=== PATIENT | male | born 1950 | race Caucasian/White ===

== ENCOUNTER 2018-03-14 11:23 | Inpatient (IN) | payer MEDICARE, SELFPAY ==
[~2018-03-14 11:23] MED LIST: ISOVUE-370 76%-LOCM 1 ML ONE
[2018-03-14] MEDS ORDERED: Acetaminophen 500 MG TAB ONE ×2 (12:00→12:02)
[2018-03-14] MEDS ORDERED: Acetaminophen 650 MG Suppository ONE (12:04)
[2018-03-14 12:16] LABS: Hemoglobin 12.5 g/dL (14.0-18.0); Mean Corpuscular HGB CONC 33.2 g/dL (32.0-36.0); Mean Corpuscular Hemoglobin 35.6 pg (27.0-31.0); Mean Platelet Volume 8.2 fL (7.4-10.4); Platelet Count 281 thou/uL (130-400); RBC Distribution Width 13.3 % (11.5-14.5); White Blood Cell (WBC) Count 12.3 thou/uL (4.8-10.8)
[2018-03-14 12:31] LABS: Band 35 % (5-11); Lymphocytes 8 % (21-51); MDiff Complete? YES; Macrocytosis SLIGHT = 6-15 cells (100X) (0-5/hpf); Monocytes 7 % (0-10); Neutrophil 49 % (42-75); PLT Morphology Comment Appears Adequate
[2018-03-14 12:35] LABS: ALT (SGPT) 27 U/L (8-55); AST (SGOT) 71 U/L (5-34); Albumin 3.6 g/dL (3.4-4.8); Alkaline Phosphatase 71 U/L (40-150); Anion Gap 22 mmol/L (10-20); BUN (Urea Nitrogen) 40 mg/dL (8.4-25.7); Bilirubin, Total 0.5 mg/dL (0.2-1.2); Calc. Creatinine Clearance 0 mL/min (70-130); Calcium 8.7 mg/dL (7.8-10.44); Carbon Dioxide 16 mmol/L (23-31); Chloride 99 mmol/L (98-107); Estimated GFR-MDRD 36; Globulin 3.3 g/dL (2.4-3.5); Glucose 81 mg/dL (80-115); Potassium 5.6 mmol/L (3.5-5.1); Protein, Total 6.9 g/dL (5.8-8.1); Sodium 131 mmol/L (136-145)
[2018-03-14 12:45] LABS: CKMB 76.9 ng/mL (0-6.6)
[2018-03-14] MEDS ORDERED: Piperacillin/Tazobactam 4.5 GM VIAL ONE (13:51)
--- NOTE | 2018-03-14 14:32 | CT ---
CT OF THE ABDOMEN AND PELVIS WITH IV CONTRAST: Date: 03/14/18 INDICATION: History of abdominal pain and buttocks blistering. FINDINGS: There is mild bibasilar atelectasis. There is a calcified granuloma in the right lower lobe. Adrenal glands and pancreas appear within normal limits. There are calcified granuloma within the spring er and spleen. There is mild ectasia of the infrarenal abdominal aorta measuring 2.9 cm. There are scattered diverticula involving the colon. There is moderate dilatation of the bladder. No evidence of acute osseous abnormality is evident. IMPRESSION: 1. No definite acute abnormality. 2. Findings of prior granulomatous disease. 3. Mild ectasia of the infrarenal abdominal aorta is stable to the comparison dated 12/31/15. 4. Moderate distention of the bladder. 5. Colonic diverticulosis without evidence of active diverticulitis. POS: [facility]
[2018-03-14 15:48] LABS: Bilirubin Negative (Negative); Blood, Urine Trace (Negative); Clarity CLEAR (Clear); Glucose, Urine (Dipstick) Negative (Negative); Leukocyte Negative (Negative); Nitrite Positive (Negative); Protein, Urine (Dipstick) Trace mg/dL (Neg-Trace); Specific Gravity, Urine 1.023 (1.002-1.036); Urobilinogen 0.2 mg/dL (0.2-1.0)
[2018-03-14 15:50] LABS: Bacteria/HPF None Seen HPF (None Seen); Hyaline Casts/LPF 0-3 HYALINE CAST LPF (0-3 Hyaline); Pathc Cast-AUWi Flag 0.43 (0-2.49); Squamous Epithelial None Seen HPF (0-3); WBC/HPF 0-3 HPF (0-3)
--- NOTE | 2018-03-14 16:00 | RAD ---
CHEST 1 VIEW: Date: 03/14/18 COMPARISON: 09/17/16. HISTORY: Fever. FINDINGS: Normal cardiac silhouette. Pulmonary vessels and hilum are normal. Costophrenic angles are clear. No consolidation or mass. No pneumothorax or osseous abnormalities. IMPRESSION: No acute cardiopulmonary process. POS: [facility]
[2018-03-14] MEDS ORDERED: Acetaminophen 325 MG TAB PO PRN (16:17)
[2018-03-14] MEDS ORDERED: Vancomycin HCl 1 GM in Premix Bag 1 BAG IVPB SCH (16:30)
[2018-03-14] MEDS ORDERED: Heparin 10,000 UNITS/ 10 ML VIAL ONE (16:35)
[2018-03-14 16:41] LABS: Troponin I 0.023 ng/mL (< 0.028)
[2018-03-14 16:45] LABS: Alcohol Less than 10 mg/dL (Less than 10); Anion Gap 15 mmol/L (10-20); BUN (Urea Nitrogen) 36 mg/dL (8.4-25.7); Calc. Creatinine Clearance 0 mL/min (70-130); Calcium 8.3 mg/dL (7.8-10.44); Carbon Dioxide 18 mmol/L (23-31); Chloride 102 mmol/L (98-107); Estimated GFR-MDRD 44; Glucose 99 mg/dL (80-115); Potassium 5.2 mmol/L (3.5-5.1); Sodium 130 mmol/L (136-145)
[2018-03-14] MEDS ORDERED: Sodium Chloride 0.9% 500 ML IV SCH (17:00)
[2018-03-14] MEDS ORDERED: Amiodarone HCl 450 MG, Admixture Fee 1 EACH in Dextrose 5% in Water 250 ML IVPB SCH (17:30)
[2018-03-14] MEDS ORDERED: Amiodarone HCl 150 MG, Admixture Fee 1 EACH in Dextrose 5% in Water 100 ML IVPB SCH (17:30)
[2018-03-14] MEDS ORDERED: NACL ISO OSM IVPB SCH (18:00)
[2018-03-14] MEDS ORDERED: FLUCONAZOLE IVPB SCH (18:00)
[2018-03-14] MEDS ORDERED: ADMIXTURE FEE CHEMO IVPB SCH (18:00)
[2018-03-14] MEDS ORDERED: VANCOMYCIN/ZOSYN IVPB PRN (18:06)
--- NOTE | 2018-03-14 18:08 | CT ---
CT BRAIN 03/14/18 HISTORY: Altered mental status. Noncontrast enhanced CT images of the brain obtained. Images demonstrate age appropriate cortical atrophy. No evidence of acute intracranial masses, hemorr hages, strokes or contusions seen. IMPRESSION: Unremarkable CT brain. POS: [facility]
[2018-03-14] MEDS: Multivitamins, Adult 10 ML, Folic Acid 1 MG, Thiamine HCl 100 MG in Dextrose 5 %-0.45 %... IV SCH (18:17)
[2018-03-14] MEDS: Sodium Chloride 0.9% 1,000 ML IV SCH (18:36)
[2018-03-14] MEDS ORDERED: Vancomycin HCl 500 MG in Sodium Chloride 0.9% 100 ML IVPB SCH (18:45)
[2018-03-14 19:25] LABS: Troponin I 0.014 ng/mL (< 0.028)
--- NOTE | 2018-03-14 19:38 | RAD ---
AP VIEW CHEST: 03/14/18 HISTORY: Fever, sepsis, status post line placement. AP view chest is obtained on 03/14/18. Comparison made to previous exam from earlier in the day on 03/14/18. AP view chest demonstrates placement of a right jugular central line distal tip overlying the right a trium. No evidence of hemo or pneumothorax seen. Pulmonary vasculature congestion seen. No evidence of effus ions or pneumonia seen. IMPRESSION: Pulmonary vascular congestion otherwise unremarkable AP view chest. POS: [facility]
[2018-03-14] MEDS: Piperacillin/Tazobactam 3.375 GM in Sodium Chloride 0.9% 100 ML IVPB SCH (19:50)
[2018-03-14] MEDS: Famotidine/PF 20 mg/2ml Vial SLOW IVP SCH (20:38)
[2018-03-14] MEDS: ADMIXTURE FEE CHEMO IVPB SCH (20:38)
[2018-03-14] MEDS: NACL ISO OSM IVPB SCH (20:38)
[2018-03-14] MEDS: FLUCONAZOLE IVPB SCH (20:38)
--- NOTE | 2018-03-14 22:52 | HP ---
CHIEF COMPLAINT: Fever. HISTORY OF PRESENT ILLNESS: This patient is a 68-year-old male who has previously been admitted to [facility] with similar findings. The patient has a history of significant alcoholism and it is un clear if he was actually caring for the gentleman but sounds like his ex- may be working in on [facility]. Today, the patient presented via the emergency department with the complaints of fevers. The omega chávez is not giving much history at the moment and is not entirely clear how it came to pass. He was brought to the emergency room and it sounds like it was mostly related to febrile illness and perhaps some generalized weakness. ER provider primarily get the history from the EMS. Apparently, the omega chávez had some rash onset for about 10 days prior to admission that has been worsening. He also repor sherry fevers, chills, and was incontinent and apparently had some abdominal discomfort with palpation o n the scene. He had described to the ER physician, 02/03 pain, reported he had some associated chills . They also reported review of systems that was otherwise unremarkable. The patient currently is so mnolent. He is difficult to arouse. He does eventually wake up a bit and then goes back to sleep ve ry promptly. In the emergency department, the patient was found to have significant dermatitis. The patient was febrile to 100.6 and his heart rate up to 108 concerning for possibility of sepsis. The patient received 1 liter of normal saline. He was given vancomycin and Zosyn. REVIEW OF SYSTEMS: As noted above, cannot be obtained from the patient. PAST MEDICAL HISTORY: Obtained from the patient's medical record, indicates that he has the prior ms story of hypertension, peripheral vascular disease, hyperlipidemia, alcoholism. PAST SURGICAL HISTORY: Right BKA in 2013, inguinal hernia repair, and vein ablation. FAMILY HISTORY: Unobtainable. Records indicate he denied any significant family history in the past . ALLERGIES: None known. HOME MEDICATIONS: Cannot be confirmed. PHYSICAL EXAMINATION: VITAL SIGNS: Most recent vital signs, BP 125/54, pulse 67, respirations 18, O2 sat 95% on room air. GENERAL APPEARANCE: Age-appropriate male. He is very somnolent. He does not arouse even to a franks al rub; however, when attempting to roll the patient, he looked at his backside. He does reach out t o grab the rail, help with a turn, but then is not terribly interactive. HEENT: His pupils are sluggish, but reactive. I do not see any oral lesions to the degree that he l et me examine. NECK: Supple and symmetric. CARDIOVASCULAR: His heart is regular rate and rhythm without murmur. LUNGS: Clear bilaterally. ABDOMEN: Soft, nontender, nondistended with positive bowel sounds. No masses, no organomegaly. The re is no evidence of tenderness at this point. EXTREMITIES: he has right BKA. Left lower extremity has significant dermatitis consistent with poss ible tinea pedis over the plantar surface of the foot extending up on to the dorsum. He has signific ant onychomycosis. SKIN: In addition to the foot findings, the patient has dense red erythema that is fairly well merritt cated over the genitals extending onto the medial thighs about 6 to 8 inches and extending up to the gluteal cleft from the perineum with some minor skin breakdown in the gluteal cleft area as well. Th e whole area has a pretty foul odor. LABORATORY DATA: White count 12.3, hemoglobin 12.5, platelets 281, 35% bands. Sodium 131, potassium 5.6, chloride 99, CO2 of 16, BUN 40, creatinine 1.9, AST 71, ALT 27, CK is 2572, CK-MB 76.9. Urinal ysis shows trace ketones, trace blood, positive nitrites. IMAGING STUDIES: Chest x-ray is negative. CT of the abdomen and pelvis reveals some diverticulosis without evidence of diverticulitis. Findings of prior granulomatous disease. Moderate distention of the bladder. Mild ectasia of the infrarenal abdominal aorta, stable from previous exam in 2016. EK G shows some sinus bradycardia, some sinus arrhythmia, and premature ventricular complexes. IMPRESSION AND PLAN: 1. Sepsis. The patient has had some tachycardia, tachypnea, elevated white blood count with signifi cant percentage of bands with evidence of infection in the perineal area. The patient was given vanc omycin and Zosyn in the emergency department, I believe that is a reasonable regimen, we will continu e that for now. He has blood cultures and wound cultures pending. We will hydrate; however, the pat ient has some hyponatremia and given his history of alcoholism and I want to be careful not to be ove rly aggressive, although he needs the fluids, need to not rapidly reverse what is still relatively mi ld hyponatremia. 2. Skin infection of the perineum with cellulitis. The patient appears to have cellulitic changes i nvolving the medial thighs into the gluteal cleft. There are also some erythema of the scrotum and p anna, but this does not appear to be of Rebecca's gangrene at this time. In fact, this appears to b e a significant burn from where the patient has likely been voiding and likely sitting in urine for a n extended period of time. This looks like it may be now secondarily infected. The patient will con tinue with the vancomycin and Zosyn. I will place a Reese catheter and ask Wound Care to see the pat ient. We will also cover with some Diflucan for the concerning possibility that there may be some fu ngal component of this as well. 3. Alcoholism. We will check an alcohol level now as the patient is not terribly responsive. He do es not have the odor of alcohol at the moment. We will also order a CT of the head just to clear any new pathology there. 4. Hyponatremia likely secondary to chronic alcohol use. The patient also appears to have some dehy dration. He will be receiving IV normal saline, but he will also be getting some D5 half at a lower rate for the banana bag. 5. Hyperkalemia. Repeating labs now should improve with hydration. No evidence of requirements for more aggressive treatment. 6. Dehydration. The patient has some prerenal azotemia and appears to be clinically dry on exam. W e will hydrate. 7. Acute renal insufficiency. The patient's labs back in June indicated a normal creatinine, it is now 2.9 with prerenal indices. Should improve with hydration, we will renally dose meds and janeen nue to monitor. 8. Rhabdomyolysis. The patient's CK is elevated at 2572. We will continue to trend that with hydra tion. I do not believe it is high enough, we need to consider alkalinizing the urine at this point, although he does appear to have a little bit of a metabolic acidosis. I think that will improve with hydration. 9. Elevated CK-MB. We will continue to trend the patient's troponin. His repeat is 0.023. 10. Mild metabolic acidosis with CO2 of 16. Again, suspect this will improve with hydration and not require bicarbonate, we will continue to monitor. 11. Macrocytosis secondary to significant alcohol use over the long-term. We will give the patient daily banana bag. 12. History of hypertension. We will attempt to clarify the patient's medication regimen. 13. Peripheral vascular disease. We will avoid sequential compression devices and provide Lovenox f or deep venous thrombosis prophylaxis.
[2018-03-15] MEDS: Sodium Chloride 0.9% 1,000 ML IV SCH ×4 (02:45→21:06)
[2018-03-15] MEDS: Piperacillin/Tazobactam 3.375 GM in Sodium Chloride 0.9% 100 ML IVPB SCH ×4 (02:46→21:04)
[2018-03-15 05:14] LABS: #Eosinphils 0.2 thou/uL (0.0-0.7); #Lymphocytes 0.6 thou/uL (1.20-3.40); #Monocytes 0.7 thou/uL (0.11-0.59); #Neutrophils 5.6 thou/uL (1.40-6.50); %Basophils 0.6 % (0.0-1.0); %Lymphocytes 8.5 % (21.0-51.0); %Monocytes 9.9 % (0.0-10.0); %Neutrophils 77.9 % (42.0-75.0); Hemoglobin 11.3 g/dL (14.0-18.0); Mean Corpuscular HGB CONC 32.2 g/dL (32.0-36.0); Mean Corpuscular Hemoglobin 34.6 pg (27.0-31.0); Mean Platelet Volume 8.2 fL (7.4-10.4); Platelet Count 246 thou/uL (130-400); RBC Distribution Width 13.3 % (11.5-14.5); Red Blood Cell (RBC) Count 3.26 mill/uL (4.70-6.10); White Blood Cell (WBC) Count 7.1 thou/uL (4.8-10.8)
[2018-03-15 05:33] LABS: Anion Gap 12 mmol/L (10-20); BUN (Urea Nitrogen) 28 mg/dL (8.4-25.7); CK (CPK) 1141 U/L (30-200); Calc. Creatinine Clearance 76 mL/min (70-130); Calcium 8.2 mg/dL (7.8-10.44); Carbon Dioxide 21 mmol/L (23-31); Chloride 107 mmol/L (98-107); Estimated GFR-MDRD 70; Glucose 87 mg/dL (80-115); Potassium 4.2 mmol/L (3.5-5.1); Sodium 136 mmol/L (136-145)
[2018-03-15] MEDS: traMADol HCl 50 MG TAB PO PRN ×2 (05:53→13:54)
[2018-03-15] MEDS ORDERED: Enoxaparin Sodium 30 MG/0.3 ML SYRINGE SC SCH (09:00)
[2018-03-15] MEDS: Famotidine/PF 20 mg/2ml Vial SLOW IVP SCH ×2 (09:32→21:06)
--- NOTE | 2018-03-15 10:55 | PDOC.PN ---
- Subjective Encounter Start Date: 03/15/18 Encounter Start Time: 10:52 Doing much better. Reports that he drinks six beers per day. Smokes two packs per day. He is spending the majority of the time in a wheelchair. Only gets up to get from the the toilet. He is incontinent of urine. Typically when asleep, but daytime too. Gets out once a month to go to [facility] with ex-. Walks on prosthesis from door to her car. - Objective Resuscitation Status: Resuscitation Status FULL:Full Resuscitation Vital Signs & Weight: Vital Signs (12 hours) Temp Pulse Ox 03/15/18 08:00 97.8 F 03/15/18 04:00 98.5 F 03/15/18 00:53 98 03/15/18 00:00 98.8 F Weight Weight 180 lb 1.883 oz Most Recent Monitor Data Heart Rate from ECG 80 NIBP 127/60 NIBP BP-Mean 102 Respiration from ECG 14 SpO2 98 I&O: 03/14/18 03/15/18 03/16/18 06:59 06:59 06:59 Intake Total 1974 240 Output Total 2040 200 Balance -66 40 Result Diagrams: 03/15/18 04:37 03/15/18 04:37 Additional Labs: Accuchecks 03/14/18 23:53 POC Glucose 100 Phys Exam - Physical Examination Constitutional: NAD HEENT: PERRLA Respiratory: no wheezing, no rales, no rhonchi Cardiovascular: RRR, no significant murmur, no rub Gastrointestinal: soft, non-tender, no distention, positive bowel sounds Musculoskeletal: no edema Right BKA Neurological: non-focal Psychiatric: normal affect, A&O x 3 Deviation from normal: Was disoriented this morning per nurse. Deviation from normal: Leonel derm of face. Erythema of the groin, perineal and rectal cleft area. Dx/Plan (1) Septic shock Code(s): A41.9 - SEPSIS, UNSPECIFIED ORGANISM; R65.21 - SEVERE SEPSIS WITH SEPTIC SHOCK Status: Acute Comment: Became hypotensive in ED after I saw him. Required pressor support. Much improved with fluids. Downgrade unit. (2) Sepsis affecting skin Code(s): A41.9 - SEPSIS, UNSPECIFIED ORGANISM Status: Acute Comment: Gram positive bacteremia. Secondary to skin infection of the groin/buttock area. Continue Vanc/Zosyn. (3) Cellulitis and abscess of buttock Code(s): L02.31 - CUTANEOUS ABSCESS OF BUTTOCK; L03.317 - CELLULITIS OF BUTTOCK Status: Acute Comment: Secondary to incontinence. Continue abx. Continue wound care. (4) Acute renal failure Status: Acute Comment: Secondary to dehydration and sepsis. Improved with fluids. (5) PVD (peripheral vascular disease) Code(s): I73.9 - PERIPHERAL VASCULAR DISEASE, UNSPECIFIED Status: Acute (6) Hyperkalemia Code(s): E87.5 - HYPERKALEMIA Status: Resolved Comment: Improved. (7) Incontinence of urine Code(s): R32 - UNSPECIFIED URINARY INCONTINENCE Status: Acute Comment: Consult Urology. May only be functional due to poor mobility and alcohol. (8) Hyperlipidemia Code(s): E78.5 - HYPERLIPIDEMIA, UNSPECIFIED Status: Acute (9) Hypertension Code(s): I10 - ESSENTIAL (PRIMARY) HYPERTENSION Status: Acute Comment: Holding meds in light of the hypotension. (10) Macrocytic anemia Code(s): D53.9 - NUTRITIONAL ANEMIA, UNSPECIFIED Status: Acute Comment: Secondary to EtOH. banana bag. - Plan * above.
--- NOTE | 2018-03-15 11:22 | PDOC.EVN ---
Event Note - Event Note Event Note: Patient had an episode of NSVT in the ED. Amiodarone was given. He has not had any recurrence since that time. Will obtain an echo. Consult cardiology in light of his risk factors.
--- NOTE | 2018-03-15 11:30 | CON ---
DATE OF CONSULTATION: 03/15/2018 CONSULTING PHYSICIAN: Hospitalist group. REASON FOR CONSULTATION: ICU protocol. Following encompass 70 minutes of time. Of that time, greater than 50% was spent with the patient an d/or on the patient's unit in the hospital. HISTORY OF PRESENT ILLNESS: The patient is a 68-year-old male who was admitted to the hospital [facility] with fever and extensive cellulitic rash in his groin area extending posteriorly towards his but tocks and down his thighs posteriorly. He has cultures that are growing out gram positive cocci. He is currently on broad spectrum IV antibiotics. He is not requiring any vasopressors and has been he modynamically stable since the time of admission. PAST MEDICAL HISTORY: 1. Peripheral vascular disease requiring a right BKA in 2013. 2. Hypertension. 3. Hyperlipidemia. 4. Alcohol abuse. PAST SURGICAL HISTORY: Additionally, he has had inguinal hernia repair and vein ablation. FAMILY MEDICAL HISTORY: Remarkable for no illnesses. ALLERGIES: None. HOME MEDICATIONS: Desyrel 100 mg at bedtime, tramadol 50 mg b.i.d., lisinopril 10 mg daily. SOCIAL HISTORY: Two pack per day smoker, drinks a 6 pack per day. Denies any use of illicit drugs o r hard liquor. PHYSICAL EXAMINATION: VITAL SIGNS: Temperature 98.5, pulse 68, blood pressure 139/64. Intake since admission 1973, output 2039. HEENT: Pupils are reactive. Sclerae are anicteric. Oropharynx clear. NECK: He has a right IJ triple lumen catheter in place. CARDIOVASCULAR: S1, S2 regular without audible murmur. LUNGS: Clear without wheezing or rhonchi. ABDOMEN: Soft, nontender, nondistended. EXTREMITIES: Right BKA. SKIN: He has got a red cellulitic rash extending over his scrotum posteriorly towards his buttocks a nd down his thighs in a well demarcated margin. LABORATORY DATA: White blood cell count 7.1, hematocrit 35.0, platelet count 246. Sodium 136, potas sium 4.2, chloride 107, CO2 of 21, BUN 28, creatinine 1.0, glucose 87. Alcohol level was less than 1 0. X-RAY FINDINGS: His chest x-ray shows clear diaphragms. He has a defibrillator pad obscuring his ri ght hilum area. The central line is noted. No evidence of pneumothorax. ASSESSMENT: 1. Cellulitis. 2. Sepsis syndrome. 3. Peripheral vascular disease. 4. Alcoholism. PLAN: 1. This patient can be transferred out to a monitored bed. Patient will continue antibiotics - I th ink the Zosyn and vancomycin are reasonable. Once the identities of the organisms are back, then it can be consolidated. 2. Continue IV fluids, thiamine, folate supplementation. 3. Enoxaparin for deep venous thrombosis prophylaxis and Pepcid for gastrointestinal prophylaxis.
[2018-03-15] MEDS: Vancomycin HCl 1.5 GM in Sodium Chloride 0.9% 250 ML 300 ML IVPB SCH (12:42)
[2018-03-15 14:55] VITALS: BMI 26.6
[2018-03-15] MEDS ORDERED: Nystatin Cream 15 GM TUBE TOP SCH (15:00)
[2018-03-15] MEDS: Nystatin Cream 30 GM TUBE TOP SCH ×2 (16:06→21:05)
[2018-03-15] MEDS: Multivitamins, Adult 10 ML, Folic Acid 1 MG, Thiamine HCl 100 MG in Dextrose 5 %-0.45 %... IV SCH (16:06)
[2018-03-15] MEDS: traMADol HCl 50 MG TAB PO SCH (21:05)
[2018-03-15] MEDS: traZODone HCl 50 MG TAB PO SCH (21:06)
[2018-03-15] MEDS: FLUCONAZOLE IVPB SCH (22:00)
[2018-03-15] MEDS: NACL ISO OSM IVPB SCH (22:00)
[2018-03-15] MEDS: ADMIXTURE FEE CHEMO IVPB SCH (22:00)
--- NOTE | 2018-03-15 23:29 | CON ---
DATE OF CONSULTATION: 03/14/2018 CARDIOLOGY CONSULTATION PRIMARY CARE PHYSICIAN: [facility] REFERRING DOCTOR: Dr. Teja Covington. REASON OF CARDIOLOGY CONSULT: History of nonsustained ventricular tachycardia at the ER on 03/14/20 18. HISTORY OF PRESENT ILLNESS: Mr. Alexander is a 68-year-old male with a significant history of peripheral artery disease with history of amputation, the below knee amputation in 2013. Hypertensi on, hyperlipidemia, and alcohol or ETOH abuse. Patient was transferred to the emergency department w hen he was found down by patient's ex- who periodically check on this patient. Prior to this ev ent that accident, patient denying any cardiac complaints and patient does not know how long he was d own and when he woke up, he knew he was confused when the EMS asking the several questions to him. A fter patient was transferred to the emergency department, the patient was found to have a sepsis seco ndary to Gram positive cocci and yeast infection to the groin area. At that time according to the em ergency department report, patient has several episodes of nonsustained ventricular tachycardia; mckinley eloina, there are no EKG or any records showing the length of the episodes at this moment in his chart o r in his medical record. Initially, patient was on amiodarone bolus of 150 mg bolus IV was given and starts amiodarone IV drip; however, because patient could not tolerate a vein ablation due to blood pressure was hypotensive, the medication was discontinued. After patient was transferred to the ICU, at this moment, patient does not have any SVT episodes. Patient has aortogram in the 2011 with stent placement to right superficial femoral arteries by Dr. Danielle condon. Patient has a right [id number]-aht-[id number] amputation in 2013. He has not had any cardiac workup i n Dr. Vogel's office or in this hospital. PAST MEDICAL HISTORY: 1. Hypertension. 2. Peripheral artery disease with stent placement and right superficial femoral arteries in 2011. 3. Hyperlipidemia. 4. ETOH abuse and current smoker. PAST SURGICAL HISTORY: Right knee, right below-knee amputation in 2013, inguinal hernia repair and v ein ablation and stent to the right superficial femoral arteries in 2011. FAMILY HISTORY: Patient's father at the age of 50s with multiple myocardial infarctions. Jennifer ornelas's mother has history of diabetes, she is still alive. SOCIAL HISTORY: Patient is . He lives by himself in an apartment, but patient's ex- yoandy cked on him this once a day. Patient has 3 children who grown and live well. Patient drinks at leas t 6 packs of beer a day. He smoked 2 packs of cigarettes a day for more than 50 years. He denied an y illicit drug abuse. ALLERGIES: No known drug allergies. MEDICATIONS: Lisinopril 10 mg once a day, trazodone 100 mg once a day, tramadol 50 mg twice a day, a nd fenofibrate once a day for cholesterol. REVIEW OF SYSTEMS: Review of systems was negative, unless otherwise mentioned in the HPI or below. Patient denies any blood in the stool or urine. Patient's complaint of neuropathy to the bilateral h ands and left legs. He has hard to walk with his walk due to the history of BKA 2013 and he usually uses a wheelchair. PHYSICAL EXAMINATION: VITAL SIGNS: Blood pressure 131/68, pulse 71, respiratory rate 16, O2 sat 98% with room air, tempera ture 98.4. GENERAL: Patient is alert, oriented x4, mildly flat express, no acute distress at this moment. HEENT: Normocephalic, atraumatic. EYES: Extraocular muscle movement intact. ENT AND MOUTH: Oral and nasal mucosa was moist without lesion. NECK: Supple. No JVD. Normal range of motion. LUNGS: Clear to auscultation bilaterally, but there is diminished at the bases. CARDIOVASCULAR: Regular rate and rhythm. Normal S1, S2. There are no S3 or S4. No murmur, rubs no sherry. ABDOMEN: Soft, nontender, mass to palpate. Bowel sounds are present. MUSCULOSKELETAL: Patient able to move all extremities, but the below knee amputation to the right lo wer extremities. SKIN: There is redness and yeast-like infection to the groin area. PSYCHIATRIC: Alert, oriented x4. LABORATORY DATA: WBC today is 7.1, hemoglobin 11.3, MCV is 108, MCH 34.6, platelet 246. Sodium 136, potassium 4.2, BUN 28, creatinine 1.06. AST is 71, ALT is 27, creatine kinase is 2572 and 1141. Tr oponin is 0.010, 0.023, and 0.014. Urine ketone is trace positive, urine nitrite is positive, and bl ood culture x2 shows positive to Gram positive cocci. ASSESSMENT AND PLAN: 1. Status post nonsustained ventricular tachycardia, unknown lengths and unknown morphology at this moment because no records in the chart or the medical record at this moment. Patient's off the amiod arone drip at this moment; however, he has not had any another episode since patient was transferred from the ER to the floor. We would like to continue to monitor with amiodarone drip at this moment, because patient could not tolerate. We would like to continue to monitor on the telemetry. 2. Sepsis secondary to Gram positive cocci. He is on the vancomycin and Zosyn, which is managed by patient's primary care doctor. 3. Hypertension. The patient's blood pressure is stable at this moment, we would like to continue t o monitor. Once patient's condition is stable, we like to resume patient's home blood pressure medic ations. 4. Peripheral artery disease with history of stent placement and below knee amputation in 2013. The re are 2+ pulses in the left bilateral lower extremities and right femoral arteries. At this moment, the patient denied any pain to the lower extremities. We would like to continue to monitor. He is on the Lovenox 40 mg subcutaneous once a day. 5. Hyperlipidemia. We like to start fenofibrate for this patient once we got dosage. 6. Elevated creatine kinase, which is possible due to the prolonged rhabdomyolysis from unknown july th of the down. 7. ETOH and current smoker. ETOH and smoking cessation education given to the patient. At this mom ent, patient does not want to start cessation for those and he does not want to down dose intake at t his moment. Thank you very much for allowing the Cardiology service to participate in care of this patient. We w ill follow along with the patient care team and make recommendation as appropriate.
--- NOTE | 2018-03-16 00:50 | CON ---
CARDIOLOGY CONSULT NOTE DATE OF ADMISSION: 03/14/2018 DTAE OF CONSULTATION: 03/15/2018 INDICATION FOR CONSULTATION: This is a 68-year-old gentleman who apparently had a possible syncopal episode, was in the emergency room earlier today as he was brought in by EMS after family member have called after that he was concerned with the patient on into the phone, apparently was found down at home and was brought to the emergency room. The patient thinks perhaps he fell off a wheelchair; how ever, the patient does have a history of alcohol use and may have had a fall due to the alcohol. Whe n he arrived in the emergency room, the patient had some nonsustained ventricular tachycardia or poss ibly ventricular tachycardia. He was started on IV amiodarone in the emergency room and was transfer red to the B side of the Intensive Care Unit. It would appear that this gentleman had an infection w hat appears to be yeast infection in the groin area. Also, around the genitals in the upper thighs a nd may actually have sepsis and this may be the etiology of the nonsustained ventricular tachycardia. We do not have any previous history that this gentleman has any coronary artery disease that I am a suh of. He does have peripheral vascular disease and has undergone a right BKA due to apparently ga ngrene. He did have venous insufficiency ulcers in the past. He underwent a venous ablation and the n also had arterial disease and underwent a stent placement to the proximal superficial femoral arter y. He then later underwent an amputation of the right lower extremity with a BKA. At this time, Matthew sotelo he is followed by the [facility]. He does not recall whether or not he has had any recent ev aluations from echocardiogram or stress testing at this time. Otherwise, he is relatively stable. H e denies any chest pain or significant shortness of breath. Unfortunately, he continues to smoke 1-2 packs a day and drinks about a 6 pack of alcohol a day. It sounds as if he is somewhat mobile, but pretty much sits in a chair and is sometimes incontinent of stool and urine and his hygiene is very p oor and thus he has now developed infections. At this time, his blood pressure is 110/58, his heart rate is 67 and he is showing a sinus rhythm. He is afebrile, respiratory rate 20. For the past medi makayla history, otherwise social history, review of systems, allergies and review of his medications, pl ease refer to the notes dictated by the nurse practitioner. I have reviewed those notes. We have di scussed with the patient. I would agree with that. PHYSICAL EXAMINATION: HEENT: Shows head to be normocephalic and atraumatic. Carotid pulses are present. I cannot hear an y bruits. CHEST: Clear to auscultation without rales, rhonchi, or wheezing. CARDIOVASCULAR: Exam reveals a regular rate and rhythm at this time. There were no significant murm urs, heaves, thrills, bruits, or rubs. ABDOMEN: Obese. Positive bowel sounds. No tenderness was noted. No masses were noted. EXTREMITIES: Showed no evidence of edema. He does have a right BKA. Pedal pulses are present in th e left lower extremity and left foot. NEUROLOGIC: The patient appears to be relatively intact. He is unable to get out of bed to do any f urther evaluations. Also, he gets able to walk with a prosthesis. LABORATORY AND X-RAY FINDINGS: Shows a hemoglobin of 11.3 with hematocrit of 35, WBC was 7.1 on admi ssion; however, last night around midnight, the WBC was 12.3. His chemistries show a sodium of 136, BUN was 28. His CK on admission was 2572, his MB was 76.9. Troponin I was 0.01 increased up to 0.02 and then has now decreased back down to 0.014 and this appears to be more of a muscle problem with i ncreased creatinine, then actual myocardial damage. There would not be unusual for the MB to be slig htly elevated with a CK of 2572. The patient did not know how long he has remained on the floor prio r to being brought to the emergency room. His urinalysis showed no significant bacteria. His plasma alcohol was less than 10. IMPRESSION: 1. Possible sepsis with significant infection involving the groin area which appears to be candidias is that may have superimposed infection. This is being treated by the medical team and he is relativ sandro asymptomatic at this time, does not appear to be very septic. 2. History of nonsustained ventricular tachycardia. We did not have the recording that showed in th e emergency room, but based on the physician that was in the emergency room last night, she was gris g another patient with a nurse, told her that the patient had ventricular tachycardia when she arrive d in the room, the patient already self terminated. We did not have any tracings to determine exactl y what that entailed, but at this time, he has not had any workup, would advise him to have an echoca rdiogram and probable stress testing prior to discharge to see whether or not there is any evidence o f coronary artery disease. 3. History of tobacco abuse. He will be advised to stop smoking. 4. History of alcohol abuse. Patient will need to be watched for withdrawals. 5. History of peripheral vascular disease. He is status post a right BKA, but the leg appears to be relatively stable. He has pedal pulses. 6. Rhabdomyolysis after being on the floor for an undetermined length of time. 7. Cellulitis and possible abscess also on the buttock area. It is being treated by the Hospitalist Service for this. Further care and recommendations will depend on the echocardiogram as well as str ess testing in this gentleman.
[2018-03-16] MEDS: Piperacillin/Tazobactam 3.375 GM in Sodium Chloride 0.9% 100 ML IVPB SCH ×2 (02:55→09:02)
[2018-03-16 05:20] LABS: #Eosinphils 0.4 thou/uL (0.0-0.7); #Lymphocytes 0.8 thou/uL (1.20-3.40); #Monocytes 0.8 thou/uL (0.11-0.59); #Neutrophils 4.1 thou/uL (1.40-6.50); %Basophils 0.7 % (0.0-1.0); %Eosinophils 5.9 % (0.0-10.0); %Monocytes 13.4 % (0.0-10.0); Hemoglobin 10.8 g/dL (14.0-18.0); Mean Corpuscular Hemoglobin 35.3 pg (27.0-31.0); Mean Platelet Volume 7.5 fL (7.4-10.4); Platelet Count 266 thou/uL (130-400); RBC Distribution Width 13.3 % (11.5-14.5); Red Blood Cell (RBC) Count 3.05 mill/uL (4.70-6.10); White Blood Cell (WBC) Count 6.2 thou/uL (4.8-10.8)
[2018-03-16 05:32] LABS: Anion Gap 9 mmol/L (10-20); BUN (Urea Nitrogen) 13 mg/dL (8.4-25.7); Calc. Creatinine Clearance 94 mL/min (70-130); Calcium 8.2 mg/dL (7.8-10.44); Carbon Dioxide 23 mmol/L (23-31); Chloride 108 mmol/L (98-107); Estimated GFR-MDRD 86; Glucose 115 mg/dL (80-115); Potassium 3.6 mmol/L (3.5-5.1); Sodium 136 mmol/L (136-145)
--- NOTE | 2018-03-16 09:02 | PRG ---
DATE OF SERVICE: 03/16/2018 He feels better. He says he is having some effects of diarrhea from the antibiotics he is taking. PHYSICAL EXAMINATION: VITAL SIGNS: On exam his temperature is 98.9, pulse 61, respirations 14, O2 sat 98% on room air, blo od pressure 125/56. HEENT: Unremarkable. NECK: No JVD. LUNGS: Clear to auscultation anteriorly. CARDIOVASCULAR: S1 and S2 regular. ABDOMEN: Soft. Groin still has cellulitic changes, but overall better than yesterday. LABORATORY DATA: White blood cell count 6.2, hematocrit 32.7, platelet count 266. Sodium 136, potas sium 3.8, chloride 108, CO2 23, BUN 13, creatinine 0.8, glucose 115. ASSESSMENT: 1. Cellulitis. 2. Sepsis syndrome. 3. Peripheral vascular disease. 4. Alcoholism. PLAN: At this point, I believe the patient can be transferred up to the medical floor. He will cont inue antibiotic therapy. He has multiple organisms growing out of the wound cultures. For the time being, he will stay on the current antibiotic regimen until we have final identification and sensitiv ities back.
[2018-03-16] MEDS: Enoxaparin Sodium 40 MG/0.4 ML SYRINGE SC SCH (09:03)
[2018-03-16] MEDS: Famotidine/PF 20 mg/2ml Vial SLOW IVP SCH ×2 (09:03→20:54)
[2018-03-16] MEDS: traMADol HCl 50 MG TAB PO SCH ×2 (09:03→20:53)
[2018-03-16] MEDS: Nystatin Cream 30 GM TUBE TOP SCH ×3 (09:12→21:15)
[2018-03-16 12:15] LABS: Vancomycin, Trough 12.2 ug/mL
[2018-03-16] MEDS ORDERED: Vancomycin HCl 1 GM in Premix Bag 1 BAG IVPB SCH (13:00)
--- NOTE | 2018-03-16 13:06 | CON ---
DATE OF CONSULTATION: 03/16/2018 REASON FOR CONSULTATION: Bacteremia. HISTORY OF PRESENT ILLNESS: A 68-year-old patient who has a history of alcoholism, chronic smoking and peripheral vascular disease with prior right BKA in 2013, who lives by himself in [place] and still has not abstained from his habit of drinking anywhere from 6-12 beers per day. He at this time was brought in by EMS after he was found with inability to get up from the ground, weakness and basically his ex- asked the police to go check on him and they activated EMS. The patient has had fever for the past 10 days approximately and a skin rash in the perineal area, upper thighs and gluteal region. The patient has incontinence of urine and that probably explains the areas of maceration described below. The patient was brought in. Initial findings included blood pressure 125/54, pulse 67, respirations 18, O2 sat 95% and his skin exam showed this area of maceration, which is better described below. His lungs were clear. Heart examination with regular rate without murmur. Abdomen is soft. Initial labs with a white cell count 12.3, hemoglobin 12.5, 35% bands , creatinine 1.9, AST 71, ALT 27. CK 2500. Chest x-ray without infiltrates. CT abdomen and pelvis with no major findings. There was moderate distention of the bladder though and we have 2 sets of blood cultures with Enterococcus faecalis and 1 out of 2 with methicillin-sensitive Staphylococcus aureus. Currently, Mr. Alexander is in bed. He is more alert. He knows he is in the hospital and knows his name. Recollection is somewhat faulty, but better than two days ago. He denies any headaches. No visual symptoms. No sore throat, odynophagia or dysphagia. No vomiting. Maybe some back pain. It is hard really to pin him down regarding this back pain. He states that this has been present since he was admitted and he has this pain mostly in the skin of the perineal area and gluteal region related to the maceration. PAST MEDICAL HISTORY: Includes chronic smoking, alcoholism, hypertension, peripheral vascular disease with prior right BKA and incarcerated hernia, which required inguinal repair. FAMILY HISTORY: Noncontributory. ALLERGIES: None. HOME MEDICATIONS: He was not taking any medication. CURRENT MEDICATIONS: Include Zosyn, nystatin, vancomycin, multivitamins, fluconazole and enoxaparin. PHYSICAL EXAMINATION: VITAL SIGNS: T-max 98.9, blood pressure 120/60, pulse 61, respirations 14-15, O2 saturation 99%. SKIN: Shows these areas of extensive maceration of the skin with erythema in the perineal area, gluteal region and groins. No ulceration noted. He has onychodystrophy in the left foot, very thickened nails and poor condition. No lymphadenopathy. HEENT: Ocular movements conjugate. Some conjunctival hyperemia. Nasal passages patent. Oral cavity with normal oral mucosa. NECK: Supple, no jugular vein distention, no carotid bruits. LUNGS: With symmetric air entry without crackles or wheezing. CARDIOVASCULAR: S1, S2, regular rate without murmurs. BACK: No back tenderness. Maybe in the lower back, there is mild to moderate tenderness. The patient has a right IJ triple lumen catheter. NEUROLOGIC: He is able to move extremities on command. Plantar responses are indifferent. He is awake, knows his name and knows that he is in the hospital. Could not tell me the date. LABORATORY DATA: Urinalysis with 0-3 WBCs. Trace protein. White cell count is down from 12.3-6.2, hemoglobin 10.8, platelets 266,000 and 67% neutrophils. Creatinine is down from 1.58 to 0.8, sodium 136, AST 71, ALT 27, CK was 2500, albumin 3.6, potassium 5.6 and now 3.6. Microbiology as noted above. There are some cultures from the skin in the perineal area with Pseudomonas, E. coli, gram negative jagruti and Enterococcus. There is no urine culture submitted. Imaging studies have been ordered, discussed above. ASSESSMENT: Alcoholism, peripheral vascular disease, chronic smoking, incontinence. Urine with possible urinary retention. Some element of back pain to be clarified further as soon as he is able to recall better his past recent history. Bacteremia with 2 different organisms with 2 out of 2 with Enterococcus faecalis and 1 out of 2 with methicillin sensitive Staph aureus without an obvious primary site except for the skin area. DISCUSSION: The differential diagnosis includes Enterococcus bacteremia from endocarditis versus urinary retention with upper tract infection without obvious cystitis as the most likely scenarios. We will have to wait to see if the second set turns positive for MSSA or will remain with 1 out of 2 only positive. The polymicrobial nature of his bacteremia would argue against endocarditis. Switch him to Rocephin and ampicillin. We will discontinue vancomycin and Zosyn. May need a RICHMOND to evaluate the valve. WES
--- NOTE | 2018-03-16 13:36 | PDOC.PN ---
- Subjective Encounter Start Date: 03/16/18 Encounter Start Time: 12:00 Doing better overall. Still has some pain with BM and cleaning up afterwards. - Objective Resuscitation Status: Resuscitation Status FULL:Full Resuscitation Vital Signs & Weight: Vital Signs (12 hours) Temp Pulse Resp BP Pulse Ox 03/16/18 11:51 98.8 F 58 L 15 139/64 99 03/16/18 08:08 98 03/16/18 07:30 98.9 F 61 14 125/56 L 98 03/16/18 04:00 98.9 F 67 18 132/63 99 Weight Admit Weight 175 lb Weight 190 lb 3.2 oz Most Recent Monitor Data Heart Rate from ECG 77 NIBP 127/60 NIBP BP-Mean 102 Respiration from ECG 15 SpO2 98 I&O: 03/15/18 03/16/18 03/17/18 06:59 06:59 06:59 Intake Total 1974 4766 Output Total 2040 2500 Balance -66 2266 Result Diagrams: 03/16/18 05:00 03/16/18 05:00 Additional Labs: Accuchecks 03/15/18 20:15 POC Glucose 105 Phys Exam - Physical Examination Constitutional: NAD Respiratory: no wheezing, no rales, no rhonchi, clear to auscultation bilateral Cardiovascular: RRR, no significant murmur, no rub Gastrointestinal: soft, non-tender, no distention, positive bowel sounds Musculoskeletal: no edema R BKA Neurological: non-focal Deviation from normal: Persistent cellulitic changes of the scrotal, groing, perineal and buttock -: areas. Dx/Plan (1) Septic shock Code(s): A41.9 - SEPSIS, UNSPECIFIED ORGANISM; R65.21 - SEVERE SEPSIS WITH SEPTIC SHOCK Status: Acute Comment: Apparently secondary to skin infection, but has Enterococcus in blood cultures. May be other source. (2) Sepsis affecting skin Code(s): A41.9 - SEPSIS, UNSPECIFIED ORGANISM Status: Acute Comment: Gram positive bacteremia. Secondary to skin infection of the groin/buttock area. Appreciate ID consult. Discussed with case with him. He has changed the abx appropriately. Continue with wound care. (3) Cellulitis and abscess of buttock Code(s): L02.31 - CUTANEOUS ABSCESS OF BUTTOCK; L03.317 - CELLULITIS OF BUTTOCK Status: Acute Comment: Secondary to incontinence. Continue abx, wound care , Reese catheter. (4) Acute renal failure Status: Acute Comment: Secondary to dehydration and sepsis. Improved with fluids. (5) PVD (peripheral vascular disease) Code(s): I73.9 - PERIPHERAL VASCULAR DISEASE, UNSPECIFIED Status: Acute (6) Incontinence of urine Code(s): R32 - UNSPECIFIED URINARY INCONTINENCE Status: Acute Comment: Consult Urology. May only be functional due to poor mobility and alcohol. (7) Hyperlipidemia Code(s): E78.5 - HYPERLIPIDEMIA, UNSPECIFIED Status: Acute (8) Hypertension Code(s): I10 - ESSENTIAL (PRIMARY) HYPERTENSION Status: Acute Comment: BP and renal function are normalized. Will resume his home ACEI. (9) Macrocytic anemia Code(s): D53.9 - NUTRITIONAL ANEMIA, UNSPECIFIED Status: Acute Comment: Secondary to EtOH. banana bag. (10) NSVT (nonsustained ventricular tachycardia) Code(s): I47.2 - VENTRICULAR TACHYCARDIA Status: Acute Comment: Had a brief run of NSVT in the ED, only witnessed by nurse. Brief and spontaneously resolved. Appreciate Cards consult. Needs stress testing prior to discharge. No major findings on echo. - Plan * May need empiric long-term treatment for the enterococcal bacteremia rather than the RICHMOND. He will be going to SNF/Rehab upon discharge and will be able to continue the abx without difficulty. He has central line now, but will go ahead and get the PICC. Can DC the central line once the PICC is in place. * Has a history of ethanol abuse. Reports he only drinks six beers per day now. No evidence of withdrawal. * Lives independently, but no really using the prosthesis. Does not believe he had adequate rehab. Continue therapy here. His ex- is his primary helper.
[2018-03-16] MEDS: Ampicillin 2 GM in Sodium Chloride 0.9% 100 ML IVPB SCH ×3 (14:28→20:51)
[2018-03-16] MEDS: cefTRIAXone\\ROCEPHIN 2 GM in Sodium Chloride 0.9% 100 ML IVPB SCH (14:29)
[2018-03-16] MEDS: Sodium Chloride 0.9% 1,000 ML IV SCH (14:41)
[2018-03-16] MEDS: Vancomycin HCl 1.5 GM in Sodium Chloride 0.9% 250 ML 300 ML IVPB SCH (14:42)
[2018-03-16] MEDS: Multivitamins, Adult 10 ML, Folic Acid 1 MG, Thiamine HCl 100 MG in Dextrose 5 %-0.45 %... IV SCH (17:23)
[2018-03-16] MEDS: traZODone HCl 50 MG TAB PO SCH (20:52)
[2018-03-16] MEDS: NACL ISO OSM IVPB SCH (20:54)
[2018-03-16] MEDS: FLUCONAZOLE IVPB SCH (20:54)
[2018-03-16] MEDS: ADMIXTURE FEE CHEMO IVPB SCH (20:54)
[2018-03-17] MEDS: Ampicillin 2 GM in Sodium Chloride 0.9% 100 ML IVPB SCH ×6 (01:05→21:25)
[2018-03-17 04:59] LABS: INR-International Normal Ratio 1.1
[2018-03-17] MEDS: traMADol HCl 50 MG TAB PO SCH ×2 (07:51→21:28)
[2018-03-17] MEDS: Famotidine/PF 20 mg/2ml Vial SLOW IVP SCH ×2 (07:51→21:25)
[2018-03-17] MEDS: Sodium Chloride 0.9% 1,000 ML IV SCH ×2 (07:55→15:10)
[2018-03-17] MEDS: Nystatin Cream 30 GM TUBE TOP SCH ×3 (07:57→21:29)
--- NOTE | 2018-03-17 08:46 | PRG ---
DATE OF SERVICE: 03/17/2018 The patient is complaining of diarrhea. He says his breathing is okay. PHYSICAL EXAMINATION: VITAL SIGNS: Temperature 98.3, pulse 60, respirations 18, O2 saturation 98%, blood pressure 156/74. HEENT: Unremarkable. NECK: No JVD. LUNGS: Clear. ABDOMEN: Soft, nontender to palpation. EXTREMITIES: Edematous. LABORATORY DATA: No new labs were done today. ASSESSMENT: 1. Cellulitis. 2. Diarrhea. 3. Polymicrobial sepsis. RECOMMENDATIONS: The patient is continuing antibiotics under the direction of Dr. Egan. The patien t mentioned having a MediPort installed, although I do see a consult or anything in the chart that di scusses that. His pulmonary status is stable. We have nothing further to offer the patient. Please consult if further assistance needed.
--- NOTE | 2018-03-17 14:46 | PDOC.PN ---
- Subjective Encounter Start Date: 03/17/18 Encounter Start Time: 11:45 Subjective: feels better, no sob - Objective Resuscitation Status: Resuscitation Status FULL:Full Resuscitation MAR Reviewed: Yes Vital Signs & Weight: Vital Signs (12 hours) Temp Pulse Resp BP Pulse Ox 03/17/18 11:20 98.3 F 53 L 19 157/74 H 97 03/17/18 07:43 98 03/17/18 07:07 98.3 F 52 L 18 156/74 H 98 03/17/18 04:00 98.3 F 53 L 16 157/69 H 99 Weight Admit Weight 175 lb Weight 190 lb 3.2 oz Most Recent Monitor Data Heart Rate from ECG 77 NIBP 127/60 NIBP BP-Mean 102 Respiration from ECG 15 SpO2 98 I&O: 03/16/18 03/17/18 03/18/18 06:59 06:59 06:59 Intake Total 4766 2000 Output Total 2500 2300 Balance 2266 -300 Result Diagrams: 03/16/18 05:00 03/16/18 05:00 Phys Exam - Physical Examination HEENT: PERRLA, moist MMs Neck: no JVD, supple Respiratory: no wheezing, no rales Cardiovascular: RRR, no significant murmur Gastrointestinal: soft, non-tender, positive bowel sounds Musculoskeletal: no edema, pulses present Neurological: non-focal, moves all 4 limbs right bka Psychiatric: normal affect, A&O x 3 Dx/Plan (1) Sepsis Code(s): A41.9 - SEPSIS, UNSPECIFIED ORGANISM Status: Acute Qualifiers: Sepsis type: methicillin susceptible Staphylococcus aureus Qualified Code(s ): A41.01 - Sepsis due to Methicillin susceptible Staphylococcus aureus Comment: and enterococcus (2) Bacteremia Code(s): R78.81 - BACTEREMIA Status: Acute Comment: sec to enterococcus and MSSA (3) Incontinence of urine Code(s): R32 - UNSPECIFIED URINARY INCONTINENCE Status: Acute (4) GRIS (acute kidney injury) Code(s): N17.9 - ACUTE KIDNEY FAILURE, UNSPECIFIED Status: Resolved (5) Alcohol withdrawal Code(s): F10.239 - ALCOHOL DEPENDENCE WITH WITHDRAWAL, UNSPECIFIED Status: Acute Qualifiers: Complication of substance-induced condition: with delirium Qualified Code(s ): F10.231 - Alcohol dependence with withdrawal delirium Comment: resolved (6) Hyperlipidemia Code(s): E78.5 - HYPERLIPIDEMIA, UNSPECIFIED Status: Chronic Qualifiers: Hyperlipidemia type: unspecified Qualified Code(s): E78.5 - Hyperlipidemia , unspecified (7) Hypertension Code(s): I10 - ESSENTIAL (PRIMARY) HYPERTENSION Status: Chronic Qualifiers: Hypertension type: essential hypertension Qualified Code(s): I10 - Essential (primary) hypertension (8) PVD (peripheral vascular disease) Code(s): I73.9 - PERIPHERAL VASCULAR DISEASE, UNSPECIFIED Status: Chronic - Plan is on rocephin and ampicillin -: diflucan for groin fungal infection -: will need rehab or swing bed -: has beckford, may dc or ?condom catheter -: unclear source of bacteremia * . Review of Systems - Medications/Allergies Allergies/Adverse Reactions: Allergies Allergy/AdvReac Type Severity Reaction Status Date / Time No Known Allergies Allergy Verified 03/14/18 20:53 Medications: Current Medications Acetaminophen (Tylenol) 650 mg PO Q4H PRN PRN Reason: Headache/Fever or Pain Last Admin: 03/15/18 12:48 Dose: 650 mg Enoxaparin Sodium (Lovenox) 40 mg SC 0900 [facility] Last Admin: 03/16/18 09:03 Dose: 40 mg Famotidine (Pepcid) 20 mg SLOW IVP Q12HR [facility] Last Admin: 03/17/18 07:51 Dose: 20 mg Multivitamins 10 ml/ Folic Acid 1 mg/ Thiamine HCl 100 mg / Dextrose/Sodium Chloride 1,011.2 mls @ 50 mls/hr IV 1800 [facility] Last Admin: 03/16/18 17:23 Dose: 1,011.2 mls Fluconazole/Sodium Chloride 200 mg/ Miscellaneous Medication 1 units/ Device 100 mls @ 100 mls/hr IVPB 2100 [facility] Last Admin: 03/16/18 20:54 Dose: 100 mls Sodium Chloride (Normal Saline 0.9%) 1,000 mls @ 75 mls/hr IV .[id number] [facility] Last Admin: 03/17/18 07:55 Dose: Not Given Ampicillin Sodium 2 gm/ Sodium (Chloride) 100 mls @ 200 mls/hr IVPB Q4HR [facility] Last Admin: 03/17/18 09:13 Dose: 100 mls Ceftriaxone Sodium 2 gm/ (Sodium Chloride) 100 mls @ 200 mls/hr IVPB Q24HR [facility] Last Admin: 03/16/18 14:29 Dose: 100 mls Nystatin (Mycostatin Cream) 0 gm TOP TID [facility] Last Admin: 03/17/18 07:57 Dose: 30 gm Tramadol HCl (Ultram) 50 mg PO BIDPRN PRN PRN Reason: Moderate Pain (4-6) Last Admin: 03/15/18 13:54 Dose: 50 mg Tramadol HCl (Ultram) 50 mg PO BID [facility] Last Admin: 03/17/18 07:51 Dose: 50 mg Trazodone HCl (Desyrel) 100 mg PO HS [facility] Last Admin: 03/16/18 20:52 Dose: 100 mg
[2018-03-17] MEDS: Enoxaparin Sodium 40 MG/0.4 ML SYRINGE SC SCH (15:08)
--- NOTE | 2018-03-17 15:19 | SPC ---
SONOGRAPHIC GUIDED LEFT UPPER EXTREMITY PICC PLACEMENT: HISTORY: Infectious colitis. FINDINGS: After explaining the procedure and answering all questions, left upper extremity was prepped and drap ed in the usual sterile fashion. Sterile technique, buffered local anesthesia, sonographic guidance, and a 22-gauge needle were used to carefully access the left brachial vein. Standard technique was then used to place the tip of a 5 [place]ik dual-lumen PICC so that the tip lies at the level of the sup erior vena cava. Catheter was flushed and secured externally. The patient tolerated the procedure w ell and was returned in unchanged condition. IMPRESSION: Left upper extremity PICC is ready for use. POS: [facility]
[2018-03-17] MEDS: cefTRIAXone\\ROCEPHIN 2 GM in Sodium Chloride 0.9% 100 ML IVPB SCH (15:48)
[2018-03-17] MEDS: Multivitamins, Adult 10 ML, Folic Acid 1 MG, Thiamine HCl 100 MG in Dextrose 5 %-0.45 %... IV SCH (16:55)
[2018-03-17] MEDS: ADMIXTURE FEE CHEMO IVPB SCH (21:24)
[2018-03-17] MEDS: FLUCONAZOLE IVPB SCH (21:24)
[2018-03-17] MEDS: NACL ISO OSM IVPB SCH (21:24)
[2018-03-17] MEDS: traZODone HCl 50 MG TAB PO SCH (21:28)
[2018-03-18] MEDS: Ampicillin 2 GM in Sodium Chloride 0.9% 100 ML IVPB SCH ×6 (02:02→19:53)
[2018-03-18] MEDS: traMADol HCl 50 MG TAB PO SCH ×2 (08:12→19:51)
[2018-03-18] MEDS: Sodium Chloride 0.9% 1,000 ML IV SCH ×2 (08:13→11:34)
[2018-03-18] MEDS: Famotidine/PF 20 mg/2ml Vial SLOW IVP SCH ×2 (08:13→19:51)
[2018-03-18] MEDS: Enoxaparin Sodium 40 MG/0.4 ML SYRINGE SC SCH (08:13)
[2018-03-18] MEDS: Vancomycin HCl 25 MG/ML Oral PO SCH ×4 (09:36→22:02)
[2018-03-18] MEDS: Nystatin Cream 30 GM TUBE TOP SCH ×3 (09:38→19:53)
[2018-03-18] MEDS: cefTRIAXone\\ROCEPHIN 2 GM in Sodium Chloride 0.9% 100 ML IVPB SCH (11:31)
--- NOTE | 2018-03-18 13:24 | EKG ---
Test Reason : Blood Pressure : / mmHG Vent. Rate : 052 BPM Atrial Rate : 052 BPM P-R Int : 202 ms QRS Dur : 078 ms QT Int : 408 ms P-R-T Axes : 073 -14 075 degrees QTc Int : 379 ms Sinus bradycardia with sinus arrhythmia with Premature ventricular complexes or Fusion complexes Confirmed by ROCHELLE LEIVA ([id number]), news videotape editor CECY ALEJANDRO ([id number]) on 03/18/2018 1:24:41 PM Referred By: Confirmed By:ROCHELLE LEIVA
--- NOTE | 2018-03-18 13:46 | PDOC.PN ---
- Subjective Encounter Start Date: 03/18/18 Encounter Start Time: 11:15 Subjective: diarrhea is better from last night, has some formed stool in between -: no nausea -: eating well - Objective Resuscitation Status: Resuscitation Status FULL:Full Resuscitation MAR Reviewed: Yes Vital Signs & Weight: Vital Signs (12 hours) Temp Pulse Resp BP Pulse Ox 03/18/18 08:05 98 03/18/18 07:43 98.5 F 59 L 20 169/75 H 98 Weight Admit Weight 175 lb Weight 190 lb 3.2 oz Most Recent Monitor Data Heart Rate from ECG 77 NIBP 127/60 NIBP BP-Mean 102 Respiration from ECG 15 SpO2 98 I&O: 03/17/18 03/18/18 03/19/18 06:59 06:59 06:59 Intake Total 19994 Output Total 2300 1400 Balance -300 894 Result Diagrams: 03/16/18 05:00 03/16/18 05:00 Phys Exam - Physical Examination HEENT: PERRLA, moist MMs Neck: no JVD, supple Respiratory: no wheezing, no rales Cardiovascular: RRR, no significant murmur Gastrointestinal: soft, non-tender, positive bowel sounds Musculoskeletal: no edema, pulses present Neurological: non-focal, moves all 4 limbs right bka Psychiatric: normal affect, A&O x 3 Dx/Plan (1) Sepsis Code(s): A41.9 - SEPSIS, UNSPECIFIED ORGANISM Status: Acute Qualifiers: Sepsis type: methicillin susceptible Staphylococcus aureus Qualified Code(s ): A41.01 - Sepsis due to Methicillin susceptible Staphylococcus aureus Comment: and enterococcus (2) Bacteremia Code(s): R78.81 - BACTEREMIA Status: Acute Comment: sec to enterococcus and MSSA (3) Incontinence of urine Code(s): R32 - UNSPECIFIED URINARY INCONTINENCE Status: Acute (4) GRIS (acute kidney injury) Code(s): N17.9 - ACUTE KIDNEY FAILURE, UNSPECIFIED Status: Resolved (5) Alcohol withdrawal Code(s): F10.239 - ALCOHOL DEPENDENCE WITH WITHDRAWAL, UNSPECIFIED Status: Acute Qualifiers: Complication of substance-induced condition: with delirium Qualified Code(s ): F10.231 - Alcohol dependence with withdrawal delirium Comment: resolved (6) Hyperlipidemia Code(s): E78.5 - HYPERLIPIDEMIA, UNSPECIFIED Status: Chronic Qualifiers: Hyperlipidemia type: unspecified Qualified Code(s): E78.5 - Hyperlipidemia , unspecified (7) Hypertension Code(s): I10 - ESSENTIAL (PRIMARY) HYPERTENSION Status: Chronic Qualifiers: Hypertension type: essential hypertension Qualified Code(s): I10 - Essential (primary) hypertension (8) PVD (peripheral vascular disease) Code(s): I73.9 - PERIPHERAL VASCULAR DISEASE, UNSPECIFIED Status: Chronic - Plan is on ampicillin q4h and ceftriaxone -: oral vanc for c.diff, diflucan -: iv hydration until diarrhea resolves -: to mobilize with his prosthesis as tolerated -: awaiting placement ?[place] per patient * . Review of Systems - Medications/Allergies Allergies/Adverse Reactions: Allergies Allergy/AdvReac Type Severity Reaction Status Date / Time No Known Allergies Allergy Verified 03/14/18 20:53 Medications: Current Medications Acetaminophen (Tylenol) 650 mg PO Q4H PRN PRN Reason: Headache/Fever or Pain Last Admin: 03/15/18 12:48 Dose: 650 mg Enoxaparin Sodium (Lovenox) 40 mg SC 0900 [facility] Last Admin: 03/18/18 08:13 Dose: 40 mg Famotidine (Pepcid) 20 mg SLOW IVP Q12HR [facility] Last Admin: 03/18/18 08:13 Dose: 20 mg Multivitamins 10 ml/ Folic Acid 1 mg/ Thiamine HCl 100 mg / Dextrose/Sodium Chloride 1,011.2 mls @ 50 mls/hr IV 1800 [facility] Last Admin: 03/17/18 16:55 Dose: 1,011.2 mls Fluconazole/Sodium Chloride 200 mg/ Miscellaneous Medication 1 units/ Device 100 mls @ 100 mls/hr IVPB 2100 [facility] Last Admin: 03/17/18 21:24 Dose: 100 mls Sodium Chloride (Normal Saline 0.9%) 1,000 mls @ 75 mls/hr IV .[id number] [facility] Last Admin: 03/18/18 11:34 Dose: 1,000 mls Ampicillin Sodium 2 gm/ Sodium (Chloride) 100 mls @ 200 mls/hr IVPB Q4HR [facility] Last Admin: 03/18/18 12:41 Dose: 100 mls Ceftriaxone Sodium 2 gm/ (Sodium Chloride) 100 mls @ 200 mls/hr IVPB Q24HR [facility] Last Admin: 03/18/18 11:31 Dose: 100 mls Nystatin (Mycostatin Cream) 0 gm TOP TID [facility] Last Admin: 03/18/18 09:38 Dose: 30 gm Tramadol HCl (Ultram) 50 mg PO BIDPRN PRN PRN Reason: Moderate Pain (4-6) Last Admin: 03/15/18 13:54 Dose: 50 mg Tramadol HCl (Ultram) 50 mg PO BID [facility] Last Admin: 03/18/18 08:12 Dose: 50 mg Trazodone HCl (Desyrel) 100 mg PO HS [facility] Last Admin: 03/17/18 21:28 Dose: 100 mg Vancomycin HCl (First Vancomycin) 125 mg PO QID [facility] Last Admin: 03/18/18 13:08 Dose: 125 mg
[2018-03-18] MEDS: Multivitamins, Adult 10 ML, Folic Acid 1 MG, Thiamine HCl 100 MG in Dextrose 5 %-0.45 %... IV SCH (18:25)
[2018-03-18] MEDS: traZODone HCl 50 MG TAB PO SCH (19:51)
[2018-03-18] MEDS: ADMIXTURE FEE CHEMO IVPB SCH (22:02)
[2018-03-18] MEDS: FLUCONAZOLE IVPB SCH (22:02)
[2018-03-18] MEDS: NACL ISO OSM IVPB SCH (22:02)
[2018-03-19] MEDS: Ampicillin 2 GM in Sodium Chloride 0.9% 100 ML IVPB SCH ×4 (00:49→12:59)
[2018-03-19] MEDS: Vancomycin HCl 25 MG/ML Oral PO SCH ×2 (09:02→12:59)
[2018-03-19] MEDS: Famotidine/PF 20 mg/2ml Vial SLOW IVP SCH (09:03)
[2018-03-19] MEDS: traMADol HCl 50 MG TAB PO SCH (09:03)
[2018-03-19] MEDS: Enoxaparin Sodium 40 MG/0.4 ML SYRINGE SC SCH (09:03)
[2018-03-19] MEDS: Sodium Chloride 0.9% 1,000 ML IV SCH (09:04)
[2018-03-19] MEDS: Nystatin Cream 30 GM TUBE TOP SCH (09:12)
[2018-03-19] MEDS: cefTRIAXone\\ROCEPHIN 2 GM in Sodium Chloride 0.9% 100 ML IVPB SCH (12:14)
--- NOTE | 2018-03-19 13:03 | PDOC.PN ---
- Subjective Encounter Start Date: 03/19/18 Encounter Start Time: 09:35 Subjective: feels better, had 2 bm's over last 20hrs -: wants to go to [facility] - Objective Resuscitation Status: Resuscitation Status FULL:Full Resuscitation MAR Reviewed: Yes Vital Signs & Weight: Vital Signs (12 hours) Temp Pulse Resp BP BP Pulse Ox 03/19/18 11:56 98.0 F 59 L 18 157/76 H 97 03/19/18 09:00 97 03/19/18 07:31 97.8 F 56 L 18 152/70 H 97 03/19/18 04:00 98.0 F 62 16 176/92 H Weight Admit Weight 175 lb Weight 190 lb 3.2 oz Most Recent Monitor Data Heart Rate from ECG 77 NIBP 127/60 NIBP BP-Mean 102 Respiration from ECG 15 SpO2 98 I&O: 03/18/18 03/19/18 03/20/18 06:59 06:59 06:59 Intake Total 2294 3690 Output Total 1400 2450 Balance 894 1240 Result Diagrams: 03/16/18 05:00 03/16/18 05:00 Phys Exam - Physical Examination HEENT: PERRLA, moist MMs Neck: no JVD, supple Respiratory: no wheezing, no rales Cardiovascular: RRR, no significant murmur Gastrointestinal: soft, non-tender, positive bowel sounds Musculoskeletal: no edema, pulses present Neurological: non-focal, moves all 4 limbs Psychiatric: normal affect, A&O x 3 Dx/Plan (1) Sepsis Code(s): A41.9 - SEPSIS, UNSPECIFIED ORGANISM Status: Acute Qualifiers: Sepsis type: methicillin susceptible Staphylococcus aureus Qualified Code(s ): A41.01 - Sepsis due to Methicillin susceptible Staphylococcus aureus Comment: and enterococcus (2) Bacteremia Code(s): R78.81 - BACTEREMIA Status: Acute Comment: sec to enterococcus and MSSA (3) Incontinence of urine Code(s): R32 - UNSPECIFIED URINARY INCONTINENCE Status: Acute (4) GRIS (acute kidney injury) Code(s): N17.9 - ACUTE KIDNEY FAILURE, UNSPECIFIED Status: Resolved (5) Alcohol withdrawal Code(s): F10.239 - ALCOHOL DEPENDENCE WITH WITHDRAWAL, UNSPECIFIED Status: Acute Qualifiers: Complication of substance-induced condition: with delirium Qualified Code(s ): F10.231 - Alcohol dependence with withdrawal delirium Comment: resolved (6) Hyperlipidemia Code(s): E78.5 - HYPERLIPIDEMIA, UNSPECIFIED Status: Chronic Qualifiers: Hyperlipidemia type: unspecified Qualified Code(s): E78.5 - Hyperlipidemia , unspecified (7) Hypertension Code(s): I10 - ESSENTIAL (PRIMARY) HYPERTENSION Status: Chronic Qualifiers: Hypertension type: essential hypertension Qualified Code(s): I10 - Essential (primary) hypertension (8) PVD (peripheral vascular disease) Code(s): I73.9 - PERIPHERAL VASCULAR DISEASE, UNSPECIFIED Status: Chronic (9) C. difficile colitis Status: Acute - Plan is on vanc oral, iv amp and ceftriaxone -: will need outpt [place] in 2 weeks -: pt wants to go to [facility], if accepted may dc -: duration of antibiotics is total of 4 weeks/will confirm with -: will need oral vanc until iv antibiotics are on * .
[2018-03-19 13:40] VITALS: BP 169/82; TEMP 98.2
--- NOTE | 2018-03-19 14:08 | PRG ---
DATE OF SERVICE: 03/19/2018 SUBJECTIVE: The patient is feeling better, being transferred to rehabilitation. No headaches. No s hortness of breath or abdominal pain. The skin eruption in the intertriginous areas of the groin and back is improving. OBJECTIVE: VITAL SIGNS: Normal except for elevation of systolic blood pressure. SKIN: Again, intertrigo improving significantly in the groin and gluteal areas. LUNGS: Clear. HEART: S1, S2, regular rate. ABDOMEN: Soft, not distended. LABORATORY DATA: White cell count 6.2, hemoglobin 10.8, platelets 266. Sodium 136, creatinine 0.88. Urinalysis with 0-3 wbc's. Microbiology with Enterococcus faecalis 2 out of 2 sets, Viridans strep and Staph aureus. The cultures from the eruption in the intertriginous areas include Pseudomonas, E . coli, gram negative jagruti and Enterococcus species. ASSESSMENT AND DISCUSSION: Alcoholism, peripheral vascular disease, chronic smoking, incontinence wi th intertriginous eruption, bacteremia likely from the skin changes, polymicrobial. Endocarditis is less likely. The patient to be discharged on oral antimicrobials. We will continue IV in the rehab area where he is going to receive rehabilitation for the next 2 weeks approximately.
--- NOTE | 2018-03-20 15:10 | DIS ---
DATE OF ADMISSION: 03/14/2018 DATE OF DISCHARGE: 03/19/2018 DISCHARGE DISPOSITION: To [facility]. PRIMARY DISCHARGE DIAGNOSES: Sepsis, Enterococcus and MSSA bacteremia, acute kidney injury, Clostrid ium difficile colitis. SECONDARY DISCHARGE DIAGNOSES: Alcohol abuse with withdrawal and delirium, resolved; dyslipidemia; h ypertension; peripheral vascular disease. PROCEDURES DONE DURING HOSPITALIZATION: CT of the abdomen and pelvis with contrast done showed no ac donny abnormality. CT brain was unremarkable. Chest x-ray, no acute cardiopulmonary process. Echo wi th 2D Doppler showed EF of 60%-65%, no obvious thrombus or vegetation seen. Blood cultures 2/2 grew Strep viridans and Enterococcus faecalis, Staph aureus was sensitive to all antibiotics except Zosyn. Enterococcus was resistant to erythromycin, but sensitive to all other antibiotics. Stool for Clos tridium difficile was positive. Discharge white count of 6, H&H 10 and 32, platelet count 266. Disc harge BUN is 13.8 and 0.8. Admitting BUN and creatinine were 40 and 1.9. INPATIENT CONSULTS: Dr. Egan for Infectious Disease; Dr. Webb for Critical Care, Dr. Velazco for Ca rdiology. DISCHARGE PLAN: The patient to follow up with primary care physician in 1 week. DISCHARGE MEDICATIONS: Ampicillin 2 grams IV 4 times daily until March 30, 2018, ceftriaxone 2 gram s daily until March 30, 2018. Fluconazole 100 mg p.o. daily for another 9 days, vancomycin 125 mg p .o. 4 times daily until March 30, 2018, then taper every 5 days and discontinue. Propranolol 10 mg twice daily, Ultram p.r.n. for pain, trazodone 100 mg p.o. at bedtime, lisinopril 20 mg daily, gemfib rozil 600 mg p.o. twice daily, gabapentin 900 mg p.o. at bedtime. ALLERGIES: No known drug allergies. BRIEF COURSE DURING HOSPITALIZATION: The patient initially got admitted on the with complaints of fever. Had a temperature of 100.6 in the ER and was essentially admitted for sepsis. He also had significant maceration of skin around the around perineal area. He is on vancomycin and Zosyn. His cultures grew Enterococcus and Staph MSSA bacteremia, 2/[address] Egan was consulted for Infectious Disease. The patient initially was in IMCU and later downgraded to medical floor. He de guzman s had multiple workups done for bacteremia. Likely source for this is a lower perineal skin area. T he patient had delirium due to alcohol withdrawal and this has resolved prior to discharge. He is fu lly oriented and eating well prior to discharge. The patient has issues with his prosthesis and will need to see his orthotic specialist after 4-6 weeks to get the right sizing that on his right lower extremity. He has remained hemodynamically stable. The patient developed diarrhea and his stool was positive for C. diff. He was placed on vancomycin. Per Dr. Egan' advice, the patient needs to con tinue ampicillin and ceftriaxone until March 30, 2018. He also needs to continue fluconazole for an other 9 days. He is on oral vancomycin 4 times a day until needs to continue this until March 30 018 and taper the frequency every 5 days and to discontinue. His transthoracic echo has not revealed any vegetation or thrombus. Due to polymicrobial bacteria, Dr. Egan as advised not to pursue trans esophageal echo for the same. A total of 35 minutes was spent on discharge plan. We will try to upd ate Dr. Beltrán regarding the duration of antibiotics shortly. Please see a [id number] documentat ion on [facility] for the day of discharge.
== END 2018-03-19 14:52 | DRG 871 ==
LOC: ERS 11:23 → CCU 16:51 → IMCU/EMU 03-15 11:37 → T4-A 03-16 18:52
PROVIDERS: ADMIT Internal Medicine; ATTEND Internal Medicine
DX: A41.89 Other specified sepsis (principal); R65.21 Severe sepsis with septic shock; L02.31 Cutaneous abscess of buttock; N17.9 Acute kidney failure, unspecified; M62.82 Rhabdomyolysis; E87.0 Hyperosmolality and hypernatremia; F10.239 Alcohol dependence with withdrawal, unspecified; A04.72 Enterocolitis due to Clostridium difficile, not specified as recurrent; E78.1 Pure hyperglyceridemia; L30.9 Dermatitis, unspecified; I10 Essential (primary) hypertension; I73.9 Peripheral vascular disease, unspecified; E78.5 Hyperlipidemia, unspecified; Z89.511 Acquired absence of right leg below knee; E87.5 Hyperkalemia; R33.9 Retention of urine, unspecified; F17.210 Nicotine dependence, cigarettes, uncomplicated; Z79.899 Other long term (current) drug therapy; R32 Unspecified urinary incontinence
CPT/HCPCS: 36415; 36416; 36556; 36569; 70450; 71045; 74177; 80048; 80053; 80202; 80307; 81003; 81015; 82550; 82553; 83605; 83630; 84484; 85025; 85610; 87040; 87070; 87077; 87149; 87186; 87205; 87324; 87449; 87493; 93005; 93306; 96360; 96361; 96365; 96366; 96367; C1751; G8978-GP-CM; G8979-GP-CK; G8987-GO-CK; G8988-GO-CI; J0282; J0290; J0696; J1450; J1644; J1650; J2543; J3370; J3411; J7042; J7050; J7070; S0028

== ENCOUNTER 2018-06-03 13:00 | Inpatient (IN) | payer MEDICARE ==
[2018-06-03 13:47] LABS: #Basophils 0.1 thou/uL (0.0-0.2); #Eosinphils 0.1 thou/uL (0.0-0.7); #Lymphocytes 1.9 thou/uL (1.20-3.40); #Monocytes 0.9 thou/uL (0.11-0.59); #Neutrophils 6.2 thou/uL (1.40-6.50); %Basophils 0.9 % (0.0-1.0); %Eosinophils 1.4 % (0.0-10.0); %Lymphocytes 20.5 % (21.0-51.0); %Monocytes 9.6 % (0.0-10.0); %Neutrophils 67.7 % (42.0-75.0); Hemoglobin 15.6 g/dL (14.0-18.0); Mean Corpuscular HGB CONC 33.2 g/dL (32.0-36.0); Mean Corpuscular Hemoglobin 33.5 pg (27.0-31.0); Mean Platelet Volume 8.9 fL (7.4-10.4); Platelet Count 243 thou/uL (130-400); RBC Distribution Width 13.3 % (11.5-14.5); Red Blood Cell (RBC) Count 4.65 mill/uL (4.70-6.10); White Blood Cell (WBC) Count 9.2 thou/uL (4.8-10.8)
[2018-06-03] MEDS ORDERED: Atropine Sulfate 1 mg/10 ml Syringe ONE (13:48)
[2018-06-03 14:12] LABS: ALT (SGPT) 14 U/L (8-55); AST (SGOT) 34 U/L (5-34); Albumin 4.2 g/dL (3.4-4.8); Alcohol 284 mg/dL (Less than 10); Alkaline Phosphatase 68 U/L (40-150); Anion Gap 20 mmol/L (10-20); BUN (Urea Nitrogen) 22 mg/dL (8.4-25.7); Bilirubin, Total 0.2 mg/dL (0.2-1.2); Calc. Creatinine Clearance 0 mL/min (70-130); Carbon Dioxide 15 mmol/L (23-31); Chloride 99 mmol/L (98-107); Estimated GFR-MDRD 48; Globulin 4.3 g/dL (2.4-3.5); Glucose 90 mg/dL (80-115); Protein, Total 8.5 g/dL (5.8-8.1); Sodium 129 mmol/L (136-145)
--- NOTE | 2018-06-03 14:17 | RAD ---
RIGHT KNEE RADIOGRAPHS 2 VIEWS: DATE: 06/03/2018. PROVIDED CLINICAL HISTORY: Pain. FINDINGS: Changes of below knee amputation are demonstrated. There is no evidence for a fracture or other acut e osseous abnormality. The patella is not well visualized on the lateral view due to radiographic ex posure. Vascular calcifications are seen. The soft tissues appear otherwise radiographically unrema rkable. IMPRESSION: No evidence for an acute osseous abnormality with limitations as above. POS: [facility]
--- NOTE | 2018-06-03 14:18 | RAD ---
PORTABLE CHEST: DATE: 06/03/2018. PROVIDED CLINICAL HISTORY: Fall. FINDINGS: Comparison 03/14/2018. Cardiac silhouette appears enlarged which may be at least partially on the basis of portable techniqu e. No focal consolidation, pleural fluid, or pneumothorax apparent. IMPRESSION: No evidence for an acute cardiopulmonary process. POS: [facility]
[2018-06-03] MEDS ORDERED: Piperacillin/Tazobactam 4.5 GM VIAL ONE (14:57)
--- NOTE | 2018-06-03 15:23 | PDOC.FPRHP ---
- History of Present Illness Chief Complaint: fall History of Present Illness: This is a 68 yo M here for evaluation s/p fall. Patient complaining of right ankle pain after fall. Patient states that he tripped and fell. Patient felt dizzy after the fall, but not prior. 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 Patient denies dizzines, SOB, chest pain, palpitations, lightheadedness, fever/ chills, NVD. - Allergies/Adverse Reactions Allergies Allergy/AdvReac Type Severity Reaction Status Date / Time No Known Allergies Allergy Verified 03/14/18 20:53 - Home Medications Medication Instructions Recorded Confirmed Type Docusate Sodium 100 mg PO PRN PRN 03/15/18 03/15/18 History Gabapentin 900 mg PO HS 03/15/18 03/15/18 History Gemfibrozil 600 mg PO BID-AC 03/15/18 03/15/18 History Lisinopril 20 mg PO DAILY 03/15/18 03/15/18 History Propranolol HCl 10 mg PO BID 03/15/18 03/15/18 History traMADol HCl [Tramadol HCl] 50 mg PO BID PRN 03/15/18 03/15/18 History traZODone HCl [Trazodone HCl] 100 mg PO HS 03/15/18 03/15/18 History Ampicillin [AMPicillin] 2 gm IVPB Q4HR 26 Days vial 03/19/18 Rx Fluconazole 100 mg PO DAILY #10 tablet 03/19/18 Rx Vancomycin HCl [First Vancomycin] 125 mg PO QID 26 Days ml 03/19/18 Rx cefTRIAXone\ROCEPHIN [Rocephin] 2 gm IVPB Q24HR #26 vial 03/19/18 Rx - History PMHx: PVD, hypertriglyceridemia, HTN PSHx: right BKA, hernia repair FHx: non contributory Social: 6pack-1case beer/day, current smoker >20years, occasional marijuana use ; denies other illicit drugs - Review of Systems General: denies: fever/chills, weight/appetite/sleep changes, night sweats ENT: denies: nasal congestion, rhinorrhea Respiratory: denies: cough, congestion, shortness of breath Cardiovascular: denies: chest pain, palpitation, edema Gastrointestinal: denies: nausea, vomiting, diarrhea, constipation, abdominal pain Musculoskeletal: reports: pain (left ankle) - Vital signs BP: 96/47 HR: 88 RR: 15 Tmax: 98.5 Pox: 95% on RA Wt: 82kg - Physical Exam Constitutional: NAD, awake, alert and oriented, well developed HEENT: normocephalic and atraumatic, PERRLA, EOMI, grossly normal vision, grossly normal hearing -HEENT: poor dentition Neck: supple, FROM, no JVD Chest: no-tender to palpation, no lesions Heart: RRR, normal S1/S2, no murmurs/rubs/gallops Lungs: CTAB Abdomen: soft, non-tender, bowel sounds present, no masses/distention Musculoskeletal: normal structure, normal tone -Musculoskeletal: right knee below knee amputation Neurological: no focal deficit Skin: no rash/lesions Psychiatric: normal mood and affect FMR H&P: Results - Labs Result Diagrams: 06/04/18 04:47 06/04/18 04:47 Lab results: WBC 9.2 thou/uL (4.8-10.8) 06/03/18 13:37 Hgb 15.6 g/dL (14.0-18.0) 06/03/18 13:37 Hct 46.9 % (42.0-52.0) 06/03/18 13:37 MCV 101.0 fL (78.0-98.0) H 06/03/18 13:37 Plt Count 243 thou/uL (130-400) 06/03/18 13:37 Neutrophils % 67.7 % (42.0-75.0) 06/03/18 13:37 Sodium 129 mmol/L (136-145) L 06/03/18 13:37 Potassium 5.0 mmol/L (3.5-5.1) 06/03/18 13:37 Chloride 99 mmol/L (98-107) 06/03/18 13:37 Carbon Dioxide 15 mmol/L (23-31) L 06/03/18 13:37 BUN 22 mg/dL (8.4-25.7) 06/03/18 13:37 Creatinine 1.47 mg/dL (0.7-1.3) H 06/03/18 13:37 Glucose 90 mg/dL (80-115) 06/03/18 13:37 Lactic Acid 3.5 mmol/L (0.5-2.2) H 06/03/18 13:37 Calcium 10.0 mg/dL (7.8-10.44) 06/03/18 13:37 Total Bilirubin 0.2 mg/dL (0.2-1.2) 06/03/18 13:37 AST 34 U/L (5-34) 06/03/18 13:37 ALT 14 U/L (8-55) 06/03/18 13:37 Alkaline Phosphatase 68 U/L (40-150) 06/03/18 13:37 Serum Total Protein 8.5 g/dL (5.8-8.1) H 06/03/18 13:37 Albumin 4.2 g/dL (3.4-4.8) 06/03/18 13:37 - Radiology Interpretation Other Status: report reviewed by me (right knee radiograph: neg for any acute abnormality) FMR H&P: A/P - Problem List (1) Hyperlipidemia Current Visit: No Status: Chronic Code(s): E78.5 - HYPERLIPIDEMIA, UNSPECIFIED Qualifiers: Hyperlipidemia type: unspecified Qualified Code(s): E78.5 - Hyperlipidemia , unspecified (2) PVD (peripheral vascular disease) Current Visit: No Status: Chronic Code(s): I73.9 - PERIPHERAL VASCULAR DISEASE, UNSPECIFIED (3) GRIS (acute kidney injury) Current Visit: No Status: Resolved Code(s): N17.9 - ACUTE KIDNEY FAILURE, UNSPECIFIED - Plan Symptomatic Bradycardia - HR 30s initially w/ junctional rhythym, given atropin in ED, HR currently 50- 70 - patient responded to 3L IVF in ED, will continue to mIVF - Increasd Lactic acid - possibly due to lee/hypotension; patient given vanc/ zosyn in ED -> will not continue at this time - Trop neg - TSH pending GRIS - Cr 1.47, elevated from baseline - WIll continue to monitor w/ AM CMP - mIVF Alcohol Abuse - Alcohol level 285 - Will continue to monitor - ASE protocol initiated - if here > 24 hours consider starting prophylactic benzo or beer with meals Hypertriglyceridemia - aware, will continue home meds HTN - Home meds Hyponatremia - Likely 2/2 beer potomania - Fluids and continue to monitor Elevated lactic acid - No suspicion for infection at this time - Will repeat and trend, possibly hypoperfusion from bradycardia/dehydration DISP: admit to tele, obs CODE: FULL vte ppx: heparin Case discussed with Dr. Dhillon FMR H&P: Upper Level - Pertinent history 68 yo M who presents after fall at home. He was walking out of his bathroom, tripped and fell. He was asymptomatic prior to that but felt dizzy afterwards. Denies hitting his head. His only complaint is L ankle pain after the fall. - Pertinent findings Gen: awake, alert, oriented HEENT: atraumatic, normocephalic CV: heart sounds distant RESP: CTAB ABD: nondistended, nontender EXT: R BKA, LLE with mild erythema over L knee SKIN: few scattered excoriations - Plan Date/Time: 06/03/18 1520 68 yo M with PMHx HTN, PVD and alcohol abuse presents after fall at home, concerning for symptomatic bradycardia 1. Symptomatic bradycardia - HR down to 30s with junctional rhythm in ED - s/p atropine - Will Obs on tele - Trops if any chest pain - TSH 2. Alcohol abuse - ASE protocol - Drinks 1 case per day, if here > 24 hours consider starting prophylactic benzo or beer with meals 3. HTN - Home meds 4. HLD - Home meds 5. Hyponatremia - Likely 2/2 beer potomania - Fluids and continue to monitor 6. Elevated lactic acid - No suspicion for infection at this time - Will repeat and trend, possibly hypoperfusion from bradycardia/dehydration 7. GRIS - Elevated from baseline - Continue fluids and monitor I, Christiane Crane MD, PGY-3, have evaluated this patient and agree with findings/ plan as outlined by internal audit director resident. Pertinent changes/additions are listed here.
[2018-06-03] MEDS ORDERED: Vancomycin HCl 1.5 GM in Sodium Chloride 0.9% 250 ML 300 ML IVPB ONE (16:45)
[2018-06-03 17:39] VITALS: BMI 27.8
[2018-06-03] MEDS ORDERED: Sodium Chloride 0.9% 1,000 ML IV SCH ×2 (17:42→18:42)
[2018-06-03 17:44] LABS: Troponin I 0.015 ng/mL (< 0.028)
[2018-06-03] MEDS ORDERED: Ondansetron ODT 4 MG TAB PO PRN (18:01)
[2018-06-03] MEDS ORDERED: Lactated Ringer's 1,000 ML IV SCH (18:01)
[2018-06-03] MEDS ORDERED: Ondansetron PF 4 MG/2 ML Vial IVP PRN (18:01)
[2018-06-03] MEDS: Heparin 5,000 UNITS/ML VIAL SC SCH (20:12)
[2018-06-03 20:49] LABS: Troponin I 0.028 ng/mL (< 0.028)
[2018-06-03] MEDS ORDERED: Methyl Salicylate/Menthol 85 GM TUBE TOP PRN (21:19)
[2018-06-03] MEDS: Acetaminophen 325 MG TAB PO PRN (22:34)
[2018-06-04] MEDS: Lactated Ringer's 1,000 ML IV SCH ×2 (03:04→13:16)
[2018-06-04] MEDS: Acetaminophen 325 MG TAB PO PRN (03:06)
[2018-06-04 06:26] LABS: ALT (SGPT) 13 U/L (8-55); AST (SGOT) 24 U/L (5-34); Albumin 3.6 g/dL (3.4-4.8); Alkaline Phosphatase 57 U/L (40-150); Anion Gap 14 mmol/L (10-20); BUN (Urea Nitrogen) 22 mg/dL (8.4-25.7); Bilirubin, Total 0.3 mg/dL (0.2-1.2); Calc. Creatinine Clearance 84 mL/min (70-130); Calcium 8.6 mg/dL (7.8-10.44); Carbon Dioxide 17 mmol/L (23-31); Chloride 108 mmol/L (98-107); Estimated GFR-MDRD 72; Globulin 3.3 g/dL (2.4-3.5); Glucose 106 mg/dL (80-115); Potassium 4.6 mmol/L (3.5-5.1); Protein, Total 6.9 g/dL (5.8-8.1); Sodium 134 mmol/L (136-145)
--- NOTE | 2018-06-04 07:15 | PDOC.FM ---
- Subjective Subjective: Patient reports feeling alright this AM. Denies any chest pain or SOB. Reported 1 episode of diarrhea to his nurse and reports havign a h/o C diff infection this past March. Says he has pain in his left ankle and it is exacerbated by weight bearing. Is unable to completely move his foot 2/2 pain. Would like something stronger than tylenol. Says he takes tramadol at home. - Objective MAR Reviewed: Yes Vital Signs & Weight: Vital Signs (12 hours) Temp Pulse Resp BP Pulse Ox 06/04/18 04:05 98.8 F 72 20 117/58 L 95 06/04/18 00:03 99.4 F 86 20 114/58 L 95 06/03/18 19:38 95 06/03/18 19:37 97.9 F 79 16 107/57 L 95 Weight Weight 85.457 kg I&O: 06/03/18 06/04/18 06/05/18 06:59 06:59 06:59 Intake Total 2076 Output Total 1575 Balance 501 Result Diagrams: 06/04/18 04:47 06/04/18 04:47 <Denae Garvin - Last Filed: 06/04/18 09:44> - Objective Vital Signs & Weight: Vital Signs (12 hours) Temp Pulse Resp BP BP Pulse Ox 06/04/18 07:27 97.6 F 78 14 144/76 H 98 06/04/18 04:05 98.8 F 72 20 117/58 L 95 06/04/18 00:03 99.4 F 86 20 114/58 L 95 Weight Weight 85.457 kg I&O: 06/03/18 06/04/18 06/05/18 06:59 06:59 06:59 Intake Total 2076 Output Total 1575 Balance 501 Result Diagrams: 06/04/18 04:47 06/04/18 04:47 <Italo Dhillon - Last Filed: 06/04/18 10:42> Phys Exam - Physical Examination Constitutional: NAD HEENT: moist MMs Neck: supple, full ROM Respiratory: no wheezing, no rales, no rhonchi, clear to auscultation bilateral Cardiovascular: RRR, no significant murmur mild distension 2/2 body habitus Musculoskeletal: no edema no obvious bruising over left ankle or foot but limited ROM 2/2 pain in ankle, able to move toes w/o any issues Neurological: non-focal, moves all 4 limbs Psychiatric: normal affect, A&O x 3 Skin: no rash, normal turgor Deviation from normal: palmar erythema noted & telangiectasia on back <Denae Garvin - Last Filed: 06/04/18 09:44> Dx/Plan (1) Symptomatic bradycardia Code(s): R00.1 - BRADYCARDIA, UNSPECIFIED Status: Acute (2) Acute alcohol abuse Code(s): F10.10 - ALCOHOL ABUSE, UNCOMPLICATED Status: Acute (3) GRIS (acute kidney injury) Code(s): N17.9 - ACUTE KIDNEY FAILURE, UNSPECIFIED Status: Resolved (4) Hyponatremia Code(s): E87.1 - HYPO-OSMOLALITY AND HYPONATREMIA Status: Acute (5) Hyperlipidemia Code(s): E78.5 - HYPERLIPIDEMIA, UNSPECIFIED Status: Chronic Qualifiers: Hyperlipidemia type: unspecified Qualified Code(s): E78.5 - Hyperlipidemia , unspecified (6) PVD (peripheral vascular disease) Code(s): I73.9 - PERIPHERAL VASCULAR DISEASE, UNSPECIFIED Status: Chronic - Plan Plan: Symptomatic Bradycardia - HR in the 30s on initial presentation w/ a junctional rhythym present. s/p atropine & 3L IVFs in ED. HR in 70-80s overnight. - Will consider desescalating IVFs if patient is hydrating adequately PO as GRIS and bradycardia have resolved with overnight fluids. - Trop neg x 3. - TSH low at 0.1558. GRIS - Improving - Cr 1.47 on presentation but down to WNLs at 1.03 this AM w/ an eGFR of ~70. - Will continue to monitor w/ QD BMPs. - Will consider deescalating IVFs today if patient is able to tolerate PO. Left ankle pain: - Will get an x-ray of left ankle & foot to r/o any acute fractures that could be causing his pain. No obvious swelling or bruising on exam but limited ROM 2/ 2 pain. - Will continue PO tylenol for now. Avoiding NSAIDS due to GRIS. Will consider resuming reported home tramadol dosing once x-rays result. Alcohol Abuse - Alcohol level 284 on presentation. - Will continue to monitor vitals and MS closely. - ASE protocol initiated. - If here > 24 hours consider starting prophylactic benzo taper or beer with meals. Hypertriglyceridemia - Aware, will resume home meds. HTN - Will resume home lisinopril confirmed by patient as BPs have steadily increased since admission. Hyponatremia - Na low at 129 on presentation and still below normal limits at 134 this AM. - Likely 2/2 beer potomania. - Patient remains asymptomatic. Will continue to monitor w/ QD labs. Elevated lactic acid - Improving as lactate downtrended from 3.5 to 3.0 after IVFs in ED. - No suspicion for infection at this time. - Will continue to trend. Most likely 2/2 hypoperfusion from bradycardia and/or dehydration. DISP: Possible d/c home later today. CODE: FULL vte ppx: heparin Case discussed with Dr. Dhillon <Denae Garvin - Last Filed: 06/04/18 09:44> Attending Addendum - Attending Addendum Date/Time: 06/04/18 1019 I personally evaluated the patient and discussed the management with Dr. Garvin. I agree with the History, Examination, Assessment and Plan documented above with any addition or exceptions noted below. Left dorsal ankle and foot pain 2/2 a possible avulsion fracture of left foot seen on x-ray. Bradycardia, lactic acidosis, GRIS, and hyponatremia all improving after IVFs overnight. All likely 2/2 acute EtOh intoxication. Will wait for official radiology read regarding ankle and foot and anticipate possible discharge home later with a boot for immobilization. <Italo Dhillon - Last Filed: 06/04/18 10:42>
[2018-06-04] MEDS ORDERED: Prevnar 13-Val Conj/PF 0.5 ML SYRINGE IM ONE (09:00)
[2018-06-04 09:01] LABS: Lactic Acid 0.8 mmol/L (0.5-2.2)
[2018-06-04 09:04] LABS: #Eosinphils 0.1 thou/uL (0.0-0.7); #Lymphocytes 1.4 thou/uL (1.20-3.40); #Monocytes 0.9 thou/uL (0.11-0.59); #Neutrophils 6.4 thou/uL (1.40-6.50); %Basophils 0.5 % (0.0-1.0); %Eosinophils 1.4 % (0.0-10.0); %Lymphocytes 15.4 % (21.0-51.0); %Neutrophils 72.7 % (42.0-75.0); Hemoglobin 12.8 g/dL (14.0-18.0); Mean Corpuscular HGB CONC 34.4 g/dL (32.0-36.0); Mean Corpuscular Hemoglobin 34.9 pg (27.0-31.0); Mean Platelet Volume 9.9 fL (7.4-10.4); Platelet Count 169 thou/uL (130-400); RBC Distribution Width 13.5 % (11.5-14.5); Red Blood Cell (RBC) Count 3.67 mill/uL (4.70-6.10); White Blood Cell (WBC) Count 8.7 thou/uL (4.8-10.8)
[2018-06-04] MEDS: Heparin 5,000 UNITS/ML VIAL SC SCH (09:16)
[2018-06-04 09:39] VITALS: TEMP 97.6
--- NOTE | 2018-06-04 10:21 | RAD ---
LEFT FOOT RADIOGRAPHS 3 VIEWS: DATE: 06/04/2018. PROVIDED CLINICAL HISTORY: Left foot pain. FINDINGS: Plantar calcaneal enthesophyte formation is noted. There is no evidence for a fracture or other acut e osseous abnormality. If there is persistent clinical concern, conservative management and followup imaging are advised. IMPRESSION: As above. POS: DOLLY
--- NOTE | 2018-06-04 10:22 | RAD ---
LEFT ANKLE RADIOGRAPHS 3 VIEWS: DATE: 06/04/2018. PROVIDED CLINICAL HISTORY: Left ankle pain. FINDINGS: There is linear radiolucency involving the dorsal aspect of the talar head on the lateral view that m ay reflect a nondisplaced capsular avulsion fracture. No additional fracture is evident. Alignment appears anatomic. Joint spaces appear preserved. Plantar calcaneal enthesophyte formation is noted. IMPRESSION: Possible nondisplaced capsular avulsion fracture involving the dorsal talar head. POS: DOLLY
[2018-06-04 12:41] VITALS: BP 152/69
[2018-06-04] MEDS ORDERED: Gemfibrozil 600 MG TAB PO SCH (16:30)
[2018-06-04] MEDS ORDERED: Gabapentin 300 MG CAP PO SCH (21:00)
[2018-06-05] MEDS ORDERED: Lisinopril 20 MG TAB PO SCH (09:00)
--- NOTE | 2018-06-05 11:52 | DIS ---
DATE OF ADMISSION: 06/03/2018 DATE OF DISCHARGE: 06/04/2018 RESIDENT: Dr. Denae Garvin. ADMITTING ATTENDING: Italo Dhillon MD. DISCHARGE ATTENDING: Italo Dhillon MD. CONSULTS: None. PROCEDURES: 1. Chest x-ray, which showed no evidence of an acute cardiopulmonary process. 2. Right knee x-ray, which showed no evidence for an acute osseous abnormality. 3. Left ankle x-ray, which was significant for a possible nondisplaced capsular avulsion fracture involving the dorsal talar head. 4. Left foot x-ray, which showed a plantar calcaneal enthesophyte formation with no evidence for acute fracture or other acute osseous abnormality. PRIMARY DIAGNOSES: 1. Nondisplaced capsular avulsion fracture involving the left dorsal talar head. 2. Acute alcohol intoxication. 3. Symptomatic bradycardia secondary to acute alcohol intoxication. 4. Acute kidney injury. 5. Hyponatremia secondary to alcohol abuse. 6. Elevated lactate secondary to volume depletion and acute alcohol intoxication. SECONDARY DIAGNOSES: 1. Hypertension. 2. Hypertriglyceridemia. 3. Peripheral vascular disease, status post right below-knee amputation. 4. Chronic alcohol abuse. 5. Macrocystic anemia. DISCHARGE MEDICATIONS: Of note, the patient receives all written prescriptions from the [facility], which we were not able to confirm during the weekend. Therefore, resuming meds were recommended as confirmed by word of mouth of the patient, which included: 1. Gemfibrozil 600 mg p.o. b.i.d. AC. 2. Lisinopril 20 mg p.o. daily. 3. Gabapentin 900 mg p.o. at bedtime. 4. Bengay 5 g topically q.i.d. p.r.n. DISCONTINUED MEDICATIONS: None. HOSPITAL COURSE: The patient is a 68-year-old gentleman with a past medical history significant for alcohol abuse, hypertension, and peripheral vascular disease, status post right BKA, who presented to the emergency department complaining of left ankle pain after tripping and falling while intoxicated. The patient reported some transient dizziness after his fall, but denied any shortness of breath, chest pain, or palpitations. PHYSICAL EXAMINATION: VITAL SIGNS: On presentation to the emergency department, his vitals were noted to be within normal limits with the exception of a low blood pressure of 80/44. His initial heart rate was about 70 beats per minute. However, over the course of the next hour, his heart rate dropped to as low as 45 and even down to the 30s per report by the handing off ER physician. The patient was, therefore, given one 0.5 mg dose of IV atropine as well as 2.5 L of normal saline in the emergency department. However, due to his initial blood pressure measuring less than 90 systolic with the mean arterial pressure less than 65, the patient had a positive SIRS score and therefore had routine blood work including blood cultures and lactic acid level drawn while in the emergency department. Fortunately, the patient responded well to the atropine and IV fluid resuscitation, and his blood pressure and heart rate returned to normal limits. He was therefore determined to be stable and admitted for close observation on the floor overnight and telemetry. The patient's heart rate remained in the 70 to 80 range overnight without any acute events. The following morning, he was complaining of persistent left foot pain despite his knee x-ray being negative. He therefore had left foot and ankle x-rays obtained of which the ankle x-ray showed a possible nondisplaced capsular avulsion fracture involving the left dorsal talar head. The patient was therefore fitted for an orthotic boot for his left foot and instructed to follow up closely with his primary care physician and/or the [facility] within 1 week of discharge. Regarding the patient's lab abnormalities including a low sodium level of 129, an elevated creatinine of 1.47, and an elevated lactic acid of 3.7, the patient was continued on maintenance IV fluids with lactated Ringers at a rate of 120 mL an hour overnight and these lab values were rechecked the morning of the patient's discharge. Fortunately, all of these derangements had corrected to be either within normal limits or had trended in the right direction. It was therefore determined to be most likely secondary to slight volume depletion in the setting of acute alcohol intoxication. The patient was therefore determined to be stable and cleared for discharge home. DISCHARGE INSTRUCTIONS: 1. Location: Home. 2. Diet: Heart-healthy diet, low sodium. 3. Activity: Weightbearing as tolerated in left foot while wearing orthotic boot. The patient was instructed to wear the boot at all times, but is permitted to remove it in the shower and while in bed if too uncomfortable to sleep in. 4. Followup: The patient was instructed to follow up with his primary care provider at the [facility] within 1 week of discharge in order to obtain repeat x-rays of his foot within the next 2 to 3 weeks to monitor for proper healing. Job ID: [id number]
--- NOTE | 2018-06-10 13:25 | EKG ---
Test Reason : HYPOTENSION Blood Pressure : / mmHG Vent. Rate : 052 BPM Atrial Rate : 039 BPM P-R Int : 000 ms QRS Dur : 084 ms QT Int : 402 ms P-R-T Axes : 000 018 069 degrees QTc Int : 373 ms Sinus bradycardia Abnormal ECG Confirmed by THADDEUS LUNSFORD DO ([id number]), commissioning editor CECY ALEJANDRO ([id number]) on 06/10/2018 1:25:19 PM Referred By: DO LUNSFORD Confirmed By:THADDEUS LUNSFORD DO
== END 2018-06-04 15:24 | disposition home or self-care (01) | DRG 563 ==
LOC: ERS 13:00 → 2NO 14:57
PROVIDERS: ADMIT Family Medicine; ATTEND Family Medicine
DX: S92.155A Nondisplaced avulsion fracture (chip fracture) of left talus, initial encounter for closed fracture (principal); N17.9 Acute kidney failure, unspecified; E87.1 Hypo-osmolality and hyponatremia; E87.2 Acidosis; W01.0XXA Fall on same level from slipping, tripping and stumbling without subsequent striking against object, initial encounter; F10.129 Alcohol abuse with intoxication, unspecified; T51.0X1A Toxic effect of ethanol, accidental (unintentional), initial encounter; R00.1 Bradycardia, unspecified; E78.1 Pure hyperglyceridemia; Z89.511 Acquired absence of right leg below knee; I73.9 Peripheral vascular disease, unspecified; I10 Essential (primary) hypertension; F10.10 Alcohol abuse, uncomplicated; Y90.8 Blood alcohol level of 240 mg/100 ml or more
CPT/HCPCS: 36415; 71045; 80053; 80307; 83605; 84443; 84484; 85025; 87040; 87149; 93005; J0461; J1644; J2543; J3370; J7050

== ENCOUNTER 2018-08-02 09:05 | Emergency (ER) | payer OTHER, MEDICARE ==
[2018-08-02 09:26] LABS: #Eosinphils 0.1 thou/uL (0.0-0.7); #Lymphocytes 2.3 thou/uL (1.20-3.40); #Monocytes 0.7 thou/uL (0.11-0.59); %Basophils 0.6 % (0.0-1.0); %Lymphocytes 32.5 % (21.0-51.0); %Monocytes 9.5 % (0.0-10.0); %Neutrophils 56.4 % (42.0-75.0); Hemoglobin 15.3 g/dL (14.0-18.0); Mean Corpuscular Hemoglobin 33.8 pg (27.0-31.0); Mean Platelet Volume 8.4 fL (7.4-10.4); Platelet Count 280 thou/uL (130-400); RBC Distribution Width 13.4 % (11.5-14.5); Red Blood Cell (RBC) Count 4.52 mill/uL (4.70-6.10); White Blood Cell (WBC) Count 7.1 thou/uL (4.8-10.8)
[2018-08-02] MEDS ORDERED: [UNRECOGNIZED DRUG - OTHER] IV SCH (09:30)
[2018-08-02] MEDS ORDERED: THIAMINE HCL IV SCH (09:30)
[2018-08-02] MEDS ORDERED: FOLIC ACID IV SCH (09:30)
[2018-08-02] MEDS ORDERED: MULTIVITAMINS IV SCH (09:30)
[2018-08-02 11:27] LABS: Albumin 3.8 g/dL (3.4-4.8)
[2018-08-02 11:29] LABS: Calcium 8.6 mg/dL (7.8-10.44); Chloride 104 mmol/L (98-107); Potassium 4.4 mmol/L (3.5-5.1); Sodium 134 mmol/L (136-145)
[2018-08-02 11:30] LABS: Glucose 88 mg/dL (80-115); Protein, Total 6.8 g/dL (5.8-8.1)
[2018-08-02 11:31] LABS: Anion Gap 15 mmol/L (10-20); Carbon Dioxide 19 mmol/L (23-31)
[2018-08-02 11:32] LABS: Bilirubin, Total 0.2 mg/dL (0.2-1.2)
[2018-08-02 11:33] LABS: Alcohol 260 mg/dL (Less than 10); Alkaline Phosphatase 60 U/L (40-150); Calc. Creatinine Clearance 0 mL/min (70-130); Estimated GFR-MDRD 53
[2018-08-02 11:34] LABS: BUN (Urea Nitrogen) 14 mg/dL (8.4-25.7)
[2018-08-02 11:35] LABS: AST (SGOT) 17 U/L (5-34)
[2018-08-02 11:36] LABS: ALT (SGPT) 11 U/L (8-55); CK (CPK) 91 U/L (30-200)
--- NOTE | 2018-08-05 18:16 | EKG ---
Test Reason : Blood Pressure : / mmHG Vent. Rate : 063 BPM Atrial Rate : 125 BPM P-R Int : 000 ms QRS Dur : 086 ms QT Int : 396 ms P-R-T Axes : 000 026 068 degrees QTc Int : 405 ms Atrial fibrillation with a competing junctional pacemaker Abnormal ECG Confirmed by TERESA MARTINEZ, MAGDALENA ([id number]), video news editor EDWIN TREJO ([id number]) on 08/05/2018 6:16:26 PM Referred By: Confirmed By:MAGDALENA MOORE MD
== END 2018-08-02 12:28 | disposition home or self-care (01) ==
LOC: ERS 09:05
DX: E86.0 Dehydration (principal); F10.129 Alcohol abuse with intoxication, unspecified; I95.9 Hypotension, unspecified; E78.5 Hyperlipidemia, unspecified; I48.91 Unspecified atrial fibrillation; F32.9 Major depressive disorder, single episode, unspecified; F17.210 Nicotine dependence, cigarettes, uncomplicated; Y90.8 Blood alcohol level of 240 mg/100 ml or more; Z79.891 Long term (current) use of opiate analgesic; Z79.899 Other long term (current) drug therapy
CPT/HCPCS: 36415; 36416; 80053; 80307; 82550; 84484; 85025; 93005; 94760; 96361; 96365; 96366; 96368; J3411; J7050

== ENCOUNTER 2020-09-01 20:15 | Inpatient (IN) | payer OTHER, MEDICARE ==
[~2020-09-01 20:15] MED LIST changes: +Atropine Sulfate 1 mg/10 ml Syringe ONE; -ISOVUE-370 76%-LOCM 1 ML ONE
[2020-09-01 21:20] LABS: #Lymphocytes 0.7 thou/uL (1.20-3.40); #Monocytes 0.8 thou/uL (0.11-0.59); #Neutrophils 6.7 thou/uL (1.40-6.50); %Basophils 0.2 % (0.0-1.0); %Eosinophils 0.5 % (0.0-10.0); %Lymphocytes 8.6 % (21.0-51.0); %Monocytes 9.6 % (0.0-10.0); %Neutrophils 81.1 % (42.0-75.0); Hemoglobin 10.5 g/dL (14.0-18.0); Mean Corpuscular HGB CONC 33.6 g/dL (32.0-36.0); Mean Corpuscular Hemoglobin 36.4 pg (27.0-31.0); Mean Platelet Volume 8.6 fL (7.4-10.4); Platelet Count 227 thou/uL (130-400); RBC Distribution Width 14.3 % (11.5-14.5); Red Blood Cell (RBC) Count 2.88 mill/uL (4.70-6.10); White Blood Cell (WBC) Count 8.2 thou/uL (4.8-10.8)
[2020-09-01] MEDS ORDERED: Aspirin Chewable 81 MG TAB ONE (21:20)
[2020-09-01 21:38] LABS: ALT (SGPT) 40 U/L (8-55); AST (SGOT) 43 U/L (5-34); Alcohol Less than 10 mg/dL (Less than 10); Alkaline Phosphatase 52 U/L (40-110); Anion Gap 20 mmol/L (10-20); BUN (Urea Nitrogen) 29 mg/dL (8.4-25.7); Bilirubin, Total 0.2 mg/dL (0.2-1.2); CK (CPK) 182 U/L (30-200); Calc. Creatinine Clearance 0 mL/min (70-130); Carbon Dioxide 20 mmol/L (23-31); Chloride 99 mmol/L (98-107); Globulin 3.6 g/dL (2.4-3.5); Glucose 132 mg/dL (80-115); Protein, Total 7.6 g/dL (5.8-8.1); Sodium 133 mmol/L (136-145)
[2020-09-01 21:45] LABS: Acetaminophen Less than 6.0 mcg/mL (10.0-30.0); Alcohol Less than 10 mg/dL (Less than 10); Salicylate Less than 8.0 mg/dL (15.0-30.0)
[2020-09-01 21:59] LABS: Lipase Less than 32 U/L (8-78)
[2020-09-01] MEDS ORDERED: Multivitamins, Adult 10 ML, Thiamine HCl 100 MG, Folic Acid 1 MG in Dextrose 5 %-0.45 %... IV SCH (22:00)
[2020-09-01] MEDS ORDERED: Lorazepam 2 MG/ML VIAL ONE (22:43)
[2020-09-01] MEDS ORDERED: Dextrose 50% Abboject 50 ML SYRINGE ONE (22:53)
[2020-09-01] MEDS ORDERED: Insulin Regular 300 UNITS/3 ML VIAL ONE (22:53)
[2020-09-01] MEDS ORDERED: Calcium Gluc 4.6 MEQ/10 ML (100 MG/ML) ONE (22:53)
[2020-09-01 23:36] LABS: Bacteria/HPF None Seen HPF (None Seen); Bilirubin Negative (Negative); Blood, Urine Trace (Negative); Clarity Clear (Clear); Glucose, Urine (Dipstick) 150 mg/dL (Negative); Ketone, Urine Negative (Negative); Leukocyte Negative Leu/uL (Negative); Nitrite Negative (Negative); Protein, Urine (Dipstick) 30 mg/dL (Neg-Trace); RBC/HPF 0-3 HPF (0-3); Specific Gravity, Urine 1.021 (1.002-1.036); Squamous Epithelial 0-3 HPF (0-3); Urobilinogen Normal mg/dL (Less than 2); WBC/HPF 0-3 HPF (0-3); pH, Urine 5.5 (5.0-9.0)
[2020-09-01 23:46] LABS: Amphetamine Not Detected (NotDetected); Barbiturates Screen Not Detected (NotDetected); Benzodiazepine Screen Not Detected (NotDetected); Cocaine Metabolite Screen Not Detected (NotDetected); Medtox Control Line Valid? VALID (VALID); Medtox Reader # READER 1; Methadone Not Detected (NotDetected); Methamphetamine Not Detected (NotDetected); Opiate Screen Not Detected (NotDetected); Oxycodone Screen Not Detected (NotDetected); Phencyclidine (PCP) Not Detected (NotDetected); THC/Cannabinoid Screen Not Detected (NotDetected); Tricyclic Screen Detected (NotDetected)
[2020-09-02] MEDS ORDERED: Atropine Sulfate 1 mg/10 ml Syringe ONE ×2 (00:12→04:37)
[2020-09-02] MEDS ORDERED: Calcium Gluc 4.6 MEQ/10 ML (100 MG/ML) ONE (00:17)
[2020-09-02] MEDS ORDERED: Albuterol Sulfate 2.5 mg/3 ml Neb ONE (00:20)
[2020-09-02] MEDS ORDERED: Albuterol Sulfate 2.5 mg/0.5 ml Neb ONE (00:20)
[2020-09-02] MEDS ORDERED: Norepinephrine 4 MG/4 ML VIAL ONE ×2 (00:44)
[2020-09-02] MEDS ORDERED: Norepinephrine 8 MG/0.9% NS 250 ML ONE (00:46)
[2020-09-02 00:47] LABS: Anion Gap 18 mmol/L (10-20); BUN (Urea Nitrogen) 20 mg/dL (8.4-25.7); Calc. Creatinine Clearance 0 mL/min (70-130); Calcium 9.3 mg/dL (7.8-10.44); Carbon Dioxide 19 mmol/L (23-31); Chloride 100 mmol/L (98-107); Glucose 210 mg/dL (80-115); Potassium 5.2 mmol/L (3.5-5.1); Sodium 132 mmol/L (136-145)
[2020-09-02] MEDS ORDERED: Sodium Bicarb 50 MEQ/50 ML Abboject 8.4% SYRINGE ONE (00:49)
[2020-09-02 00:59] LABS: Troponin I 0.018 ng/mL (< 0.028)
[2020-09-02 00:59] LABS: Actual Bicarbonate (HCO3a) 21.2 mEq/L (22-28); Analyzer IN Cardio ER; Base Excess (BEa) -6.4 mEq/L (-2.0 to +3.0); CO2 Tension 52.3 mmHg (35.0-45.0); Calcium, Ionized (arterial) 1.27 mmol/L (1.12-1.30); Carboxyhemoglobin (COHb) 0.3 gm% (0.0-3.0); Hemoglobin (Hb) 10.1 g/dL (14.0-18.0); O2 Tension (PaO2), arterial 117.5 mmHg (> 80.0); Potassium - ABG Lab 4.94 mmol/L (3.70-5.30)
[2020-09-02] MEDS ORDERED: Sodium Bicarb 50 MEQ/50 ML Abboject 8.4% SYRINGE IVP SCH (01:00)
[2020-09-02] MEDS ORDERED: Acetaminophen 325 MG TAB PO PRN (01:25)
[2020-09-02] MEDS ORDERED: Ondansetron PF 4 MG/2 ML Vial IVP PRN (01:25)
[2020-09-02] MEDS ORDERED: Diazepam 5 MG TAB PO PRN (01:40)
[2020-09-02 01:45] LABS: SARS-CoV-2 NAA Rapid Test Not Detected (NotDetected)
[2020-09-02 03:14] LABS: #Eosinphils 0.1 thou/uL (0.0-0.7); #Lymphocytes 1.2 thou/uL (1.20-3.40); #Neutrophils 4.5 thou/uL (1.40-6.50); %Basophils 0.4 % (0.0-1.0); %Eosinophils 1.1 % (0.0-10.0); %Lymphocytes 17.1 % (21.0-51.0); %Monocytes 14.4 % (0.0-10.0); Hemoglobin 9.8 g/dL (14.0-18.0); Mean Corpuscular Hemoglobin 35.9 pg (27.0-31.0); Mean Platelet Volume 8.3 fL (7.4-10.4); Platelet Count 208 thou/uL (130-400); RBC Distribution Width 14.6 % (11.5-14.5); Red Blood Cell (RBC) Count 2.74 mill/uL (4.70-6.10); White Blood Cell (WBC) Count 6.7 thou/uL (4.8-10.8)
[2020-09-02] MEDS ORDERED: Diazepam 5 MG TAB ONE (03:19)
[2020-09-02 03:33] LABS: Troponin I 0.017 ng/mL (< 0.028)
[2020-09-02 03:37] LABS: ALT (SGPT) 44 U/L (8-55); AST (SGOT) 39 U/L (5-34); Albumin 3.9 g/dL (3.4-4.8); Alkaline Phosphatase 48 U/L (40-110); Anion Gap 20 mmol/L (10-20); BUN (Urea Nitrogen) 33 mg/dL (8.4-25.7); Bilirubin, Total 0.3 mg/dL (0.2-1.2); Calc. Creatinine Clearance 0 mL/min (70-130); Calcium 9.2 mg/dL (7.8-10.44); Carbon Dioxide 22 mmol/L (23-31); Chloride 99 mmol/L (98-107); Globulin 3.3 g/dL (2.4-3.5); Glucose 87 mg/dL (80-115); Potassium 4.8 mmol/L (3.5-5.1); Protein, Total 7.2 g/dL (5.8-8.1); Sodium 136 mmol/L (136-145)
[2020-09-02 04:09] LABS: Puncture Site LBA; pH, Arterial 7.23 (7.35-7.45)
[2020-09-02 04:10] LABS: ALV-art Gradient 31.025 mmHg (0-20)
[2020-09-02 04:56] LABS: Actual Bicarbonate (HCO3a) 24.4 mEq/L (22-28); Analyzer IN Cardio ER; Base Excess (BEa) -1.1 mEq/L (-2.0 to +3.0); CO2 Tension 44.2 mmHg (35.0-45.0); Calcium, Ionized (arterial) 1.18 mmol/L (1.12-1.30); Hemoglobin (Hb) 9.6 g/dL (14.0-18.0); O2 Tension (PaO2), arterial 89.5 mmHg (> 80.0); Potassium - ABG Lab 4.81 mmol/L (3.70-5.30); pH, Arterial 7.36 (7.35-7.45)
[2020-09-02 04:57] LABS: Puncture Site LBA
[2020-09-02] MEDS: Sodium Chloride 0.9% 1,000 ML IV SCH ×2 (06:05→18:25)
[2020-09-02] MEDS ORDERED: Albumin 25% 25 GM/100 ML BOT IVPB ONE (09:18)
[2020-09-02] MEDS ORDERED: Dextrose 50% Abboject 50 ML SYRINGE SLOW IVP PRN (09:19)
[2020-09-02] MEDS ORDERED: Dextrose 5% in Water 1,000 ML IV PRN (09:19)
[2020-09-02] MEDS: Multivitamin W/ Minerals 1 TAB PO SCH (09:46)
[2020-09-02] MEDS: Folic Acid 1 MG TAB PO SCH (09:47)
[2020-09-02] MEDS: Famotidine 20 MG TAB PO SCH (09:47)
[2020-09-02] MEDS ORDERED: Norepinephrine 8 MG/0.9% NS 250 ML IVPB SCH (10:45)
[2020-09-02] MEDS: Hydrocortisone Sod Succ/PF 100 mg/2 ml Vial IVP SCH ×3 (11:22→23:15)
[2020-09-02] MEDS ORDERED: DOPamine 400 MG/D5W 250 ML 250 ML ONE (13:53)
[2020-09-02] MEDS ORDERED: DOPamine 400 MG/D5W 250 ML 250 ML IVPB SCH (14:45)
[2020-09-02] MEDS ORDERED: Gentamicin 80 MG/2 ML VIAL ONE (15:39)
[2020-09-02] MEDS ORDERED: CEFAZOLIN 1 GM VIAL ONE (15:39)
[2020-09-02] MEDS ORDERED: Lidocaine 1% (PF) 30 ML VIAL ONE ×2 (15:44→16:35)
[2020-09-02] MEDS ORDERED: Midazolam HCl 2 mg/2 ml Vial ONE (16:27)
[2020-09-02] MEDS: HumaLOG 300 UNITS/3 ML VIAL SC PRN (21:06)
[2020-09-03] MEDS: Sodium Chloride 0.9% 1,000 ML IV SCH (03:34)
[2020-09-03 03:46] LABS: #Lymphocytes 0.5 thou/uL (1.20-3.40); #Monocytes 0.4 thou/uL (0.11-0.59); #Neutrophils 5.6 thou/uL (1.40-6.50); %Eosinophils 0.1 % (0.0-10.0); %Lymphocytes 7.5 % (21.0-51.0); %Monocytes 6.4 % (0.0-10.0); %Neutrophils 86.1 % (42.0-75.0); Hemoglobin 9.7 g/dL (14.0-18.0); Mean Corpuscular HGB CONC 32.3 g/dL (32.0-36.0); Mean Corpuscular Hemoglobin 35.5 pg (27.0-31.0); Mean Platelet Volume 9.4 fL (7.4-10.4); Platelet Count 206 thou/uL (130-400); RBC Distribution Width 14.8 % (11.5-14.5); Red Blood Cell (RBC) Count 2.73 mill/uL (4.70-6.10); White Blood Cell (WBC) Count 6.6 thou/uL (4.8-10.8)
[2020-09-03] MEDS ORDERED: Diazepam 5 MG TAB PO PRN ×2 (04:00→08:49)
[2020-09-03 04:11] LABS: ALT (SGPT) 38 U/L (8-55); AST (SGOT) 39 U/L (5-34); Albumin 3.8 g/dL (3.4-4.8); Alkaline Phosphatase 48 U/L (40-110); Anion Gap 20 mmol/L (10-20); BUN (Urea Nitrogen) 38 mg/dL (8.4-25.7); Bilirubin, Total 0.3 mg/dL (0.2-1.2); Calc. Creatinine Clearance 43 mL/min (70-130); Calcium 8.2 mg/dL (7.8-10.44); Carbon Dioxide 18 mmol/L (23-31); Chloride 101 mmol/L (98-107); Globulin 3.4 g/dL (2.4-3.5); Glucose 170 mg/dL (80-115); Potassium 5.5 mmol/L (3.5-5.1); Protein, Total 7.2 g/dL (5.8-8.1); Sodium 133 mmol/L (136-145)
[2020-09-03] MEDS: Hydrocortisone Sod Succ/PF 100 mg/2 ml Vial IVP SCH ×4 (05:23→23:34)
[2020-09-03] MEDS: HumaLOG 300 UNITS/3 ML VIAL SC PRN (05:28)
[2020-09-03] MEDS: Famotidine 20 MG TAB PO SCH (07:37)
[2020-09-03] MEDS: Multivitamin W/ Minerals 1 TAB PO SCH ×2 (07:37→08:58)
[2020-09-03] MEDS: Folic Acid 1 MG TAB PO SCH ×2 (07:37→08:58)
[2020-09-03] MEDS ORDERED: Acetaminophen/Codeine 30-300mg Tablet PO PRN (07:42)
[2020-09-03] MEDS ORDERED: Magnesium Oxide 400 MG TAB PO SCH (09:00)
[2020-09-03] MEDS ORDERED: Thiamine HCl 200 MG/2 ML VIAL IM SCH (09:00)
[2020-09-03] MEDS ORDERED: Diazepam 5 MG TAB PO SCH (09:00)
[2020-09-03] MEDS ORDERED: Thiamine 100 MG TAB PO SCH (09:00)
[2020-09-03] MEDS ORDERED: BEER 1 CAN PO SCH (09:30)
[2020-09-03] MEDS ORDERED: FLU VACC QS2020-21(65YR UP)/PF 240 MCG/0.7 ML SYRINGE IM ONE (10:45)
[2020-09-03] MEDS ORDERED: Furosemide 20 MG/2 ML VIAL SLOW IVP SCH (11:00)
[2020-09-03] MEDS ORDERED: Sodium Chloride 0.9% 1,000 ML IV SCH ×2 (11:45)
[2020-09-03] MEDS: hydrALAZINE 20 MG/ML VIAL SLOW IVP PRN ×2 (14:53→23:34)
[2020-09-03] MEDS: BEER 1 CAN PO SCH ×2 (17:12→21:09)
[2020-09-03] MEDS: Sodium Bicarbonate Tab 325 MG TAB PO SCH (21:09)
[2020-09-04 04:10] LABS: #Eosinphils 0.1 thou/uL (0.0-0.7); #Lymphocytes 0.6 thou/uL (1.20-3.40); #Monocytes 0.7 thou/uL (0.11-0.59); %Basophils 0.2 % (0.0-1.0); %Eosinophils 1.4 % (0.0-10.0); %Lymphocytes 8.1 % (21.0-51.0); %Monocytes 9.7 % (0.0-10.0); %Neutrophils 80.6 % (42.0-75.0); Hemoglobin 10.2 g/dL (14.0-18.0); Mean Corpuscular HGB CONC 32.8 g/dL (32.0-36.0); Mean Corpuscular Hemoglobin 35.9 pg (27.0-31.0); Mean Platelet Volume 8.9 fL (7.4-10.4); Platelet Count 170 thou/uL (130-400); RBC Distribution Width 14.7 % (11.5-14.5); Red Blood Cell (RBC) Count 2.84 mill/uL (4.70-6.10); White Blood Cell (WBC) Count 7.4 thou/uL (4.8-10.8)
[2020-09-04 04:34] LABS: ALT (SGPT) 30 U/L (8-55); AST (SGOT) 33 U/L (5-34); Alkaline Phosphatase 50 U/L (40-110); Anion Gap 24 mmol/L (10-20); BUN (Urea Nitrogen) 35 mg/dL (8.4-25.7); Bilirubin, Total 0.3 mg/dL (0.2-1.2); Calc. Creatinine Clearance 67 mL/min (70-130); Calcium 8.3 mg/dL (7.8-10.44); Carbon Dioxide 16 mmol/L (23-31); Chloride 102 mmol/L (98-107); Globulin 3.5 g/dL (2.4-3.5); Glucose 143 mg/dL (80-115); Potassium 4.6 mmol/L (3.5-5.1); Protein, Total 7.5 g/dL (5.8-8.1); Sodium 137 mmol/L (136-145)
[2020-09-04] MEDS: Hydrocortisone Sod Succ/PF 100 mg/2 ml Vial IVP SCH (05:04)
[2020-09-04] MEDS: Gemfibrozil 600 MG TAB PO SCH ×2 (07:46→14:48)
[2020-09-04] MEDS: NIFEdipine XL 30 MG TAB PO SCH (07:46)
[2020-09-04] MEDS: Multivitamin W/ Minerals 1 TAB PO SCH (07:47)
[2020-09-04] MEDS: Lisinopril 5 MG TAB PO SCH ×2 (07:47→20:43)
[2020-09-04] MEDS: Sodium Bicarbonate Tab 325 MG TAB PO SCH ×2 (07:47→20:42)
[2020-09-04] MEDS: Famotidine 20 MG TAB PO SCH (07:47)
[2020-09-04] MEDS: Folic Acid 1 MG TAB PO SCH (07:48)
[2020-09-04] MEDS: hydrALAZINE 25 MG TAB PO SCH ×3 (07:48→20:43)
[2020-09-04] MEDS: Metoprolol Tartrate 25 MG TAB PO SCH ×2 (07:48→20:43)
[2020-09-04] MEDS: Magnesium Oxide 400 MG TAB PO SCH (07:48)
[2020-09-04] MEDS: Furosemide 20 MG TAB PO SCH (07:49)
[2020-09-04] MEDS: Thiamine 100 MG TAB PO SCH (07:50)
[2020-09-04] MEDS: BEER 1 CAN PO SCH ×3 (07:59→20:42)
[2020-09-04] MEDS: Diazepam 5 MG TAB PO PRN ×2 (11:20→16:15)
[2020-09-04] MEDS: traZODone HCl 50 MG TAB PO SCH (20:42)
[2020-09-04] MEDS ORDERED: traZODone HCl 50 MG TAB PO SCH (21:00)
[2020-09-05] MEDS: Diazepam 5 MG TAB PO PRN ×5 (01:04→21:56)
[2020-09-05] MEDS: Gemfibrozil 600 MG TAB PO SCH ×2 (07:42→17:01)
[2020-09-05] MEDS: BEER 1 CAN PO SCH ×3 (08:19→20:55)
[2020-09-05 08:22] LABS: #Eosinphils 0.1 thou/uL (0.0-0.7); #Lymphocytes 1.5 thou/uL (1.20-3.40); #Monocytes 0.9 thou/uL (0.11-0.59); #Neutrophils 4.1 thou/uL (1.40-6.50); %Basophils 0.5 % (0.0-1.0); %Eosinophils 2.1 % (0.0-10.0); %Lymphocytes 22.2 % (21.0-51.0); %Monocytes 13.9 % (0.0-10.0); %Neutrophils 61.4 % (42.0-75.0); Hemoglobin 9.9 g/dL (14.0-18.0); Mean Corpuscular HGB CONC 32.5 g/dL (32.0-36.0); Mean Platelet Volume 9.1 fL (7.4-10.4); PTT 28.2 sec (22.9-36.1); Platelet Count 198 thou/uL (130-400); Prothrombin Time 13.4 sec (12.0-14.7); RBC Distribution Width 14.7 % (11.5-14.5); Red Blood Cell (RBC) Count 2.82 mill/uL (4.70-6.10); White Blood Cell (WBC) Count 6.6 thou/uL (4.8-10.8)
[2020-09-05 08:26] LABS: ALT (SGPT) 31 U/L (8-55); AST (SGOT) 50 U/L (5-34); Albumin 3.5 g/dL (3.4-4.8); Alkaline Phosphatase 42 U/L (40-110); Anion Gap 22 mmol/L (10-20); BUN (Urea Nitrogen) 32 mg/dL (8.4-25.7); Bilirubin, Total 0.3 mg/dL (0.2-1.2); Calc. Creatinine Clearance 80 mL/min (70-130); Calcium 8.3 mg/dL (7.8-10.44); Carbon Dioxide 19 mmol/L (23-31); Chloride 100 mmol/L (98-107); Globulin 3.8 g/dL (2.4-3.5); Glucose 120 mg/dL (80-115); Potassium 4.5 mmol/L (3.5-5.1); Protein, Total 7.3 g/dL (5.8-8.1); Sodium 136 mmol/L (136-145)
[2020-09-05] MEDS: Famotidine 20 MG TAB PO SCH ×2 (08:54→20:56)
[2020-09-05] MEDS: Folic Acid 1 MG TAB PO SCH (08:55)
[2020-09-05] MEDS: hydrALAZINE 25 MG TAB PO SCH ×3 (08:56→20:55)
[2020-09-05] MEDS: Lisinopril 5 MG TAB PO SCH ×2 (08:58→20:56)
[2020-09-05] MEDS: Magnesium Oxide 400 MG TAB PO SCH (09:00)
[2020-09-05] MEDS: Metoprolol Tartrate 25 MG TAB PO SCH ×2 (09:01→20:55)
[2020-09-05] MEDS: Multivitamin W/ Minerals 1 TAB PO SCH (09:05)
[2020-09-05] MEDS: NIFEdipine XL 30 MG TAB PO SCH (09:05)
[2020-09-05] MEDS: Sodium Bicarbonate Tab 325 MG TAB PO SCH ×2 (09:06→20:57)
[2020-09-05] MEDS: Thiamine 100 MG TAB PO SCH (09:06)
[2020-09-05] MEDS: Furosemide 20 MG TAB PO SCH (09:10)
[2020-09-05] MEDS: traZODone HCl 50 MG TAB PO SCH (20:57)
[2020-09-06] MEDS: Diazepam 5 MG TAB PO PRN (03:44)
[2020-09-06 04:23] LABS: ALT (SGPT) 31 U/L (8-55); AST (SGOT) 36 U/L (5-34); Albumin 3.8 g/dL (3.4-4.8); Alkaline Phosphatase 46 U/L (40-110); Anion Gap 22 mmol/L (10-20); BUN (Urea Nitrogen) 24 mg/dL (8.4-25.7); Bilirubin, Total 0.4 mg/dL (0.2-1.2); Calc. Creatinine Clearance 90 mL/min (70-130); Carbon Dioxide 19 mmol/L (23-31); Chloride 98 mmol/L (98-107); Globulin 3.4 g/dL (2.4-3.5); Glucose 116 mg/dL (80-115); Potassium 3.8 mmol/L (3.5-5.1); Protein, Total 7.2 g/dL (5.8-8.1); Sodium 135 mmol/L (136-145)
[2020-09-06 05:04] LABS: Band 3 % (5-11); Eosinophils 1 % (0-10); Hemoglobin 10.9 g/dL (14.0-18.0); Lymphocytes 22 % (21-51); MDiff Complete? YES; Macrocytosis SLIGHT = 6-15 cells (100X) (0-5/hpf); Mean Corpuscular HGB CONC 33.6 g/dL (32.0-36.0); Mean Platelet Volume 8.3 fL (7.4-10.4); Monocytes 19 % (0-10); Neutrophil 55 % (42-75); Platelet Count 232 thou/uL (130-400); RBC Distribution Width 14.8 % (11.5-14.5); Red Blood Cell (RBC) Count 3.04 mill/uL (4.70-6.10); White Blood Cell (WBC) Count 7.4 thou/uL (4.8-10.8)
[2020-09-06] MEDS: BEER 1 CAN PO SCH ×3 (08:03→21:25)
[2020-09-06] MEDS: Famotidine 20 MG TAB PO SCH ×2 (08:13→21:25)
[2020-09-06] MEDS: Thiamine 100 MG TAB PO SCH (08:13)
[2020-09-06] MEDS: Furosemide 20 MG TAB PO SCH (08:13)
[2020-09-06] MEDS: Gemfibrozil 600 MG TAB PO SCH ×2 (08:13→16:02)
[2020-09-06] MEDS: Multivitamin W/ Minerals 1 TAB PO SCH (08:13)
[2020-09-06] MEDS: Magnesium Oxide 400 MG TAB PO SCH (08:13)
[2020-09-06] MEDS: Folic Acid 1 MG TAB PO SCH (08:13)
[2020-09-06] MEDS: Sodium Bicarbonate Tab 325 MG TAB PO SCH ×2 (08:13→21:26)
[2020-09-06] MEDS: NIFEdipine XL 30 MG TAB PO SCH (08:14)
[2020-09-06] MEDS: Lisinopril 5 MG TAB PO SCH ×2 (08:14→21:26)
[2020-09-06] MEDS: hydrALAZINE 25 MG TAB PO SCH ×3 (08:14→21:26)
[2020-09-06] MEDS: Metoprolol Tartrate 25 MG TAB PO SCH ×2 (08:14→21:26)
[2020-09-06] MEDS: traZODone HCl 50 MG TAB PO SCH (21:26)
[2020-09-07] MEDS: Sodium Bicarbonate Tab 325 MG TAB PO SCH ×2 (08:03→20:15)
[2020-09-07] MEDS: Famotidine 20 MG TAB PO SCH ×2 (08:03→20:15)
[2020-09-07] MEDS: Folic Acid 1 MG TAB PO SCH (08:04)
[2020-09-07] MEDS: Magnesium Oxide 400 MG TAB PO SCH (08:04)
[2020-09-07] MEDS: hydrALAZINE 25 MG TAB PO SCH ×3 (08:04→20:30)
[2020-09-07] MEDS: Furosemide 20 MG TAB PO SCH (08:04)
[2020-09-07] MEDS: Multivitamin W/ Minerals 1 TAB PO SCH (08:04)
[2020-09-07] MEDS: Thiamine 100 MG TAB PO SCH (08:04)
[2020-09-07] MEDS: NIFEdipine XL 30 MG TAB PO SCH (08:04)
[2020-09-07] MEDS: Lisinopril 5 MG TAB PO SCH ×2 (08:04→20:23)
[2020-09-07] MEDS: Gemfibrozil 600 MG TAB PO SCH ×2 (08:05→16:34)
[2020-09-07] MEDS: Metoprolol Tartrate 25 MG TAB PO SCH ×2 (08:05→20:31)
[2020-09-07] MEDS: BEER 1 CAN PO SCH ×3 (09:11→20:32)
[2020-09-07] MEDS: traZODone HCl 50 MG TAB PO SCH (20:14)
[2020-09-08] MEDS: BEER 1 CAN PO SCH (08:10)
[2020-09-08] MEDS: Sodium Bicarbonate Tab 325 MG TAB PO SCH (08:12)
[2020-09-08] MEDS: NIFEdipine XL 30 MG TAB PO SCH (08:13)
[2020-09-08] MEDS: Famotidine 20 MG TAB PO SCH (08:14)
[2020-09-08] MEDS: Multivitamin W/ Minerals 1 TAB PO SCH (08:14)
[2020-09-08] MEDS: Magnesium Oxide 400 MG TAB PO SCH (08:15)
[2020-09-08] MEDS: Metoprolol Tartrate 25 MG TAB PO SCH (08:15)
[2020-09-08] MEDS: Furosemide 20 MG TAB PO SCH (08:15)
[2020-09-08] MEDS: Folic Acid 1 MG TAB PO SCH (08:16)
[2020-09-08] MEDS: Thiamine 100 MG TAB PO SCH (08:16)
[2020-09-08] MEDS: hydrALAZINE 25 MG TAB PO SCH (08:16)
[2020-09-08] MEDS: Lisinopril 5 MG TAB PO SCH (08:16)
[2020-09-08] MEDS: Gemfibrozil 600 MG TAB PO SCH (08:16)
[2020-09-08 11:13] VITALS: BMI 31.7
[2020-09-08 14:53] VITALS: BP 120/72; TEMP 97.8
== END 2020-09-08 14:25 | disposition home or self-care (01) | DRG 242 ==
LOC: ERS 20:15 → ERHOLD 23:16 → CCU 09-02 08:26 → IMCU/EMU 09-05 18:55 → T4-A 09-06 12:22
PROVIDERS: ADMIT Internal Medicine; ATTEND Family Medicine
PROC: 5A09357 Assistance with Respiratory Ventilation, Less than 24 Consecutive Hours, Continuous Positive Airway Pressure (ICD-10-PCS; 2020-09-01)
PROC: 0JH606Z Insertion of Pacemaker, Dual Chamber into Chest Subcutaneous Tissue and Fascia, Open Approach (ICD-10-PCS; principal; 2020-09-02)
PROC: 02H63JZ Insertion of Pacemaker Lead into Right Atrium, Percutaneous Approach (ICD-10-PCS; 2020-09-02)
PROC: 02HK3JZ Insertion of Pacemaker Lead into Right Ventricle, Percutaneous Approach (ICD-10-PCS; 2020-09-02)
DX: R00.1 Bradycardia, unspecified (principal); G93.41 Metabolic encephalopathy; N17.9 Acute kidney failure, unspecified; L97.929 Non-pressure chronic ulcer of unspecified part of left lower leg with unspecified severity; E87.2 Acidosis; E87.1 Hypo-osmolality and hyponatremia; F10.131 Alcohol abuse with withdrawal delirium; E87.5 Hyperkalemia; E11.622 Type 2 diabetes mellitus with other skin ulcer; E66.01 Morbid (severe) obesity due to excess calories; J44.9 Chronic obstructive pulmonary disease, unspecified; G47.30 Sleep apnea, unspecified; I12.9 Hypertensive chronic kidney disease with stage 1 through stage 4 chronic kidney disease, or unspecified chronic kidney disease; E87.70 Fluid overload, unspecified; I95.89 Other hypotension; D53.9 Nutritional anemia, unspecified; E78.2 Mixed hyperlipidemia; E11.22 Type 2 diabetes mellitus with diabetic chronic kidney disease; Z20.822 Contact with and (suspected) exposure to COVID-19; N18.9 Chronic kidney disease, unspecified; E11.51 Type 2 diabetes mellitus with diabetic peripheral angiopathy without gangrene; Y90.0 Blood alcohol level of less than 20 mg/100 ml; Z79.02 Long term (current) use of antithrombotics/antiplatelets; Z89.511 Acquired absence of right leg below knee; Z68.31 Body mass index [BMI] 31.0-31.9, adult; Z71.6 Tobacco abuse counseling
CPT/HCPCS: 33208; 36415; 36416; 36600; 51701; 70450; 71045; 80048; 80053; 80306; 80307; 81003; 81015; 82533; 82550; 82805; 83605; 83690; 83735; 84443; 84484; 85025; 85610; 85730; 93005; 93010; 93306; 93798; 94640; 94644; 94660; 96365; 96366; 96367; 96375; 96376; C1785; C1898; J0360; J0461; J0690; J1265; J1580; J1720; J1815; J1940; J2001; J2060; J2250; J3411; J3475; J3490; J7042; J7611; J7620; P9047; U0002

== ENCOUNTER 2020-10-13 09:52 | Emergency (ER) | payer OTHER, MEDICARE ==
[2020-10-13 10:37] LABS: Hemoglobin 11.6 g/dL (14.0-18.0); Mean Corpuscular HGB CONC 33.5 g/dL (32.0-36.0); Mean Corpuscular Hemoglobin 35.8 pg (27.0-31.0); Platelet Count 249 thou/uL (130-400); RBC Distribution Width 13.5 % (11.5-14.5); Red Blood Cell (RBC) Count 3.25 mill/uL (4.70-6.10); White Blood Cell (WBC) Count 4.9 thou/uL (4.8-10.8)
[2020-10-13 11:19] LABS: Band 5 % (5-11); Eosinophils 4 % (0-10); Lymphocytes 29 % (21-51); MDiff Complete? YES; Monocytes 13 % (0-10); Neutrophil 48 % (42-75); Nucleated RBC 1 % (0); Platelet Morphology Comment Appears Adequate; Polychromasia SLIGHT = 2-3 cells (100X) (0-2/hpf)
[2020-10-13] MEDS ORDERED: Aspirin Chewable 81 MG TAB ONE (11:34)
[2020-10-13 13:19] LABS: ALT (SGPT) 32 U/L (8-55); AST (SGOT) 37 U/L (5-34); Albumin 3.9 g/dL (3.4-4.8); Alkaline Phosphatase 53 U/L (40-110); Anion Gap 14 mmol/L (10-20); BUN (Urea Nitrogen) 10 mg/dL (8.4-25.7); Bilirubin, Total 0.2 mg/dL (0.2-1.2); CK (CPK) 76 U/L (30-200); Calc. Creatinine Clearance 0 mL/min (70-130); Calcium 9.8 mg/dL (7.8-10.44); Carbon Dioxide 28 mmol/L (23-31); Chloride 100 mmol/L (98-107); Glucose 149 mg/dL (80-115); Potassium 5.2 mmol/L (3.5-5.1); Protein, Total 7.9 g/dL (5.8-8.1); Sodium 137 mmol/L (136-145)
== END 2020-10-13 13:50 | disposition home or self-care (01) ==
LOC: ERS 09:52
DX: R07.9 Chest pain, unspecified (principal); I10 Essential (primary) hypertension; E78.5 Hyperlipidemia, unspecified; I48.91 Unspecified atrial fibrillation; F17.210 Nicotine dependence, cigarettes, uncomplicated; Z79.84 Long term (current) use of oral hypoglycemic drugs; Z79.899 Other long term (current) drug therapy
CPT/HCPCS: 36415; 71045; 80053; 82550; 84484; 85025; 93005

== ENCOUNTER 2020-11-28 01:42 | Inpatient (IN) | payer MEDICARE, OTHER ==
[2020-11-28] MEDS ORDERED: Sucralfate 1 GM/10 ML UDCUP ONE (01:49)
[2020-11-28] MEDS ORDERED: Dextrose 50% Abboject 50 ML SYRINGE ONE ×2 (01:55→03:19)
[2020-11-28 02:42] LABS: #Lymphocytes 0.5 thou/uL (1.20-3.40); #Monocytes 0.4 thou/uL (0.11-0.59); %Basophils 0.1 % (0.0-1.0); %Eosinophils 0.5 % (0.0-10.0); %Lymphocytes 6.7 % (21.0-51.0); %Monocytes 5.8 % (0.0-10.0); %Neutrophils 86.9 % (42.0-75.0); Hemoglobin 11.9 g/dL (14.0-18.0); Mean Corpuscular HGB CONC 32.9 g/dL (32.0-36.0); Mean Corpuscular Hemoglobin 36.4 pg (27.0-31.0); Platelet Count 207 thou/uL (130-400); RBC Distribution Width 13.3 % (11.5-14.5); Red Blood Cell (RBC) Count 3.26 mill/uL (4.70-6.10); White Blood Cell (WBC) Count 6.9 thou/uL (4.8-10.8)
[2020-11-28 02:56] LABS: Bacteria/HPF None Seen HPF (None Seen); Bilirubin Negative (Negative); Blood, Urine 3+ (Negative); Clarity Turbid (Clear); Glucose, Urine (Dipstick) 30 mg/dL (Negative); Ketone, Urine Negative (Negative); Leukocyte Negative Leu/uL (Negative); Nitrite Negative (Negative); Protein, Urine (Dipstick) 70 mg/dL (Neg-Trace); RBC/HPF None Seen HPF (0-3); Specific Gravity, Urine 1.019 (1.002-1.036); Squamous Epithelial 0-3 HPF (0-3); Urobilinogen Normal mg/dL (Less than 2); WBC/HPF 0-3 HPF (0-3)
[2020-11-28 03:00] LABS: ALT (SGPT) 44 U/L (8-55); AST (SGOT) 92 U/L (5-34); Albumin 3.9 g/dL (3.4-4.8); Alcohol Less than 10 mg/dL (Less than 10); Alkaline Phosphatase 61 U/L (40-110); Anion Gap 26 mmol/L (10-20); BUN (Urea Nitrogen) 61 mg/dL (8.4-25.7); Bilirubin, Total 0.4 mg/dL (0.2-1.2); Calc. Creatinine Clearance 0 mL/min (70-130); Calcium 8.6 mg/dL (7.8-10.44); Carbon Dioxide 21 mmol/L (23-31); Chloride 91 mmol/L (98-107); Globulin 3.9 g/dL (2.4-3.5); Glucose 137 mg/dL (80-115); Protein, Total 7.8 g/dL (5.8-8.1); Sodium 131 mmol/L (136-145)
[2020-11-28 03:04] LABS: Potassium 6.6 mmol/L (3.5-5.1)
[2020-11-28] MEDS ORDERED: Clindamycin/D5W 600 mg/50 ml Premix Bag ONE (03:19)
[2020-11-28] MEDS ORDERED: Sodium Bicarb 50 MEQ/50 ML Abboject 8.4% SYRINGE ONE (03:19)
[2020-11-28] MEDS ORDERED: Insulin Regular 300 UNITS/3 ML VIAL ONE (03:19)
[2020-11-28] MEDS ORDERED: Calcium Chloride 1 GM/10 ML Abboject SYRINGE ONE (03:19)
[2020-11-28] MEDS ORDERED: Ondansetron PF 4 MG/2 ML Vial IVP PRN (05:08)
[2020-11-28] MEDS ORDERED: Pharmacy to Dose -VANCOMYCIN IVPB PRN (05:13)
[2020-11-28] MEDS ORDERED: Furosemide 100 MG/10 ML VIAL SLOW IVP SCH (05:15)
[2020-11-28] MEDS ORDERED: Vancomycin 1 GM in Premix Bag 1 BAG IVPB SCH ×3 (05:15→12:30)
[2020-11-28] MEDS: Dextrose 5 % And 0.9 % NaCl 1,000 ML IV SCH ×3 (05:40→21:15)
[2020-11-28 06:09] LABS: Anion Gap 28 mmol/L (10-20); BUN (Urea Nitrogen) 62 mg/dL (8.4-25.7); Calc. Creatinine Clearance 0 mL/min (70-130); Carbon Dioxide 19 mmol/L (23-31); Chloride 92 mmol/L (98-107); Glucose 112 mg/dL (80-115); Potassium 7.6 mmol/L (3.5-5.1); Sodium 131 mmol/L (136-145)
[2020-11-28] MEDS ORDERED: Dextrose 50% Abboject 50 ML SYRINGE SLOW IVP ONE (06:12)
[2020-11-28] MEDS ORDERED: Insulin Regular 300 UNITS/3 ML VIAL IVP SCH (06:15)
[2020-11-28] MEDS ORDERED: Calcium Gluconate 100 MG/ML 10 ML IVPB SCH (06:15)
[2020-11-28] MEDS ORDERED: Albuterol Sulfate 2.5 mg/3 ml Neb NEB SCH (06:30)
[2020-11-28] MEDS ORDERED: Norepinephrine 8 MG/0.9% NS 250 ML ONE (06:42)
[2020-11-28] MEDS ORDERED: Calcium Gluconate 9.2 MEQ in Sodium Chloride 0.9% 100 ML IVPB SCH (06:45)
[2020-11-28] MEDS ORDERED: Lorazepam 2 MG/ML VIAL ONE ×2 (06:53→09:25)
[2020-11-28 07:01] LABS: Actual Bicarbonate (HCO3a) 21.7 mEq/L (22-28); Analyzer IN Cardio ER; CO2 Tension 46.6 mmHg (35.0-45.0); Calcium, Ionized (arterial) 1.09 mmol/L (1.12-1.30); Carboxyhemoglobin (COHb) 0.8 gm% (0.0-3.0); Hemoglobin (Hb) 11.2 g/dL (14.0-18.0); Potassium - ABG Lab 6.24 mmol/L (3.70-5.30); pH, Arterial 7.29 (7.35-7.45)
[2020-11-28 07:13] LABS: O2 Tension (PaO2), arterial 59.7 mmHg (> 80.0); Puncture Site LBA
[2020-11-28] MEDS ORDERED: Lorazepam 2 MG/ML VIAL SLOW IVP SCH (07:30)
[2020-11-28 07:39] LABS: Potassium 7.7 mmol/L (3.5-5.1)
[2020-11-28 08:18] LABS: HBSAg Index 0.16 S/CO (0-0.99); Hep B Surf Ag Non-Reactive S/CO (NonReactive)
[2020-11-28] MEDS ORDERED: Heparin 10,000 UNITS/ 10 ML VIAL ONE (08:41)
[2020-11-28 10:34] LABS: SARS-CoV-2 NAA Rapid Test Not Detected (NotDetected)
[2020-11-28] MEDS: Heparin 5,000 UNITS/ML VIAL SC SCH ×2 (12:12→20:33)
[2020-11-28] MEDS: Nystatin Powder 15 GM BOT TOP SCH ×2 (12:12→20:50)
[2020-11-28] MEDS ORDERED: Vancomycin HCl 750 MG in Sodium Chloride 0.9% 250 ML 250 ML IVPB SCH (12:30)
[2020-11-28] MEDS ORDERED: Vancomycin HCl 1.25 GM in Sodium Chloride 0.9% 250 ML 250 ML IVPB SCH (12:30)
[2020-11-28] MEDS ORDERED: HOLD VANCOMYCIN FOR LEVEL >20 FS SCH (12:30)
[2020-11-28] MEDS ORDERED: Vancomycin HCl 1.5 GM in Sodium Chloride 0.9% 250 ML 300 ML IVPB SCH (12:30)
[2020-11-28] MEDS ORDERED: VANCOMYCIN 1.75 GM/350 ML BAG 1.75 GM in Premix Bag 1 BAG IVPB SCH (12:30)
[2020-11-28 13:08] LABS: Amphetamine Not Detected (NotDetected); Barbiturates Screen Not Detected (NotDetected); Benzodiazepine Screen Not Detected (NotDetected); Cocaine Metabolite Screen Not Detected (NotDetected); Medtox Control Line Valid? VALID (VALID); Medtox Reader # READER 1; Methadone Not Detected (NotDetected); Methamphetamine Not Detected (NotDetected); Opiate Screen Not Detected (NotDetected); Oxycodone Screen Not Detected (NotDetected); Phencyclidine (PCP) Not Detected (NotDetected); THC/Cannabinoid Screen Not Detected (NotDetected); Tricyclic Screen Not Detected (NotDetected)
[2020-11-28] MEDS ORDERED: Pantoprazole 80 MG in Sodium Chloride 0.9% 100 ML IVPB SCH (13:52)
[2020-11-28] MEDS ORDERED: Lorazepam 2 MG/ML VIAL SLOW IVP PRN ×2 (13:53→15:00)
[2020-11-28] MEDS ORDERED: Electrolyte Replacement Protocol 1 EACH FS ONE (13:54)
[2020-11-28] MEDS ORDERED: Thiamine HCl 200 MG/2 ML VIAL SLOW IVP SCH (14:00)
[2020-11-28] MEDS ORDERED: Octreotide Acetate 1,250 MCG in Sodium Chloride 0.9% 250 ML 250 ML IVPB SCH (14:00)
[2020-11-28 14:16] LABS: Hemoglobin 11.2 g/dL (14.0-18.0); Platelet Count 182 thou/uL (130-400)
[2020-11-28 14:43] LABS: Anion Gap 22 mmol/L (10-20); BUN (Urea Nitrogen) 37 mg/dL (8.4-25.7); Calc. Creatinine Clearance 39 mL/min (70-130); Carbon Dioxide 20 mmol/L (23-31); Chloride 98 mmol/L (98-107); Glucose 129 mg/dL (80-115); Potassium 5.1 mmol/L (3.5-5.1); Sodium 135 mmol/L (136-145)
[2020-11-28] MEDS ORDERED: Morphine 2 MG/ML VIAL SLOW IVP PRN (15:00)
[2020-11-28] MEDS ORDERED: Fentanyl BOLUS 250 ML IVPB PRN ×2 (15:00)
[2020-11-28] MEDS ORDERED: DISCONTINUE PREVIOUS NARCOTIC PAIN MEDICATIONS AND BENZODIAZEPINES FS SCH ×2 (15:00)
[2020-11-28] MEDS ORDERED: Fentanyl CADD 100 ML IV SCH (15:00)
[2020-11-28] MEDS ORDERED: Propofol 1,000 MG/100 ML VIAL IV PRN (15:00)
[2020-11-28] MEDS ORDERED: Propofol BOLUS 1,000 MG/100 ML VIAL IV PRN ×2 (15:00)
[2020-11-28] MEDS: Multivitamins, Adult 10 ML, Folic Acid 1 MG, Thiamine HCl 100 MG in Dextrose 5 %-0.45 %... IV SCH (15:32)
[2020-11-28 15:39] LABS: Actual Bicarbonate (HCO3a) 21.9 mEq/L (22-28); CO2 Tension 53.9 mmHg (35.0-45.0); Calcium, Ionized (arterial) 1.08 mmol/L (1.12-1.30); Carboxyhemoglobin (COHb) 0.8 gm% (0.0-3.0); Hemoglobin (Hb) 11.7 g/dL (14.0-18.0); O2 Tension (PaO2), arterial 72.6 mmHg (> 80.0); Potassium - ABG Lab 5.23 mmol/L (3.70-5.30)
[2020-11-28 15:42] LABS: pH, Arterial 7.23 (7.35-7.45)
[2020-11-28 15:43] LABS: ALV-art Gradient 145.225 mmHg (0-20); Puncture Site RRA
[2020-11-28] MEDS ORDERED: Fentanyl CADD 100 ML ONE (16:12)
[2020-11-28] MEDS: Fentanyl CADD 100 ML IV SCH (16:16)
[2020-11-28] MEDS: Cefepime 1 GM in Sodium Chloride 0.9% 100 ML IVPB SCH (16:21)
[2020-11-28] MEDS: methylPREDNISolone Sod Succ 40 MG VIAL IVP SCH (17:15)
[2020-11-28] MEDS: Norepinephrine 8 MG/0.9% NS 250 ML IVPB SCH (17:59)
[2020-11-28] MEDS ORDERED: Pantoprazole 40 MG VIAL IVP SCH ×2 (18:45→21:00)
[2020-11-28] MEDS: Acetaminophen 325 MG TAB PO PRN (21:07)
[2020-11-29] MEDS: methylPREDNISolone Sod Succ 40 MG VIAL IVP SCH ×3 (00:01→20:12)
[2020-11-29 00:34] LABS: Glucose 289 mg/dL (80-115)
[2020-11-29] MEDS: HumaLOG 300 UNITS/3 ML VIAL SC PRN ×5 (01:07→21:22)
[2020-11-29] MEDS: Norepinephrine 8 MG/0.9% NS 250 ML IVPB SCH ×2 (01:07→20:36)
[2020-11-29] MEDS: Lorazepam 2 MG/ML VIAL SLOW IVP PRN ×3 (01:07→18:06)
[2020-11-29] MEDS: Cefepime 1 GM in Sodium Chloride 0.9% 100 ML IVPB SCH ×2 (02:50→14:40)
[2020-11-29 03:45] LABS: Hemoglobin 10.8 g/dL (14.0-18.0); Mean Corpuscular HGB CONC 32.1 g/dL (32.0-36.0); Mean Corpuscular Hemoglobin 35.4 pg (27.0-31.0); Mean Platelet Volume 8.9 fL (7.4-10.4); Platelet Count 214 thou/uL (130-400); RBC Distribution Width 13.3 % (11.5-14.5); Red Blood Cell (RBC) Count 3.05 mill/uL (4.70-6.10); White Blood Cell (WBC) Count 8.8 thou/uL (4.8-10.8)
[2020-11-29 03:53] LABS: INR-International Normal Ratio 1.2
[2020-11-29 04:06] LABS: ALT (SGPT) 31 U/L (8-55); AST (SGOT) 41 U/L (5-34); Albumin 3.1 g/dL (3.4-4.8); Alkaline Phosphatase 49 U/L (40-110); Anion Gap 23 mmol/L (10-20); BUN (Urea Nitrogen) 40 mg/dL (8.4-25.7); Bilirubin, Total 0.2 mg/dL (0.2-1.2); Calc. Creatinine Clearance 40 mL/min (70-130); Calcium 7.6 mg/dL (7.8-10.44); Carbon Dioxide 19 mmol/L (23-31); Chloride 98 mmol/L (98-107); Globulin 3.3 g/dL (2.4-3.5); Glucose 313 mg/dL (80-115); Potassium 5.6 mmol/L (3.5-5.1); Protein, Total 6.4 g/dL (5.8-8.1); Sodium 134 mmol/L (136-145)
[2020-11-29 04:19] LABS: Band 31 % (5-11); Lymphocytes 2 % (21-51); MDiff Complete? YES; Macrocytosis SLIGHT = 6-15 cells (100X) (0-5/hpf); Metamyelocyte 1 % (0-0); Monocytes 9 % (0-10); Neutrophil 57 % (42-75)
[2020-11-29] MEDS: Acetaminophen 325 MG TAB PO PRN (05:01)
[2020-11-29] MEDS: Dextrose 5 % And 0.9 % NaCl 1,000 ML IV SCH (06:10)
[2020-11-29] MEDS: Propofol 1,000 MG/100 ML VIAL IV PRN ×5 (06:31→22:14)
[2020-11-29 07:16] LABS: Actual Bicarbonate (HCO3a) 19.3 mEq/L (22-28); Base Excess (BEa) -7.5 mEq/L (-2.0 to +3.0); CO2 Tension 43.4 mmHg (35.0-45.0); Calcium, Ionized (arterial) 1.07 mmol/L (1.12-1.30); Carboxyhemoglobin (COHb) 0.4 gm% (0.0-3.0); Hemoglobin (Hb) 18.5 g/dL (14.0-18.0); O2 Tension (PaO2), arterial 64.5 mmHg (> 80.0); Potassium - ABG Lab 5.27 mmol/L (3.70-5.30); pH, Arterial 7.27 (7.35-7.45)
[2020-11-29 07:18] LABS: Glucose 350 mg/dL (80-115)
[2020-11-29 07:38] LABS: Puncture Site RRA
[2020-11-29] MEDS ORDERED: Heparin 10,000 UNITS/ 10 ML VIAL ONE (08:45)
[2020-11-29] MEDS: Pantoprazole 40 MG VIAL IVP SCH ×2 (09:18→20:12)
[2020-11-29] MEDS: Heparin 5,000 UNITS/ML VIAL SC SCH ×2 (09:18→20:13)
[2020-11-29] MEDS: Nystatin Powder 15 GM BOT TOP SCH ×2 (09:19→20:13)
[2020-11-29] MEDS ORDERED: Dextrose 5% in Water 1,000 ML IV PRN (09:47)
[2020-11-29] MEDS ORDERED: Dextrose 50% Abboject 50 ML SYRINGE SLOW IVP PRN (09:47)
[2020-11-29] MEDS: Sodium Chloride 0.9% 1,000 ML IV SCH (10:56)
[2020-11-29] MEDS: Multivitamins, Adult 10 ML, Folic Acid 1 MG, Thiamine HCl 100 MG in Dextrose 5 %-0.45 %... IV SCH ×2 (15:59→17:56)
[2020-11-29] MEDS ORDERED: Fentanyl CADD 100 ML ONE (17:39)
[2020-11-30] MEDS: Sodium Chloride 0.9% 1,000 ML IV SCH (00:18)
[2020-11-30] MEDS: Cefepime 1 GM in Sodium Chloride 0.9% 100 ML IVPB SCH ×2 (03:34→14:31)
[2020-11-30] MEDS: Lorazepam 2 MG/ML VIAL SLOW IVP PRN ×2 (03:34→09:33)
[2020-11-30] MEDS: Propofol 1,000 MG/100 ML VIAL IV PRN ×5 (03:34→19:50)
[2020-11-30 04:48] LABS: #Lymphocytes 0.5 thou/uL (1.20-3.40); #Monocytes 0.7 thou/uL (0.11-0.59); #Neutrophils 4.4 thou/uL (1.40-6.50); %Lymphocytes 8.9 % (21.0-51.0); %Monocytes 12.2 % (0.0-10.0); %Neutrophils 78.9 % (42.0-75.0); Hemoglobin 9.2 g/dL (14.0-18.0); Mean Corpuscular HGB CONC 33.9 g/dL (32.0-36.0); Mean Corpuscular Hemoglobin 36.3 pg (27.0-31.0); Mean Platelet Volume 8.6 fL (7.4-10.4); Platelet Count 156 thou/uL (130-400); RBC Distribution Width 13.2 % (11.5-14.5); Red Blood Cell (RBC) Count 2.54 mill/uL (4.70-6.10); White Blood Cell (WBC) Count 5.6 thou/uL (4.8-10.8)
[2020-11-30 05:29] LABS: Anion Gap 15 mmol/L (10-20); BUN (Urea Nitrogen) 33 mg/dL (8.4-25.7); Calc. Creatinine Clearance 68 mL/min (70-130); Calcium 7.6 mg/dL (7.8-10.44); Carbon Dioxide 26 mmol/L (23-31); Chloride 99 mmol/L (98-107); Glucose 295 mg/dL (80-115); Sodium 136 mmol/L (136-145)
[2020-11-30 05:48] LABS: Lipase 35 U/L (8-78)
[2020-11-30] MEDS ORDERED: Fentanyl CADD 100 ML ONE ×2 (05:54→19:18)
[2020-11-30] MEDS: Fentanyl CADD 100 ML IV SCH ×2 (05:57→19:26)
[2020-11-30] MEDS: HumaLOG 300 UNITS/3 ML VIAL SC PRN ×3 (05:57→23:24)
[2020-11-30 07:48] LABS: Actual Bicarbonate (HCO3a) 23.6 mEq/L (22-28); CO2 Tension 39.2 mmHg (35.0-45.0); Calcium, Ionized (arterial) 1.04 mmol/L (1.12-1.30); Carboxyhemoglobin (COHb) 0.2 gm% (0.0-3.0); Hemoglobin (Hb) 10.3 g/dL (14.0-18.0); Potassium - ABG Lab 3.88 mmol/L (3.70-5.30)
[2020-11-30 08:13] LABS: O2 Tension (PaO2), arterial 58.1 mmHg (> 80.0); Puncture Site RBA
[2020-11-30] MEDS: methylPREDNISolone Sod Succ 40 MG VIAL IVP SCH ×2 (08:58→20:20)
[2020-11-30] MEDS: Pantoprazole 40 MG VIAL IVP SCH ×2 (09:00→20:20)
[2020-11-30] MEDS: Heparin 5,000 UNITS/ML VIAL SC SCH ×2 (09:03→20:19)
[2020-11-30] MEDS: Thiamine HCl 200 MG/2 ML VIAL SLOW IVP SCH (09:05)
[2020-11-30] MEDS: NPH, Human Insulin Isophane 300 UNIT/3 ML VIAL SC SCH (09:07)
[2020-11-30] MEDS: Nystatin Powder 15 GM BOT TOP SCH ×2 (09:07→20:21)
[2020-11-30 12:13] LABS: Vancomycin, Random 16.5 ug/mL (See Comment)
[2020-11-30] MEDS: Vancomycin 1.5 GRAM/300 ML BAG 1.5 GM in Premix Bag 1 BAG IVPB SCH (12:45)
[2020-11-30] MEDS: Multivitamins, Adult 10 ML, Folic Acid 1 MG, Thiamine HCl 100 MG in Dextrose 5 %-0.45 %... IV SCH (15:10)
[2020-12-01] MEDS: Propofol 1,000 MG/100 ML VIAL IV PRN ×5 (00:13→19:54)
[2020-12-01] MEDS: Lorazepam 2 MG/ML VIAL SLOW IVP PRN ×5 (01:24→21:45)
[2020-12-01] MEDS: Cefepime 1 GM in Sodium Chloride 0.9% 100 ML IVPB SCH ×2 (02:24→15:26)
[2020-12-01 04:40] LABS: Hemoglobin 9.6 g/dL (14.0-18.0); Mean Corpuscular HGB CONC 32.5 g/dL (32.0-36.0); Mean Corpuscular Hemoglobin 34.7 pg (27.0-31.0); Mean Platelet Volume 8.8 fL (7.4-10.4); Platelet Count 183 thou/uL (130-400); RBC Distribution Width 13.4 % (11.5-14.5); Red Blood Cell (RBC) Count 2.76 mill/uL (4.70-6.10); White Blood Cell (WBC) Count 8.8 thou/uL (4.8-10.8)
[2020-12-01 04:47] LABS: Anion Gap 15 mmol/L (10-20); BUN (Urea Nitrogen) 38 mg/dL (8.4-25.7); Calc. Creatinine Clearance 76 mL/min (70-130); Calcium 8.1 mg/dL (7.8-10.44); Carbon Dioxide 26 mmol/L (23-31); Chloride 103 mmol/L (98-107); Glucose 219 mg/dL (80-115); Potassium 4.4 mmol/L (3.5-5.1); Sodium 140 mmol/L (136-145)
[2020-12-01] MEDS: HumaLOG 300 UNITS/3 ML VIAL SC PRN ×3 (05:03→22:12)
[2020-12-01] MEDS: hydrALAZINE 20 MG/ML VIAL SLOW IVP PRN ×2 (05:08→11:32)
[2020-12-01 05:23] LABS: Band 15 % (5-11); Lymphocytes 5 % (21-51); MDiff Complete? YES; Macrocytosis SLIGHT = 6-15 cells (100X) (0-5/hpf); Monocytes 13 % (0-10); Myelocyte 2 % (0-0); Neutrophil 65 % (42-75)
[2020-12-01 07:00] LABS: Actual Bicarbonate (HCO3a) 26.5 mEq/L (22-28); Base Excess (BEa) 1.9 mEq/L (-2.0 to +3.0); CO2 Tension 41.4 mmHg (35.0-45.0); Carboxyhemoglobin (COHb) 0.3 gm% (0.0-3.0); Hemoglobin (Hb) 10.4 g/dL (14.0-18.0); O2 Tension (PaO2), arterial 66.2 mmHg (> 80.0); Potassium - ABG Lab 4.02 mmol/L (3.70-5.30); pH, Arterial 7.42 (7.35-7.45)
[2020-12-01 07:02] LABS: Puncture Site RRA
[2020-12-01] MEDS ORDERED: Fentanyl CADD 100 ML ONE ×2 (08:02→18:01)
[2020-12-01] MEDS: Thiamine HCl 200 MG/2 ML VIAL SLOW IVP SCH (09:17)
[2020-12-01] MEDS: methylPREDNISolone Sod Succ 40 MG VIAL IVP SCH ×2 (09:19→21:47)
[2020-12-01] MEDS: Heparin 5,000 UNITS/ML VIAL SC SCH ×2 (09:19→21:48)
[2020-12-01] MEDS: Pantoprazole 40 MG VIAL IVP SCH (09:21)
[2020-12-01] MEDS: NPH, Human Insulin Isophane 300 UNIT/3 ML VIAL SC SCH (09:23)
[2020-12-01] MEDS: Metoprolol Tartrate 25 MG TAB PER TUBE SCH ×2 (09:24→21:48)
[2020-12-01] MEDS: Lisinopril 20 MG TAB PER TUBE SCH (09:26)
[2020-12-01] MEDS: Nystatin Powder 15 GM BOT TOP SCH ×2 (09:48→21:48)
[2020-12-01] MEDS ORDERED: Ketamine 50 MG/ML (10ML VIAL) ONE (10:16)
[2020-12-01] MEDS ORDERED: Midazolam HCl 2 mg/2 ml Vial ONE (10:16)
[2020-12-01] MEDS ORDERED: Rocuronium Bromide 10 MG/ML (10ML VIAL) ONE (10:30)
[2020-12-01] MEDS ORDERED: Pantoprazole 80 MG in Sodium Chloride 0.9% 100 ML IVPB SCH (11:00)
[2020-12-01] MEDS: Morphine 2 MG/ML VIAL SLOW IVP PRN (11:35)
[2020-12-01] MEDS: Pantoprazole 80 MG, Admixture Fee 1 EACH in Sodium Chloride 0.9% 100 ML IVPB SCH ×2 (12:46→23:32)
[2020-12-01] MEDS: Vancomycin 1.5 GRAM/300 ML BAG 1.5 GM in Premix Bag 1 BAG IVPB SCH (13:27)
[2020-12-01] MEDS: Multivitamins, Adult 10 ML, Folic Acid 1 MG, Thiamine HCl 100 MG in Dextrose 5 %-0.45 %... IV SCH (16:12)
[2020-12-01] MEDS: Fentanyl CADD 100 ML IV SCH (18:03)
[2020-12-02] MEDS: Propofol 1,000 MG/100 ML VIAL IV PRN ×5 (01:08→19:44)
[2020-12-02] MEDS: Cefepime 1 GM in Sodium Chloride 0.9% 100 ML IVPB SCH ×2 (02:11→13:52)
[2020-12-02] MEDS: hydrALAZINE 20 MG/ML VIAL SLOW IVP PRN ×2 (03:05→13:33)
[2020-12-02] MEDS: Lorazepam 2 MG/ML VIAL SLOW IVP PRN ×7 (03:55→23:06)
[2020-12-02 03:57] LABS: Anion Gap 15 mmol/L (10-20); BUN (Urea Nitrogen) 35 mg/dL (8.4-25.7); Calc. Creatinine Clearance 99 mL/min (70-130); Calcium 8.5 mg/dL (7.8-10.44); Carbon Dioxide 25 mmol/L (23-31); Chloride 108 mmol/L (98-107); Glucose 175 mg/dL (80-115); Potassium 4.4 mmol/L (3.5-5.1); Sodium 144 mmol/L (136-145)
[2020-12-02 05:13] LABS: Band 14 % (5-11); Hemoglobin 9.6 g/dL (14.0-18.0); Lymphocytes 14 % (21-51); MDiff Complete? YES; Mean Corpuscular HGB CONC 32.5 g/dL (32.0-36.0); Mean Corpuscular Hemoglobin 35.1 pg (27.0-31.0); Mean Platelet Volume 9.1 fL (7.4-10.4); Monocytes 12 % (0-10); Myelocyte 1 % (0-0); Neutrophil 59 % (42-75); Nucleated RBC 1 % (0); Platelet Count 196 thou/uL (130-400); RBC Distribution Width 13.5 % (11.5-14.5); Red Blood Cell (RBC) Count 2.73 mill/uL (4.70-6.10); White Blood Cell (WBC) Count 9.5 thou/uL (4.8-10.8)
[2020-12-02] MEDS ORDERED: Fentanyl CADD 100 ML ONE ×2 (06:29→20:44)
[2020-12-02] MEDS: Fentanyl CADD 100 ML IV SCH ×2 (06:33→20:50)
[2020-12-02 07:13] LABS: Actual Bicarbonate (HCO3a) 26.3 mEq/L (22-28); Base Excess (BEa) 0.9 mEq/L (-2.0 to +3.0); CO2 Tension 45.2 mmHg (35.0-45.0); Calcium, Ionized (arterial) 1.16 mmol/L (1.12-1.30); Carboxyhemoglobin (COHb) 0.3 gm% (0.0-3.0); O2 Tension (PaO2), arterial 78.6 mmHg (> 80.0); Potassium - ABG Lab 4.42 mmol/L (3.70-5.30); pH, Arterial 7.38 (7.35-7.45)
[2020-12-02 07:21] LABS: Puncture Site RRA
[2020-12-02] MEDS: Heparin 5,000 UNITS/ML VIAL SC SCH ×2 (07:23→20:51)
[2020-12-02] MEDS: methylPREDNISolone Sod Succ 40 MG VIAL IVP SCH ×2 (07:23→20:51)
[2020-12-02] MEDS: Lisinopril 20 MG TAB PER TUBE SCH (07:24)
[2020-12-02] MEDS: Metoprolol Tartrate 25 MG TAB PER TUBE SCH ×2 (07:24→20:50)
[2020-12-02] MEDS: Thiamine HCl 200 MG/2 ML VIAL SLOW IVP SCH (07:25)
[2020-12-02] MEDS: NPH, Human Insulin Isophane 300 UNIT/3 ML VIAL SC SCH (07:25)
[2020-12-02] MEDS: Nystatin Powder 15 GM BOT TOP SCH ×2 (07:26→20:52)
[2020-12-02] MEDS: Pantoprazole 80 MG, Admixture Fee 1 EACH in Sodium Chloride 0.9% 100 ML IVPB SCH (10:07)
[2020-12-02 12:41] LABS: Vancomycin, Trough 20.8 ug/mL
[2020-12-02] MEDS ORDERED: VANCOMYCIN 1.25 GM/250 ML BAG 1.25 GM in Premix Bag 1 BAG IVPB SCH (13:00)
[2020-12-02] MEDS: Multivitamins, Adult 10 ML, Folic Acid 1 MG, Thiamine HCl 100 MG in Dextrose 5 %-0.45 %... IV SCH (13:49)
[2020-12-02] MEDS: Morphine 2 MG/ML VIAL SLOW IVP PRN (14:58)
[2020-12-03] MEDS: Propofol 1,000 MG/100 ML VIAL IV PRN ×6 (00:28→22:50)
[2020-12-03] MEDS: Cefepime 1 GM in Sodium Chloride 0.9% 100 ML IVPB SCH ×2 (02:16→14:16)
[2020-12-03] MEDS: hydrALAZINE 20 MG/ML VIAL SLOW IVP PRN ×2 (02:17→21:47)
[2020-12-03] MEDS: Lorazepam 2 MG/ML VIAL SLOW IVP PRN ×8 (02:45→22:42)
[2020-12-03 04:29] LABS: Hemoglobin 9.4 g/dL (14.0-18.0); Mean Corpuscular Hemoglobin 34.4 pg (27.0-31.0); Mean Platelet Volume 9.1 fL (7.4-10.4); Platelet Count 217 thou/uL (130-400); RBC Distribution Width 13.7 % (11.5-14.5); Red Blood Cell (RBC) Count 2.72 mill/uL (4.70-6.10); White Blood Cell (WBC) Count 10.9 thou/uL (4.8-10.8)
[2020-12-03 04:51] LABS: Anion Gap 13 mmol/L (10-20); BUN (Urea Nitrogen) 38 mg/dL (8.4-25.7); Calc. Creatinine Clearance 114 mL/min (70-130); Carbon Dioxide 25 mmol/L (23-31); Chloride 111 mmol/L (98-107); Glucose 176 mg/dL (80-115); Potassium 4.4 mmol/L (3.5-5.1); Sodium 145 mmol/L (136-145)
[2020-12-03 04:54] LABS: Band 11 % (5-11); Lymphocytes 5 % (21-51); MDiff Complete? YES; Metamyelocyte 2 % (0-0); Monocytes 9 % (0-10); Myelocyte 4 % (0-0); Neutrophil 69 % (42-75); Nucleated RBC 1 % (0)
[2020-12-03] MEDS: Pantoprazole 80 MG, Admixture Fee 1 EACH in Sodium Chloride 0.9% 100 ML IVPB SCH ×2 (05:51→20:11)
[2020-12-03] MEDS: HumaLOG 300 UNITS/3 ML VIAL SC PRN (05:52)
[2020-12-03 07:14] LABS: Actual Bicarbonate (HCO3a) 24.4 mEq/L (22-28); Base Excess (BEa) -0.9 mEq/L (-2.0 to +3.0); CO2 Tension 42.8 mmHg (35.0-45.0); Calcium, Ionized (arterial) 1.26 mmol/L (1.12-1.30); Carboxyhemoglobin (COHb) 0.4 gm% (0.0-3.0); Hemoglobin (Hb) 9.7 g/dL (14.0-18.0); O2 Tension (PaO2), arterial 77.4 mmHg (> 80.0); Potassium - ABG Lab 4.45 mmol/L (3.70-5.30); pH, Arterial 7.37 (7.35-7.45)
[2020-12-03] MEDS: Metoprolol Tartrate 25 MG TAB PER TUBE SCH ×2 (07:15→20:24)
[2020-12-03] MEDS: Lisinopril 20 MG TAB PER TUBE SCH (07:15)
[2020-12-03 07:16] LABS: Puncture Site RRA
[2020-12-03] MEDS: Heparin 5,000 UNITS/ML VIAL SC SCH ×2 (07:16→20:24)
[2020-12-03] MEDS: methylPREDNISolone Sod Succ 40 MG VIAL IVP SCH ×2 (07:16→08:46)
[2020-12-03] MEDS: Thiamine HCl 200 MG/2 ML VIAL SLOW IVP SCH (07:16)
[2020-12-03] MEDS: NPH, Human Insulin Isophane 300 UNIT/3 ML VIAL SC SCH (07:20)
[2020-12-03] MEDS ORDERED: Vecuronium 10 MG VIAL IVP PRN (08:39)
[2020-12-03] MEDS ORDERED: Furosemide 40 MG/4 ML VIAL SLOW IVP SCH (08:45)
[2020-12-03] MEDS: Nystatin Powder 15 GM BOT TOP SCH ×2 (08:49→21:46)
[2020-12-03] MEDS ORDERED: Fentanyl CADD 100 ML ONE (08:55)
[2020-12-03] MEDS: Fentanyl CADD 100 ML IV SCH (08:57)
[2020-12-03] MEDS ORDERED: Magnevist 469MG/ML 20 ML VIAL ONE (10:34)
[2020-12-04] MEDS ORDERED: Fentanyl CADD 100 ML ONE ×2 (00:35→11:10)
[2020-12-04] MEDS: Fentanyl CADD 100 ML IV SCH ×2 (01:03→11:10)
[2020-12-04] MEDS: Lorazepam 2 MG/ML VIAL SLOW IVP PRN ×5 (01:05→23:46)
[2020-12-04] MEDS: Propofol 1,000 MG/100 ML VIAL IV PRN ×7 (02:17→23:45)
[2020-12-04] MEDS: Cefepime 1 GM in Sodium Chloride 0.9% 100 ML IVPB SCH ×2 (03:20→15:02)
[2020-12-04 04:22] LABS: Anion Gap 12 mmol/L (10-20); BUN (Urea Nitrogen) 37 mg/dL (8.4-25.7); Calc. Creatinine Clearance 121 mL/min (70-130); Calcium 9.9 mg/dL (7.8-10.44); Carbon Dioxide 25 mmol/L (23-31); Chloride 114 mmol/L (98-107); Glucose 148 mg/dL (80-115); Potassium 3.8 mmol/L (3.5-5.1); Sodium 147 mmol/L (136-145)
[2020-12-04 04:37] LABS: Band 7 % (5-11); Eosinophils 4 % (0-10); Hemoglobin 9.8 g/dL (14.0-18.0); Lymphocytes 16 % (21-51); MDiff Complete? YES; Mean Corpuscular HGB CONC 33.6 g/dL (32.0-36.0); Mean Corpuscular Hemoglobin 36.2 pg (27.0-31.0); Mean Platelet Volume 9.3 fL (7.4-10.4); Monocytes 8 % (0-10); Myelocyte 4 % (0-0); Neutrophil 61 % (42-75); Platelet Count 219 thou/uL (130-400); RBC Distribution Width 13.7 % (11.5-14.5); White Blood Cell (WBC) Count 11.2 thou/uL (4.8-10.8)
[2020-12-04] MEDS: Pantoprazole 80 MG, Admixture Fee 1 EACH in Sodium Chloride 0.9% 100 ML IVPB SCH (06:13)
[2020-12-04] MEDS: Heparin 5,000 UNITS/ML VIAL SC SCH ×2 (07:10→20:02)
[2020-12-04] MEDS: methylPREDNISolone Sod Succ 40 MG VIAL IVP SCH (07:11)
[2020-12-04] MEDS: Lisinopril 20 MG TAB PER TUBE SCH (07:11)
[2020-12-04] MEDS: NPH, Human Insulin Isophane 300 UNIT/3 ML VIAL SC SCH (07:12)
[2020-12-04 07:36] LABS: Actual Bicarbonate (HCO3a) 24.4 mEq/L (22-28); Base Excess (BEa) -0.5 mEq/L (-2.0 to +3.0); CO2 Tension 41.4 mmHg (35.0-45.0); Calcium, Ionized (arterial) 1.35 mmol/L (1.12-1.30); Carboxyhemoglobin (COHb) 0.3 gm% (0.0-3.0); Hemoglobin (Hb) 9.9 g/dL (14.0-18.0); O2 Tension (PaO2), arterial 147.3 mmHg (> 80.0); Potassium - ABG Lab 3.88 mmol/L (3.70-5.30); pH, Arterial 7.39 (7.35-7.45)
[2020-12-04 07:39] LABS: Puncture Site RBA
[2020-12-04] MEDS: Thiamine HCl 200 MG/2 ML VIAL SLOW IVP SCH (07:46)
[2020-12-04] MEDS: Metoprolol Tartrate 25 MG TAB PER TUBE SCH ×2 (07:47→20:02)
[2020-12-04] MEDS: Nystatin Powder 15 GM BOT TOP SCH ×2 (07:47→21:45)
[2020-12-04] MEDS: HumaLOG 300 UNITS/3 ML VIAL SC PRN (10:01)
[2020-12-04] MEDS ORDERED: Sodium Chloride 0.9% (PF) 10 ML VIAL FS PRN (13:00)
[2020-12-04] MEDS: hydrALAZINE 20 MG/ML VIAL SLOW IVP PRN ×2 (13:49→17:29)
[2020-12-04 18:37] LABS: H. pylori IgA ABS Less than 9.0 units (0.0-8.9); H. pylori IgG ABS 0.58 (0.00-0.79); H. pylori IgM ABS Less than 9.0 units (0.0-8.9)
[2020-12-04] MEDS: Pantoprazole 40 MG GRANULES PACKET PER TUBE SCH (20:02)
[2020-12-05] MEDS: hydrALAZINE 20 MG/ML VIAL SLOW IVP PRN ×5 (01:42→20:11)
[2020-12-05] MEDS ORDERED: Fentanyl CADD 100 ML ONE ×2 (02:18→22:47)
[2020-12-05] MEDS: Fentanyl CADD 100 ML IV SCH (02:30)
[2020-12-05] MEDS: Cefepime 1 GM in Sodium Chloride 0.9% 100 ML IVPB SCH ×2 (02:34→14:32)
[2020-12-05] MEDS: Lorazepam 2 MG/ML VIAL SLOW IVP PRN ×6 (02:41→18:22)
[2020-12-05 04:59] LABS: Anion Gap 12 mmol/L (10-20); BUN (Urea Nitrogen) 31 mg/dL (8.4-25.7); Calc. Creatinine Clearance 137 mL/min (70-130); Calcium 10.2 mg/dL (7.8-10.44); Carbon Dioxide 27 mmol/L (23-31); Chloride 116 mmol/L (98-107); Glucose 165 mg/dL (80-115); Potassium 3.9 mmol/L (3.5-5.1); Sodium 151 mmol/L (136-145)
[2020-12-05 05:09] LABS: Band 2 % (5-11); Hypochromia SLIGHT = 6-15 cells (100X) (0-5/hpf); Lymphocytes 15 % (21-51); MDiff Complete? YES; Macrocytosis SLIGHT = 6-15 cells (100X) (0-5/hpf); Mean Corpuscular HGB CONC 30.8 g/dL (32.0-36.0); Mean Corpuscular Hemoglobin 32.9 pg (27.0-31.0); Mean Platelet Volume 9.7 fL (7.4-10.4); Metamyelocyte 2 % (0-0); Monocytes 12 % (0-10); Neutrophil 69 % (42-75); Platelet Count 242 thou/uL (130-400); Platelet Morphology Comment Appears Adequate; RBC Distribution Width 13.7 % (11.5-14.5); Red Blood Cell (RBC) Count 3.04 mill/uL (4.70-6.10); White Blood Cell (WBC) Count 11.2 thou/uL (4.8-10.8)
[2020-12-05 07:07] LABS: Actual Bicarbonate (HCO3a) 24.3 mEq/L (22-28); Base Excess (BEa) -0.1 mEq/L (-2.0 to +3.0); Calcium, Ionized (arterial) 1.36 mmol/L (1.12-1.30); Carboxyhemoglobin (COHb) 0.3 gm% (0.0-3.0); Hemoglobin (Hb) 10.7 g/dL (14.0-18.0); O2 Tension (PaO2), arterial 68.3 mmHg (> 80.0); Potassium - ABG Lab 3.87 mmol/L (3.70-5.30); pH, Arterial 7.41 (7.35-7.45)
[2020-12-05 07:18] LABS: Puncture Site RBA
[2020-12-05] MEDS: HumaLOG 300 UNITS/3 ML VIAL SC PRN (07:42)
[2020-12-05] MEDS: Lisinopril 20 MG TAB PER TUBE SCH (10:11)
[2020-12-05] MEDS: Metoprolol Tartrate 25 MG TAB PER TUBE SCH ×2 (10:11→20:12)
[2020-12-05] MEDS: Heparin 5,000 UNITS/ML VIAL SC SCH ×2 (10:11→20:12)
[2020-12-05] MEDS: Nystatin Powder 15 GM BOT TOP SCH ×2 (10:13→20:12)
[2020-12-05] MEDS: NPH, Human Insulin Isophane 300 UNIT/3 ML VIAL SC SCH (10:14)
[2020-12-05] MEDS: Thiamine HCl 200 MG/2 ML VIAL SLOW IVP SCH (10:16)
[2020-12-05] MEDS ORDERED: Sodium Chloride 0.45% 1,000 ML IV SCH (14:15)
[2020-12-05] MEDS: Acetaminophen 325 MG TAB PO PRN (16:29)
[2020-12-05] MEDS: Labetalol HCl 100 MG/20 ML VIAL SLOW IVP PRN (16:32)
[2020-12-05] MEDS: Propofol 1,000 MG/100 ML VIAL IV PRN (18:21)
[2020-12-05] MEDS: Pantoprazole 40 MG GRANULES PACKET PER TUBE SCH (20:12)
[2020-12-06] MEDS: Acetaminophen 325 MG TAB PO PRN (00:31)
[2020-12-06] MEDS: hydrALAZINE 20 MG/ML VIAL SLOW IVP PRN (01:25)
[2020-12-06] MEDS: Propofol 1,000 MG/100 ML VIAL IV PRN ×6 (02:21→23:07)
[2020-12-06 03:56] LABS: Hemoglobin 10.1 g/dL (14.0-18.0); Mean Corpuscular HGB CONC 31.9 g/dL (32.0-36.0); Mean Corpuscular Hemoglobin 33.7 pg (27.0-31.0); Mean Platelet Volume 9.2 fL (7.4-10.4); Platelet Count 232 thou/uL (130-400); RBC Distribution Width 13.9 % (11.5-14.5); Red Blood Cell (RBC) Count 2.99 mill/uL (4.70-6.10); White Blood Cell (WBC) Count 11.6 thou/uL (4.8-10.8)
[2020-12-06 04:08] LABS: Anion Gap 17 mmol/L (10-20); BUN (Urea Nitrogen) 33 mg/dL (8.4-25.7); Calc. Creatinine Clearance 124 mL/min (70-130); Calcium 10.5 mg/dL (7.8-10.44); Carbon Dioxide 24 mmol/L (23-31); Chloride 119 mmol/L (98-107); Glucose 143 mg/dL (80-115); Potassium 3.6 mmol/L (3.5-5.1); Sodium 156 mmol/L (136-145)
[2020-12-06 04:32] LABS: Band 8 % (5-11); Eosinophils 2 % (0-10); Lymphocytes 18 % (21-51); MDiff Complete? YES; Metamyelocyte 5 % (0-0); Monocytes 7 % (0-10); Myelocyte 2 % (0-0); Neutrophil 58 % (42-75); Platelet Morphology Comment Appears Adequate
[2020-12-06 07:06] LABS: Actual Bicarbonate (HCO3a) 23.7 mEq/L (22-28); Base Excess (BEa) -0.4 mEq/L (-2.0 to +3.0); CO2 Tension 36.8 mmHg (35.0-45.0); Calcium, Ionized (arterial) 1.35 mmol/L (1.12-1.30); Carboxyhemoglobin (COHb) 0.3 gm% (0.0-3.0); Hemoglobin (Hb) 10.7 g/dL (14.0-18.0); O2 Tension (PaO2), arterial 78.2 mmHg (> 80.0); Potassium - ABG Lab 3.67 mmol/L (3.70-5.30); pH, Arterial 7.43 (7.35-7.45)
[2020-12-06 07:37] LABS: Puncture Site RBA
[2020-12-06] MEDS: Lorazepam 2 MG/ML VIAL SLOW IVP PRN ×5 (07:37→18:36)
[2020-12-06] MEDS: Metoprolol Tartrate 25 MG TAB PER TUBE SCH ×2 (07:38→21:27)
[2020-12-06] MEDS: Lisinopril 20 MG TAB PER TUBE SCH (07:39)
[2020-12-06] MEDS: Thiamine HCl 200 MG/2 ML VIAL SLOW IVP SCH (07:39)
[2020-12-06] MEDS: Heparin 5,000 UNITS/ML VIAL SC SCH ×2 (07:40→21:27)
[2020-12-06] MEDS: NPH, Human Insulin Isophane 300 UNIT/3 ML VIAL SC SCH (07:40)
[2020-12-06] MEDS: Nystatin Powder 15 GM BOT TOP SCH ×2 (07:40→21:30)
[2020-12-06] MEDS: Pantoprazole 40 MG GRANULES PACKET PER TUBE SCH (21:27)
[2020-12-06] MEDS ORDERED: Fentanyl CADD 100 ML ONE (22:52)
[2020-12-07] MEDS: Propofol 1,000 MG/100 ML VIAL IV PRN ×6 (03:17→21:06)
[2020-12-07 04:27] LABS: Anion Gap 14 mmol/L (10-20); BUN (Urea Nitrogen) 32 mg/dL (8.4-25.7); Calc. Creatinine Clearance 124 mL/min (70-130); Carbon Dioxide 26 mmol/L (23-31); Chloride 118 mmol/L (98-107); Glucose 107 mg/dL (80-115); Potassium 3.7 mmol/L (3.5-5.1); Sodium 154 mmol/L (136-145)
[2020-12-07 04:30] LABS: Band 2 % (5-11); Eosinophils 4 % (0-10); Hemoglobin 9.3 g/dL (14.0-18.0); Lymphocytes 9 % (21-51); MDiff Complete? YES; Mean Corpuscular HGB CONC 32.2 g/dL (32.0-36.0); Mean Corpuscular Hemoglobin 34.6 pg (27.0-31.0); Mean Platelet Volume 9.5 fL (7.4-10.4); Metamyelocyte 4 % (0-0); Monocytes 7 % (0-10); Neutrophil 74 % (42-75); Nucleated RBC 1 % (0); Platelet Count 216 thou/uL (130-400); Platelet Morphology Comment Appears Adequate; RBC Distribution Width 13.8 % (11.5-14.5); Red Blood Cell (RBC) Count 2.68 mill/uL (4.70-6.10); White Blood Cell (WBC) Count 11.3 thou/uL (4.8-10.8)
[2020-12-07 07:12] LABS: Actual Bicarbonate (HCO3a) 25.2 mEq/L (22-28); Base Excess (BEa) -1.1 mEq/L (-2.0 to +3.0); CO2 Tension 49.3 mmHg (35.0-45.0); Calcium, Ionized (arterial) 1.35 mmol/L (1.12-1.30); Carboxyhemoglobin (COHb) 1.2 gm% (0.0-3.0); Hemoglobin (Hb) 11.8 g/dL (14.0-18.0); O2 Tension (PaO2), arterial 91.2 mmHg (> 80.0); Potassium - ABG Lab 3.84 mmol/L (3.70-5.30); pH, Arterial 7.33 (7.35-7.45)
[2020-12-07] MEDS: Metoprolol Tartrate 25 MG TAB PER TUBE SCH ×2 (07:27→18:17)
[2020-12-07] MEDS: Heparin 5,000 UNITS/ML VIAL SC SCH ×2 (07:27→21:06)
[2020-12-07] MEDS: Nystatin Powder 15 GM BOT TOP SCH ×2 (07:28→21:00)
[2020-12-07] MEDS: Thiamine HCl 200 MG/2 ML VIAL SLOW IVP SCH (07:29)
[2020-12-07] MEDS: NPH, Human Insulin Isophane 300 UNIT/3 ML VIAL SC SCH (07:30)
[2020-12-07 07:31] LABS: ALV-art Gradient 132.375 mmHg (0-20); Puncture Site RBA
[2020-12-07] MEDS: Lorazepam 1 MG TAB PER TUBE SCH ×3 (12:33→21:06)
[2020-12-07] MEDS: Lisinopril 20 MG TAB PER TUBE SCH (12:40)
[2020-12-07] MEDS ORDERED: Furosemide 40 MG/4 ML VIAL SLOW IVP SCH (13:30)
[2020-12-07] MEDS ORDERED: Fentanyl CADD 100 ML ONE (16:39)
[2020-12-07] MEDS: Labetalol HCl 100 MG/20 ML VIAL SLOW IVP PRN (17:55)
[2020-12-07] MEDS: Acetaminophen 325 MG TAB PO PRN (18:17)
[2020-12-07] MEDS: Pantoprazole 40 MG GRANULES PACKET PER TUBE SCH (21:06)
[2020-12-08] MEDS: Propofol 1,000 MG/100 ML VIAL IV PRN ×6 (00:56→23:40)
[2020-12-08 04:07] LABS: Hemoglobin 9.3 g/dL (14.0-18.0); Mean Corpuscular HGB CONC 32.6 g/dL (32.0-36.0); Mean Corpuscular Hemoglobin 34.9 pg (27.0-31.0); Mean Platelet Volume 9.7 fL (7.4-10.4); Platelet Count 212 thou/uL (130-400); RBC Distribution Width 13.6 % (11.5-14.5); Red Blood Cell (RBC) Count 2.68 mill/uL (4.70-6.10); White Blood Cell (WBC) Count 13.4 thou/uL (4.8-10.8)
[2020-12-08 04:31] LABS: Band 1 % (5-11); Eosinophils 1 % (0-10); Lymphocytes 11 % (21-51); MDiff Complete? YES; Metamyelocyte 2 % (0-0); Monocytes 3 % (0-10); Neutrophil 82 % (42-75); Platelet Morphology Comment Appears Adequate
[2020-12-08 04:42] LABS: Anion Gap 13 mmol/L (10-20); BUN (Urea Nitrogen) 45 mg/dL (8.4-25.7); Calc. Creatinine Clearance 111 mL/min (70-130); Calcium 10.1 mg/dL (7.8-10.44); Carbon Dioxide 28 mmol/L (23-31); Chloride 114 mmol/L (98-107); Glucose 126 mg/dL (80-115); Potassium 3.6 mmol/L (3.5-5.1); Sodium 151 mmol/L (136-145)
[2020-12-08] MEDS: Lorazepam 1 MG TAB PER TUBE SCH (06:37)
[2020-12-08 07:13] LABS: Actual Bicarbonate (HCO3a) 24.7 mEq/L (22-28); Base Excess (BEa) -1.6 mEq/L (-2.0 to +3.0); CO2 Tension 47.2 mmHg (35.0-45.0); Calcium, Ionized (arterial) 1.31 mmol/L (1.12-1.30); O2 Tension (PaO2), arterial 87.1 mmHg (> 80.0); pH, Arterial 7.34 (7.35-7.45)
[2020-12-08 07:29] LABS: Puncture Site RRA
[2020-12-08] MEDS: Metoprolol Tartrate 25 MG TAB PER TUBE SCH ×2 (08:47→20:08)
[2020-12-08] MEDS: Heparin 5,000 UNITS/ML VIAL SC SCH ×2 (08:48→20:08)
[2020-12-08] MEDS: Lisinopril 20 MG TAB PER TUBE SCH (08:48)
[2020-12-08] MEDS: NPH, Human Insulin Isophane 300 UNIT/3 ML VIAL SC SCH (08:48)
[2020-12-08] MEDS: Nystatin Powder 15 GM BOT TOP SCH ×2 (08:49→20:34)
[2020-12-08] MEDS: Thiamine HCl 200 MG/2 ML VIAL SLOW IVP SCH (09:16)
[2020-12-08] MEDS: Lorazepam 2 MG/ML VIAL SLOW IVP PRN (16:50)
[2020-12-08] MEDS: Pantoprazole 40 MG GRANULES PACKET PER TUBE SCH (20:08)
[2020-12-09] MEDS ORDERED: Diltiazem HCl 125 MG, Admixture Fee 1 EACH in Sodium Chloride 0.9% 100 ML IVPB PRN (02:23)
[2020-12-09] MEDS: Propofol 1,000 MG/100 ML VIAL IV PRN ×4 (03:23→19:36)
[2020-12-09] MEDS: Lorazepam 2 MG/ML VIAL SLOW IVP PRN ×4 (04:40→20:43)
[2020-12-09] MEDS: Acetaminophen 325 MG TAB PO PRN ×2 (05:35→12:27)
[2020-12-09 05:37] LABS: #Basophils 0.1 thou/uL (0.0-0.2); #Eosinphils 0.1 thou/uL (0.0-0.7); #Monocytes 0.8 thou/uL (0.11-0.59); #Neutrophils 11.8 thou/uL (1.40-6.50); %Basophils 0.4 % (0.0-1.0); %Lymphocytes 7.3 % (21.0-51.0); %Neutrophils 85.2 % (42.0-75.0); Hemoglobin 9.3 g/dL (14.0-18.0); Mean Corpuscular Hemoglobin 34.2 pg (27.0-31.0); Mean Platelet Volume 9.7 fL (7.4-10.4); Platelet Count 243 thou/uL (130-400); RBC Distribution Width 13.4 % (11.5-14.5); Red Blood Cell (RBC) Count 2.71 mill/uL (4.70-6.10); White Blood Cell (WBC) Count 13.9 thou/uL (4.8-10.8)
[2020-12-09 06:29] LABS: Chloride 116 mmol/L (98-107); Potassium 3.6 mmol/L (3.5-5.1)
[2020-12-09 06:30] LABS: Glucose 144 mg/dL (80-115)
[2020-12-09 06:32] LABS: Anion Gap 15 mmol/L (10-20); Carbon Dioxide 28 mmol/L (23-31)
[2020-12-09 06:34] LABS: BUN (Urea Nitrogen) 37 mg/dL (8.4-25.7)
[2020-12-09 06:35] LABS: Calc. Creatinine Clearance 102 mL/min (70-130)
[2020-12-09 07:00] LABS: Actual Bicarbonate (HCO3a) 25.4 mEq/L (22-28); Base Excess (BEa) 0.9 mEq/L (-2.0 to +3.0); CO2 Tension 39.8 mmHg (35.0-45.0); Calcium, Ionized (arterial) 1.33 mmol/L (1.12-1.30); Carboxyhemoglobin (COHb) 0.3 gm% (0.0-3.0); Hemoglobin (Hb) 9.5 g/dL (14.0-18.0); O2 Tension (PaO2), arterial 80.2 mmHg (> 80.0); Potassium - ABG Lab 3.59 mmol/L (3.70-5.30); pH, Arterial 7.42 (7.35-7.45)
[2020-12-09 07:02] LABS: Puncture Site RRA
[2020-12-09] MEDS ORDERED: VANC IVPB PRN (08:31)
[2020-12-09] MEDS: Thiamine HCl 200 MG/2 ML VIAL SLOW IVP SCH (08:42)
[2020-12-09] MEDS: Heparin 5,000 UNITS/ML VIAL SC SCH ×2 (08:43→21:22)
[2020-12-09] MEDS: Lisinopril 20 MG TAB PER TUBE SCH (08:43)
[2020-12-09] MEDS: Metoprolol Tartrate 25 MG TAB PER TUBE SCH (08:44)
[2020-12-09] MEDS: NPH, Human Insulin Isophane 300 UNIT/3 ML VIAL SC SCH (08:45)
[2020-12-09] MEDS: Nystatin Powder 15 GM BOT TOP SCH ×2 (09:00→21:57)
[2020-12-09] MEDS: Meropenem 2 GM, Admixture Fee 1 EACH in Sodium Chloride 0.9% 100 ML IVPB SCH ×2 (10:12→16:56)
[2020-12-09] MEDS: Vancomycin 1.5 GRAM/300 ML BAG 1.5 GM in Premix Bag 1 BAG IVPB SCH ×2 (10:36→22:30)
[2020-12-09] MEDS ORDERED: Amiodarone 150 MG, Admixture Fee 1 EACH in Dextrose 5% in Water 100 ML IVPB SCH (12:30)
[2020-12-09] MEDS: Amiodarone 450 MG, Admixture Fee 1 EACH in Dextrose 5% in Water 250 ML IVPB SCH ×2 (12:34→21:23)
[2020-12-09] MEDS: Pantoprazole 40 MG GRANULES PACKET PER TUBE SCH (21:22)
[2020-12-09] MEDS: hydrALAZINE 20 MG/ML VIAL SLOW IVP PRN (22:45)
[2020-12-10] MEDS: Lorazepam 2 MG/ML VIAL SLOW IVP PRN ×4 (00:37→21:42)
[2020-12-10] MEDS: Meropenem 2 GM, Admixture Fee 1 EACH in Sodium Chloride 0.9% 100 ML IVPB SCH ×3 (00:37→16:20)
[2020-12-10] MEDS: Propofol 1,000 MG/100 ML VIAL IV PRN ×3 (00:52→21:12)
[2020-12-10 05:03] LABS: #Basophils 0.1 thou/uL (0.0-0.2); #Eosinphils 0.2 thou/uL (0.0-0.7); #Lymphocytes 1.1 thou/uL (1.20-3.40); #Monocytes 0.8 thou/uL (0.11-0.59); #Neutrophils 13.4 thou/uL (1.40-6.50); %Basophils 0.6 % (0.0-1.0); %Eosinophils 1.6 % (0.0-10.0); %Lymphocytes 6.8 % (21.0-51.0); %Monocytes 4.9 % (0.0-10.0); %Neutrophils 86.1 % (42.0-75.0); Hemoglobin 9.5 g/dL (14.0-18.0); Mean Corpuscular HGB CONC 32.7 g/dL (32.0-36.0); Mean Corpuscular Hemoglobin 34.9 pg (27.0-31.0); Mean Platelet Volume 10.3 fL (7.4-10.4); Platelet Count 236 thou/uL (130-400); RBC Distribution Width 13.5 % (11.5-14.5); Red Blood Cell (RBC) Count 2.72 mill/uL (4.70-6.10); White Blood Cell (WBC) Count 15.5 thou/uL (4.8-10.8)
[2020-12-10 05:21] LABS: Anion Gap 12 mmol/L (10-20); BUN (Urea Nitrogen) 33 mg/dL (8.4-25.7); Calc. Creatinine Clearance 123 mL/min (70-130); Calcium 9.8 mg/dL (7.8-10.44); Carbon Dioxide 28 mmol/L (23-31); Chloride 116 mmol/L (98-107); Glucose 147 mg/dL (80-115); Sodium 153 mmol/L (136-145)
[2020-12-10 05:27] LABS: Potassium 2.8 mmol/L (3.5-5.1)
[2020-12-10] MEDS ORDERED: Potassium Chloride 40 MEQ in Premix Bag 1 BAG IVPB SCH (05:45)
[2020-12-10 06:58] LABS: ALV-art Gradient 154.725 mmHg (0-20); Actual Bicarbonate (HCO3a) 26.4 mEq/L (22-28); Base Excess (BEa) 1.9 mEq/L (-2.0 to +3.0); CO2 Tension 41.1 mmHg (35.0-45.0); Calcium, Ionized (arterial) 1.31 mmol/L (1.12-1.30); Carboxyhemoglobin (COHb) 0.3 gm% (0.0-3.0); Hemoglobin (Hb) 10.8 g/dL (14.0-18.0); O2 Tension (PaO2), arterial 79.1 mmHg (> 80.0); Puncture Site RRA; pH, Arterial 7.43 (7.35-7.45)
[2020-12-10] MEDS ORDERED: Magnesium 2 GM/50 ML 2 GM in Premix Bag 1 BAG IVPB SCH (08:15)
[2020-12-10] MEDS ORDERED: Dextrose 5% in Water 1,000 ML IV SCH (08:15)
[2020-12-10] MEDS: Lisinopril 20 MG TAB PER TUBE SCH (09:13)
[2020-12-10] MEDS: Heparin 5,000 UNITS/ML VIAL SC SCH ×2 (09:14→21:13)
[2020-12-10] MEDS: Thiamine HCl 200 MG/2 ML VIAL SLOW IVP SCH (09:14)
[2020-12-10] MEDS: NPH, Human Insulin Isophane 300 UNIT/3 ML VIAL SC SCH (09:15)
[2020-12-10] MEDS: Nystatin Powder 15 GM BOT TOP SCH ×2 (09:17→21:15)
[2020-12-10] MEDS: HumaLOG 300 UNITS/3 ML VIAL SC PRN ×2 (09:47→16:19)
[2020-12-10] MEDS: Vancomycin 1.5 GRAM/300 ML BAG 1.5 GM in Premix Bag 1 BAG IVPB SCH ×3 (10:08→22:02)
[2020-12-10] MEDS: Acetaminophen 325 MG TAB PO PRN ×2 (10:16→16:52)
[2020-12-10 12:26] LABS: Potassium 3.6 mmol/L (3.5-5.1)
[2020-12-10 14:05] LABS: Sodium 155 mmol/L (136-145)
[2020-12-10] MEDS ORDERED: Furosemide 40 MG/4 ML VIAL SLOW IVP SCH (14:15)
[2020-12-10] MEDS: Amiodarone 450 MG, Admixture Fee 1 EACH in Dextrose 5% in Water 250 ML IVPB SCH (15:05)
[2020-12-10] MEDS: Pantoprazole 40 MG GRANULES PACKET PER TUBE SCH (21:13)
[2020-12-10 21:57] LABS: Vancomycin, Trough 31.3 ug/mL
[2020-12-10] MEDS ORDERED: Vancomycin HCl 1 GM in Premix Bag 1 BAG IVPB SCH (22:30)
[2020-12-11] MEDS: Meropenem 2 GM, Admixture Fee 1 EACH in Sodium Chloride 0.9% 100 ML IVPB SCH ×3 (00:44→16:02)
[2020-12-11] MEDS: Morphine 2 MG/ML VIAL SLOW IVP PRN ×2 (02:44→20:20)
[2020-12-11 05:00] LABS: #Basophils 0.1 thou/uL (0.0-0.2); #Eosinphils 0.3 thou/uL (0.0-0.7); #Lymphocytes 1.2 thou/uL (1.20-3.40); #Monocytes 0.4 thou/uL (0.11-0.59); #Neutrophils 9.4 thou/uL (1.40-6.50); %Basophils 0.6 % (0.0-1.0); %Eosinophils 3.1 % (0.0-10.0); %Lymphocytes 10.3 % (21.0-51.0); %Monocytes 3.5 % (0.0-10.0); %Neutrophils 82.5 % (42.0-75.0); Mean Corpuscular HGB CONC 32.4 g/dL (32.0-36.0); Mean Corpuscular Hemoglobin 34.5 pg (27.0-31.0); Mean Platelet Volume 9.9 fL (7.4-10.4); Platelet Count 230 thou/uL (130-400); RBC Distribution Width 13.5 % (11.5-14.5); White Blood Cell (WBC) Count 11.3 thou/uL (4.8-10.8)
[2020-12-11 05:19] LABS: Anion Gap 14 mmol/L (10-20); BUN (Urea Nitrogen) 36 mg/dL (8.4-25.7); Calc. Creatinine Clearance 115 mL/min (70-130); Calcium 9.6 mg/dL (7.8-10.44); Carbon Dioxide 27 mmol/L (23-31); Chloride 112 mmol/L (98-107); Glucose 148 mg/dL (80-115); Sodium 150 mmol/L (136-145)
[2020-12-11] MEDS: Amiodarone 450 MG, Admixture Fee 1 EACH in Dextrose 5% in Water 250 ML IVPB SCH ×2 (06:48→22:20)
[2020-12-11] MEDS: Propofol 1,000 MG/100 ML VIAL IV PRN ×2 (06:48→17:54)
[2020-12-11] MEDS ORDERED: Potassium Chloride 40 MEQ in Sodium Chloride 0.9% 250 ML 250 ML IVPB SCH (08:30)
[2020-12-11] MEDS: Nystatin Powder 15 GM BOT TOP SCH ×2 (09:29→20:19)
[2020-12-11] MEDS: Thiamine HCl 200 MG/2 ML VIAL SLOW IVP SCH (09:30)
[2020-12-11] MEDS: Heparin 5,000 UNITS/ML VIAL SC SCH ×2 (09:30→20:19)
[2020-12-11] MEDS: Lisinopril 20 MG TAB PER TUBE SCH (09:31)
[2020-12-11] MEDS: NPH, Human Insulin Isophane 300 UNIT/3 ML VIAL SC SCH (09:31)
[2020-12-11 11:08] LABS: Vancomycin, Random 19.8 ug/mL (See Comment)
[2020-12-11] MEDS ORDERED: Potassium Chloride 20 MEQ TAB PER TUBE SCH (14:45)
[2020-12-11] MEDS ORDERED: Furosemide 20 MG/2 ML VIAL SLOW IVP SCH (14:45)
[2020-12-11 15:37] LABS: Potassium 3.5 mmol/L (3.5-5.1)
[2020-12-11] MEDS: Vancomycin 1.5 GRAM/300 ML BAG 1.5 GM in Premix Bag 1 BAG IVPB SCH (17:25)
[2020-12-11] MEDS: Pantoprazole 40 MG GRANULES PACKET PER TUBE SCH (20:19)
[2020-12-12] MEDS: Lorazepam 2 MG/ML VIAL SLOW IVP PRN ×2 (00:13→20:34)
[2020-12-12] MEDS: Meropenem 2 GM, Admixture Fee 1 EACH in Sodium Chloride 0.9% 100 ML IVPB SCH ×3 (02:17→18:09)
[2020-12-12] MEDS: Propofol 1,000 MG/100 ML VIAL IV PRN (04:23)
[2020-12-12 04:32] LABS: #Basophils 0.1 thou/uL (0.0-0.2); #Eosinphils 0.3 thou/uL (0.0-0.7); #Monocytes 0.6 thou/uL (0.11-0.59); #Neutrophils 7.8 thou/uL (1.40-6.50); %Basophils 0.6 % (0.0-1.0); %Eosinophils 3.1 % (0.0-10.0); %Lymphocytes 9.9 % (21.0-51.0); %Monocytes 6.1 % (0.0-10.0); %Neutrophils 80.4 % (42.0-75.0); Hemoglobin 9.3 g/dL (14.0-18.0); Mean Corpuscular HGB CONC 32.8 g/dL (32.0-36.0); Mean Corpuscular Hemoglobin 35.2 pg (27.0-31.0); Mean Platelet Volume 9.8 fL (7.4-10.4); Platelet Count 248 thou/uL (130-400); RBC Distribution Width 13.3 % (11.5-14.5); Red Blood Cell (RBC) Count 2.65 mill/uL (4.70-6.10); White Blood Cell (WBC) Count 9.7 thou/uL (4.8-10.8)
[2020-12-12 04:50] LABS: Anion Gap 12 mmol/L (10-20); BUN (Urea Nitrogen) 33 mg/dL (8.4-25.7); Calc. Creatinine Clearance 114 mL/min (70-130); Calcium 9.8 mg/dL (7.8-10.44); Carbon Dioxide 29 mmol/L (23-31); Chloride 116 mmol/L (98-107); Glucose 143 mg/dL (80-115); Potassium 3.2 mmol/L (3.5-5.1); Sodium 154 mmol/L (136-145)
[2020-12-12] MEDS ORDERED: DC Sedation Protocol FS ONE (08:22)
[2020-12-12] MEDS ORDERED: Racepinephrine 2.25% 0.5 ML NEB ONE ×2 (09:42→13:44)
[2020-12-12] MEDS ORDERED: Dexamethasone 4 mg/ml Vial ONE (09:47)
[2020-12-12] MEDS ORDERED: Morphine 4 MG/ML VIAL ONE (09:49)
[2020-12-12] MEDS ORDERED: Dexamethasone 4 mg/ml Vial SLOW IVP SCH ×2 (10:00→19:00)
[2020-12-12] MEDS ORDERED: Dexamethasone 4 mg/ml Vial NEB SCH ×2 (10:00→10:15)
[2020-12-12] MEDS: Dextrose 5% in Water 1,000 ML IV SCH ×2 (10:30→23:45)
[2020-12-12] MEDS: Lisinopril 20 MG TAB PER TUBE SCH (10:31)
[2020-12-12] MEDS: NPH, Human Insulin Isophane 300 UNIT/3 ML VIAL SC SCH (10:31)
[2020-12-12] MEDS: Heparin 5,000 UNITS/ML VIAL SC SCH ×2 (10:31→20:37)
[2020-12-12] MEDS: Nystatin Powder 15 GM BOT TOP SCH ×2 (10:32→20:38)
[2020-12-12] MEDS: Thiamine HCl 200 MG/2 ML VIAL SLOW IVP SCH (11:54)
[2020-12-12] MEDS: Morphine 4 MG/ML VIAL SLOW IVP PRN ×4 (12:45→23:52)
[2020-12-12] MEDS: Amiodarone 450 MG, Admixture Fee 1 EACH in Dextrose 5% in Water 250 ML IVPB SCH (15:05)
[2020-12-12] MEDS: HumaLOG 300 UNITS/3 ML VIAL SC PRN (15:13)
[2020-12-12] MEDS: Vancomycin 1.5 GRAM/300 ML BAG 1.5 GM in Premix Bag 1 BAG IVPB SCH (17:31)
[2020-12-12] MEDS: Pantoprazole 40 MG GRANULES PACKET PER TUBE SCH (20:37)
[2020-12-12] MEDS: hydrALAZINE 20 MG/ML VIAL SLOW IVP PRN (23:53)
[2020-12-13] MEDS: Dexamethasone 4 mg/ml Vial SLOW IVP SCH ×4 (00:59→21:36)
[2020-12-13] MEDS: Meropenem 2 GM, Admixture Fee 1 EACH in Sodium Chloride 0.9% 100 ML IVPB SCH ×3 (01:00→17:59)
[2020-12-13] MEDS: Lorazepam 2 MG/ML VIAL SLOW IVP PRN ×3 (01:08→21:36)
[2020-12-13] MEDS: Dexamethasone 4 mg/ml Vial NEB SCH ×4 (01:24→13:07)
[2020-12-13] MEDS: HumaLOG 300 UNITS/3 ML VIAL SC PRN ×2 (04:42→10:36)
[2020-12-13] MEDS: Morphine 4 MG/ML VIAL SLOW IVP PRN ×2 (05:37→21:36)
[2020-12-13] MEDS: hydrALAZINE 20 MG/ML VIAL SLOW IVP PRN (05:38)
[2020-12-13] MEDS: Amiodarone 450 MG, Admixture Fee 1 EACH in Dextrose 5% in Water 250 ML IVPB SCH ×2 (06:44→21:51)
[2020-12-13] MEDS ORDERED: Dexamethasone 4 mg/ml Vial SLOW IVP SCH (09:00)
[2020-12-13] MEDS: Heparin 5,000 UNITS/ML VIAL SC SCH ×2 (10:12→21:35)
[2020-12-13] MEDS: Lisinopril 20 MG TAB PER TUBE SCH (10:15)
[2020-12-13] MEDS: Nystatin Powder 15 GM BOT TOP SCH ×2 (10:18→21:38)
[2020-12-13] MEDS: NPH, Human Insulin Isophane 300 UNIT/3 ML VIAL SC SCH (12:41)
[2020-12-13] MEDS: Thiamine HCl 200 MG/2 ML VIAL SLOW IVP SCH (14:22)
[2020-12-13] MEDS: Vancomycin 1.5 GRAM/300 ML BAG 1.5 GM in Premix Bag 1 BAG IVPB SCH (18:01)
[2020-12-13 18:38] LABS: Vancomycin, Trough 21.4 ug/mL
[2020-12-13] MEDS: Pantoprazole 40 MG GRANULES PACKET PER TUBE SCH (21:35)
[2020-12-13] MEDS ORDERED: Dexamethasone 4 MG in Sodium Chloride 0.9% 50 ML IVPB SCH (22:00)
[2020-12-14] MEDS: Meropenem 2 GM, Admixture Fee 1 EACH in Sodium Chloride 0.9% 100 ML IVPB SCH ×3 (01:11→16:37)
[2020-12-14] MEDS: hydrALAZINE 20 MG/ML VIAL SLOW IVP PRN ×2 (02:54→20:10)
[2020-12-14] MEDS: Dexamethasone 4 mg/ml Vial SLOW IVP SCH ×2 (05:53→14:31)
[2020-12-14] MEDS: Lisinopril 20 MG TAB PER TUBE SCH (08:52)
[2020-12-14] MEDS: Lorazepam 2 MG/ML VIAL SLOW IVP PRN ×2 (09:40→23:21)
[2020-12-14] MEDS: Heparin 5,000 UNITS/ML VIAL SC SCH ×2 (09:40→20:09)
[2020-12-14] MEDS: NPH, Human Insulin Isophane 300 UNIT/3 ML VIAL SC SCH (09:41)
[2020-12-14] MEDS: Labetalol HCl 100 MG/20 ML VIAL SLOW IVP PRN ×2 (09:43→18:17)
[2020-12-14] MEDS: Nystatin Powder 15 GM BOT TOP SCH ×2 (09:53→20:09)
[2020-12-14] MEDS: Amiodarone 450 MG, Admixture Fee 1 EACH in Dextrose 5% in Water 250 ML IVPB SCH (12:07)
[2020-12-14] MEDS: VANCOMYCIN 1.25 GM/250 ML BAG 1.25 GM in Premix Bag 1 BAG IVPB SCH (18:17)
[2020-12-14] MEDS ORDERED: Sterile Water 10 ML ONE (19:54)
[2020-12-14] MEDS: Famotidine/PF 20 mg/2ml Vial SLOW IVP SCH (20:08)
[2020-12-14] MEDS: Ziprasidone 20 MG VIAL IM SCH (20:09)
[2020-12-15] MEDS: Meropenem 2 GM, Admixture Fee 1 EACH in Sodium Chloride 0.9% 100 ML IVPB SCH ×3 (00:19→17:26)
[2020-12-15] MEDS: Amiodarone 450 MG, Admixture Fee 1 EACH in Dextrose 5% in Water 250 ML IVPB SCH ×2 (02:17→17:39)
[2020-12-15] MEDS: hydrALAZINE 20 MG/ML VIAL SLOW IVP PRN (03:49)
[2020-12-15] MEDS: Lorazepam 2 MG/ML VIAL SLOW IVP PRN ×2 (03:51→17:23)
[2020-12-15] MEDS: NPH, Human Insulin Isophane 300 UNIT/3 ML VIAL SC SCH ×2 (09:41→10:01)
[2020-12-15] MEDS: Nystatin Powder 15 GM BOT TOP SCH ×3 (09:59→21:12)
[2020-12-15] MEDS: Heparin 5,000 UNITS/ML VIAL SC SCH ×2 (10:00→21:12)
[2020-12-15] MEDS: Lisinopril 20 MG TAB PER TUBE SCH ×2 (10:00→10:05)
[2020-12-15] MEDS: Famotidine/PF 20 mg/2ml Vial SLOW IVP SCH ×2 (10:00→21:12)
[2020-12-15] MEDS ORDERED: Sterile Water 10 ML ONE ×2 (10:07→21:17)
[2020-12-15] MEDS: Ziprasidone 20 MG VIAL IM SCH ×2 (10:09→21:13)
[2020-12-15] MEDS: Labetalol HCl 100 MG/20 ML VIAL SLOW IVP PRN (12:23)
[2020-12-15] MEDS: VANCOMYCIN 1.25 GM/250 ML BAG 1.25 GM in Premix Bag 1 BAG IVPB SCH (17:39)
[2020-12-16] MEDS: Meropenem 2 GM, Admixture Fee 1 EACH in Sodium Chloride 0.9% 100 ML IVPB SCH ×3 (00:46→17:05)
[2020-12-16 04:58] LABS: Anion Gap 11 mmol/L (10-20); BUN (Urea Nitrogen) 35 mg/dL (8.4-25.7); Calc. Creatinine Clearance 112 mL/min (70-130); Calcium 9.5 mg/dL (7.8-10.44); Carbon Dioxide 32 mmol/L (23-31); Chloride 115 mmol/L (98-107); Glucose 134 mg/dL (80-115); Potassium 3.5 mmol/L (3.5-5.1); Sodium 154 mmol/L (136-145)
[2020-12-16] MEDS: Amiodarone 450 MG, Admixture Fee 1 EACH in Dextrose 5% in Water 250 ML IVPB SCH (09:31)
[2020-12-16] MEDS: Famotidine/PF 20 mg/2ml Vial SLOW IVP SCH ×2 (09:48→21:26)
[2020-12-16] MEDS: Heparin 5,000 UNITS/ML VIAL SC SCH ×2 (09:48→21:26)
[2020-12-16] MEDS: Ziprasidone 20 MG VIAL IM SCH ×2 (09:49→21:27)
[2020-12-16] MEDS: Nystatin Powder 15 GM BOT TOP SCH ×2 (09:49→21:27)
[2020-12-16] MEDS: Lisinopril 20 MG TAB PER TUBE SCH (09:49)
[2020-12-16] MEDS: NPH, Human Insulin Isophane 300 UNIT/3 ML VIAL SC SCH (09:50)
[2020-12-16] MEDS ORDERED: Sterile Water 10 ML ONE (09:58)
[2020-12-16] MEDS: Lorazepam 2 MG/ML VIAL SLOW IVP PRN ×2 (17:15→21:45)
[2020-12-16] MEDS: VANCOMYCIN 1.25 GM/250 ML BAG 1.25 GM in Premix Bag 1 BAG IVPB SCH (17:52)
[2020-12-16] MEDS: hydrALAZINE 20 MG/ML VIAL SLOW IVP PRN (21:45)
[2020-12-17] MEDS: Meropenem 2 GM, Admixture Fee 1 EACH in Sodium Chloride 0.9% 100 ML IVPB SCH (01:11)
[2020-12-17] MEDS: Amiodarone 450 MG, Admixture Fee 1 EACH in Dextrose 5% in Water 250 ML IVPB SCH ×2 (01:11→14:18)
[2020-12-17] MEDS: Lorazepam 2 MG/ML VIAL SLOW IVP PRN ×2 (02:50→21:32)
[2020-12-17 05:00] LABS: Anion Gap 9 mmol/L (10-20); BUN (Urea Nitrogen) 27 mg/dL (8.4-25.7); Calc. Creatinine Clearance 118 mL/min (70-130); Calcium 9.2 mg/dL (7.8-10.44); Carbon Dioxide 33 mmol/L (23-31); Chloride 117 mmol/L (98-107); Glucose 125 mg/dL (80-115); Potassium 3.2 mmol/L (3.5-5.1); Sodium 156 mmol/L (136-145)
[2020-12-17] MEDS: Heparin 5,000 UNITS/ML VIAL SC SCH ×2 (08:09→21:32)
[2020-12-17] MEDS: Famotidine/PF 20 mg/2ml Vial SLOW IVP SCH (08:11)
[2020-12-17] MEDS: NPH, Human Insulin Isophane 300 UNIT/3 ML VIAL SC SCH (08:12)
[2020-12-17] MEDS: Lisinopril 20 MG TAB PER TUBE SCH (08:12)
[2020-12-17] MEDS: Ziprasidone 20 MG VIAL IM SCH ×2 (08:15→21:32)
[2020-12-17] MEDS: Nystatin Powder 15 GM BOT TOP SCH (08:22)
[2020-12-17] MEDS: MEROPENEM 1 GM/50 ML 1 GM in Premix Bag 1 BAG IVPB SCH ×2 (12:34→18:47)
[2020-12-17] MEDS: VANCOMYCIN 1.25 GM/250 ML BAG 1.25 GM in Premix Bag 1 BAG IVPB SCH (18:48)
[2020-12-17] MEDS: Famotidine 20 MG TAB PO SCH (21:23)
[2020-12-17] MEDS ORDERED: Sterile Water 10 ML ONE (21:27)
[2020-12-18] MEDS: Nystatin Powder 15 GM BOT TOP SCH ×3 (00:02→20:39)
[2020-12-18] MEDS: MEROPENEM 1 GM/50 ML 1 GM in Premix Bag 1 BAG IVPB SCH ×2 (02:08→08:46)
[2020-12-18 04:47] LABS: #Eosinphils 0.4 thou/uL (0.0-0.7); #Monocytes 0.5 thou/uL (0.11-0.59); #Neutrophils 4.2 thou/uL (1.40-6.50); %Basophils 0.4 % (0.0-1.0); %Lymphocytes 15.5 % (21.0-51.0); Hemoglobin 10.2 g/dL (14.0-18.0); Mean Corpuscular HGB CONC 33.4 g/dL (32.0-36.0); Mean Corpuscular Hemoglobin 35.1 pg (27.0-31.0); Mean Platelet Volume 9.4 fL (7.4-10.4); Platelet Count 258 thou/uL (130-400); RBC Distribution Width 13.4 % (11.5-14.5); Red Blood Cell (RBC) Count 2.91 mill/uL (4.70-6.10); White Blood Cell (WBC) Count 6.1 thou/uL (4.8-10.8)
[2020-12-18 05:15] LABS: ALT (SGPT) 25 U/L (8-55); AST (SGOT) 21 U/L (5-34); Albumin 3.1 g/dL (3.4-4.8); Alkaline Phosphatase 51 U/L (40-110); Anion Gap 17 mmol/L (10-20); BUN (Urea Nitrogen) 24 mg/dL (8.4-25.7); Bilirubin, Total 0.4 mg/dL (0.2-1.2); Calc. Creatinine Clearance 110 mL/min (70-130); Calcium 9.4 mg/dL (7.8-10.44); Carbon Dioxide 26 mmol/L (23-31); Chloride 116 mmol/L (98-107); Globulin 3.5 g/dL (2.4-3.5); Glucose 113 mg/dL (80-115); Magnesium 1.9 mg/dL (1.6-2.6); Potassium 3.1 mmol/L (3.5-5.1); Protein, Total 6.6 g/dL (5.8-8.1); Sodium 156 mmol/L (136-145)
[2020-12-18 05:20] LABS: Phosphorus 1.7 mg/dL (2.3-4.7)
[2020-12-18] MEDS ORDERED: Electrolyte Replacement Protocol FS PRN (06:00)
[2020-12-18] MEDS ORDERED: Potassium Chloride 20 MEQ in Premix Bag 1 BAG IVPB SCH (06:00)
[2020-12-18] MEDS ORDERED: Magnesium 2 GM/50 ML 2 GM in Premix Bag 1 BAG IVPB SCH (06:00)
[2020-12-18] MEDS: Amiodarone 450 MG, Admixture Fee 1 EACH in Dextrose 5% in Water 250 ML IVPB SCH ×2 (06:23→18:18)
[2020-12-18] MEDS ORDERED: Potassium Phosphate 15 MMOL in Sodium Chloride 0.9% 100 ML IVPB SCH (06:30)
[2020-12-18] MEDS: hydrALAZINE 20 MG/ML VIAL SLOW IVP PRN (08:44)
[2020-12-18] MEDS: Heparin 5,000 UNITS/ML VIAL SC SCH ×2 (08:44→20:39)
[2020-12-18] MEDS: Lisinopril 20 MG TAB PER TUBE SCH (08:45)
[2020-12-18] MEDS: Famotidine 20 MG TAB PO SCH ×2 (08:45→20:38)
[2020-12-18] MEDS: Ziprasidone 20 MG VIAL IM SCH ×2 (08:46→20:39)
[2020-12-18] MEDS: NPH, Human Insulin Isophane 300 UNIT/3 ML VIAL SC SCH (09:51)
[2020-12-18] MEDS: Aspirin Chewable 81 MG TAB PO SCH (20:38)
[2020-12-19 05:09] LABS: #Basophils 0.1 thou/uL (0.0-0.2); #Eosinphils 0.4 thou/uL (0.0-0.7); #Monocytes 0.5 thou/uL (0.11-0.59); #Neutrophils 3.7 thou/uL (1.40-6.50); %Basophils 1.3 % (0.0-1.0); %Eosinophils 7.3 % (0.0-10.0); %Monocytes 8.1 % (0.0-10.0); %Neutrophils 66.3 % (42.0-75.0); Hemoglobin 10.6 g/dL (14.0-18.0); Mean Corpuscular HGB CONC 32.6 g/dL (32.0-36.0); Mean Corpuscular Hemoglobin 34.6 pg (27.0-31.0); Mean Platelet Volume 10.6 fL (7.4-10.4); Platelet Count 265 thou/uL (130-400); RBC Distribution Width 13.7 % (11.5-14.5); Red Blood Cell (RBC) Count 3.07 mill/uL (4.70-6.10); White Blood Cell (WBC) Count 5.6 thou/uL (4.8-10.8)
[2020-12-19 05:30] LABS: ALT (SGPT) 23 U/L (8-55); AST (SGOT) 19 U/L (5-34); Albumin 3.1 g/dL (3.4-4.8); Alkaline Phosphatase 51 U/L (40-110); Anion Gap 20 mmol/L (10-20); BUN (Urea Nitrogen) 21 mg/dL (8.4-25.7); Bilirubin, Total 0.4 mg/dL (0.2-1.2); Calc. Creatinine Clearance 100 mL/min (70-130); Carbon Dioxide 23 mmol/L (23-31); Chloride 115 mmol/L (98-107); Globulin 3.6 g/dL (2.4-3.5); Glucose 119 mg/dL (80-115); Magnesium 2.1 mg/dL (1.6-2.6); Potassium 3.3 mmol/L (3.5-5.1); Protein, Total 6.7 g/dL (5.8-8.1); Sodium 155 mmol/L (136-145)
[2020-12-19 05:31] LABS: Phosphorus 2.3 mg/dL (2.3-4.7)
[2020-12-19] MEDS: Heparin 5,000 UNITS/ML VIAL SC SCH ×2 (08:49→21:12)
[2020-12-19] MEDS: Potassium Chloride 20 MEQ in Premix Bag 1 BAG IVPB SCH ×2 (08:49→12:34)
[2020-12-19] MEDS: Amiodarone 450 MG, Admixture Fee 1 EACH in Dextrose 5% in Water 250 ML IVPB SCH ×2 (08:49→22:17)
[2020-12-19] MEDS: Ziprasidone 20 MG VIAL IM SCH ×2 (08:49→21:11)
[2020-12-19] MEDS: Lisinopril 20 MG TAB PER TUBE SCH (09:19)
[2020-12-19] MEDS: Famotidine 20 MG TAB PO SCH ×2 (09:19→21:11)
[2020-12-19] MEDS: Nystatin Powder 15 GM BOT TOP SCH ×2 (09:20→21:16)
[2020-12-19] MEDS: Folic Acid 1 MG TAB PO SCH (09:23)
[2020-12-19] MEDS: NPH, Human Insulin Isophane 300 UNIT/3 ML VIAL SC SCH (12:35)
[2020-12-19] MEDS: Haloperidol Lactate 5 MG/ML VIAL IM SCH (18:15)
[2020-12-19] MEDS ORDERED: Sterile Water 10 ML ONE (21:04)
[2020-12-19] MEDS: Aspirin Chewable 81 MG TAB PO SCH (21:11)
[2020-12-20] MEDS: Haloperidol Lactate 5 MG/ML VIAL IM SCH ×3 (00:52→17:31)
[2020-12-20] MEDS: Lisinopril 20 MG TAB PER TUBE SCH (08:53)
[2020-12-20] MEDS: Heparin 5,000 UNITS/ML VIAL SC SCH ×2 (08:53→21:16)
[2020-12-20] MEDS: Folic Acid 1 MG TAB PO SCH (08:53)
[2020-12-20] MEDS: Famotidine 20 MG TAB PO SCH (08:53)
[2020-12-20] MEDS: Ziprasidone 20 MG VIAL IM SCH ×2 (08:54→21:14)
[2020-12-20] MEDS: Nystatin Powder 15 GM BOT TOP SCH ×2 (08:56→21:15)
[2020-12-20] MEDS: NPH, Human Insulin Isophane 300 UNIT/3 ML VIAL SC SCH (08:56)
[2020-12-20] MEDS ORDERED: Amiodarone 200 MG TAB PO SCH (09:30)
[2020-12-20] MEDS: Dextrose 5% in Water 1,000 ML IV SCH ×2 (12:09→21:17)
[2020-12-20] MEDS: Lorazepam 2 MG/ML VIAL SLOW IVP PRN (15:31)
[2020-12-20 16:10] LABS: BUN (Urea Nitrogen) 17 mg/dL (8.4-25.7); Calc. Creatinine Clearance 101 mL/min (70-130); Calcium 8.7 mg/dL (7.8-10.44); Chloride 110 mmol/L (98-107); Glucose 153 mg/dL (80-115); Potassium 3.2 mmol/L (3.5-5.1); Sodium 148 mmol/L (136-145)
[2020-12-20 17:49] LABS: Anion Gap 22 mmol/L (10-20); Carbon Dioxide 17 mmol/L (23-31)
[2020-12-20] MEDS ORDERED: Sterile Water 10 ML ONE (19:54)
[2020-12-20] MEDS: Amiodarone 200 MG TAB PO SCH (21:14)
[2020-12-20] MEDS: Aspirin Chewable 81 MG TAB PO SCH (21:14)
[2020-12-20] MEDS: Pantoprazole 40 MG GRANULES PACKET PO SCH (21:14)
[2020-12-21] MEDS: Haloperidol Lactate 5 MG/ML VIAL IM SCH ×3 (02:02→17:46)
[2020-12-21 04:29] LABS: Anion Gap 11 mmol/L (10-20); BUN (Urea Nitrogen) 12 mg/dL (8.4-25.7); Calc. Creatinine Clearance 118 mL/min (70-130); Calcium 8.3 mg/dL (7.8-10.44); Carbon Dioxide 28 mmol/L (23-31); Chloride 107 mmol/L (98-107); Glucose 135 mg/dL (80-115); Sodium 143 mmol/L (136-145)
[2020-12-21 04:33] LABS: Potassium 2.8 mmol/L (3.5-5.1)
[2020-12-21] MEDS: Potassium Chloride 20 MEQ TAB PO SCH ×2 (05:23→09:34)
[2020-12-21] MEDS: Dextrose 5% in Water 1,000 ML IV SCH ×2 (06:40→11:45)
[2020-12-21] MEDS: Heparin 5,000 UNITS/ML VIAL SC SCH ×2 (09:34→21:46)
[2020-12-21] MEDS: Folic Acid 1 MG TAB PO SCH (09:34)
[2020-12-21] MEDS: Amiodarone 200 MG TAB PO SCH ×2 (09:34→21:45)
[2020-12-21] MEDS: Lisinopril 20 MG TAB PER TUBE SCH (09:34)
[2020-12-21] MEDS: Ziprasidone 20 MG VIAL IM SCH ×2 (09:35→21:46)
[2020-12-21] MEDS: Nystatin Powder 15 GM BOT TOP SCH ×2 (09:37→21:46)
[2020-12-21] MEDS: NPH, Human Insulin Isophane 300 UNIT/3 ML VIAL SC SCH (09:37)
[2020-12-21] MEDS: Pantoprazole 40 MG GRANULES PACKET PO SCH (09:37)
[2020-12-21] MEDS ORDERED: Sterile Water 10 ML ONE (20:58)
[2020-12-21 21:24] LABS: Anion Gap 13 mmol/L (10-20); BUN (Urea Nitrogen) 10 mg/dL (8.4-25.7); Calc. Creatinine Clearance 116 mL/min (70-130); Calcium 8.9 mg/dL (7.8-10.44); Carbon Dioxide 25 mmol/L (23-31); Chloride 107 mmol/L (98-107); Glucose 156 mg/dL (80-115); Potassium 3.5 mmol/L (3.5-5.1); Sodium 141 mmol/L (136-145)
[2020-12-21] MEDS: Aspirin Chewable 81 MG TAB PO SCH (21:46)
[2020-12-22] MEDS: Haloperidol Lactate 5 MG/ML VIAL IM SCH ×2 (01:12→08:37)
[2020-12-22] MEDS: Dextrose 5% in Water 1,000 ML IV SCH ×2 (01:13→23:41)
[2020-12-22 03:51] LABS: Anion Gap 13 mmol/L (10-20); BUN (Urea Nitrogen) 9 mg/dL (8.4-25.7); Calc. Creatinine Clearance 123 mL/min (70-130); Calcium 8.8 mg/dL (7.8-10.44); Carbon Dioxide 24 mmol/L (23-31); Chloride 106 mmol/L (98-107); Glucose 128 mg/dL (80-115); Magnesium 1.7 mg/dL (1.6-2.6); Potassium 3.2 mmol/L (3.5-5.1); Sodium 140 mmol/L (136-145)
[2020-12-22] MEDS ORDERED: Magnesium 2 GM/50 ML 2 GM in Premix Bag 1 BAG IVPB SCH ×2 (05:00→09:00)
[2020-12-22] MEDS ORDERED: Potassium Chloride 20 MEQ TAB PO SCH ×2 (05:00→09:00)
[2020-12-22] MEDS: Lisinopril 20 MG TAB PER TUBE SCH (08:37)
[2020-12-22] MEDS: Amiodarone 200 MG TAB PO SCH ×2 (08:37→20:22)
[2020-12-22] MEDS: Heparin 5,000 UNITS/ML VIAL SC SCH ×2 (08:37→20:22)
[2020-12-22] MEDS: Folic Acid 1 MG TAB PO SCH (08:38)
[2020-12-22] MEDS: Nystatin Powder 15 GM BOT TOP SCH ×2 (08:38→20:22)
[2020-12-22] MEDS: NPH, Human Insulin Isophane 300 UNIT/3 ML VIAL SC SCH (08:38)
[2020-12-22] MEDS: Ziprasidone 20 MG VIAL IM SCH ×2 (08:38→20:21)
[2020-12-22] MEDS: Acetaminophen 325 MG TAB PO PRN (08:43)
[2020-12-22] MEDS ORDERED: Haloperidol Lactate 5 MG/ML VIAL IM PRN (10:06)
[2020-12-22 10:55] LABS: Anion Gap 14 mmol/L (10-20); BUN (Urea Nitrogen) 8 mg/dL (8.4-25.7); Calc. Creatinine Clearance 0 mL/min (70-130); Calcium 8.9 mg/dL (7.8-10.44); Carbon Dioxide 24 mmol/L (23-31); Chloride 105 mmol/L (98-107); Glucose 143 mg/dL (80-115); Potassium 3.9 mmol/L (3.5-5.1); Sodium 139 mmol/L (136-145)
[2020-12-22] MEDS: hydrALAZINE 20 MG/ML VIAL SLOW IVP PRN ×2 (14:25→23:40)
[2020-12-22] MEDS: Aspirin Chewable 81 MG TAB PO SCH (20:21)
[2020-12-23 04:30] LABS: Anion Gap 18 mmol/L (10-20); BUN (Urea Nitrogen) 7 mg/dL (8.4-25.7); Calc. Creatinine Clearance 0 mL/min (70-130); Calcium 8.9 mg/dL (7.8-10.44); Carbon Dioxide 20 mmol/L (23-31); Chloride 103 mmol/L (98-107); Glucose 114 mg/dL (80-115); Potassium 3.6 mmol/L (3.5-5.1); Sodium 137 mmol/L (136-145)
[2020-12-23] MEDS: hydrALAZINE 20 MG/ML VIAL SLOW IVP PRN ×2 (06:11→22:13)
[2020-12-23] MEDS ORDERED: Magnesium 2 GM/50 ML 2 GM in Premix Bag 1 BAG IVPB SCH (07:30)
[2020-12-23] MEDS: Amiodarone 200 MG TAB PO SCH ×3 (10:09→21:48)
[2020-12-23] MEDS: Lisinopril 20 MG TAB PER TUBE SCH (10:09)
[2020-12-23] MEDS: Folic Acid 1 MG TAB PO SCH (10:09)
[2020-12-23] MEDS: Nystatin Powder 15 GM BOT TOP SCH ×2 (10:10→21:48)
[2020-12-23] MEDS: NPH, Human Insulin Isophane 300 UNIT/3 ML VIAL SC SCH (10:11)
[2020-12-23] MEDS: Heparin 5,000 UNITS/ML VIAL SC SCH ×2 (10:11→21:48)
[2020-12-23] MEDS: Dextrose 5% in Water 1,000 ML IV SCH (20:00)
[2020-12-23] MEDS: Aspirin Chewable 81 MG TAB PO SCH (21:47)
[2020-12-24] MEDS: Lisinopril 20 MG TAB PER TUBE SCH (09:18)
[2020-12-24] MEDS: Heparin 5,000 UNITS/ML VIAL SC SCH ×2 (09:18→20:35)
[2020-12-24] MEDS: NPH, Human Insulin Isophane 300 UNIT/3 ML VIAL SC SCH (09:19)
[2020-12-24] MEDS: Nystatin Powder 15 GM BOT TOP SCH ×2 (09:19→20:35)
[2020-12-24] MEDS: Folic Acid 1 MG TAB PO SCH (09:19)
[2020-12-24] MEDS: Amiodarone 200 MG TAB PO SCH ×3 (09:19→20:35)
[2020-12-24 14:10] VITALS: BMI 29.3
[2020-12-24] MEDS: Dextrose 5% in Water 1,000 ML IV SCH (16:13)
[2020-12-24] MEDS: Aspirin Chewable 81 MG TAB PO SCH (20:35)
[2020-12-25] MEDS: Lisinopril 20 MG TAB PER TUBE SCH (10:12)
[2020-12-25] MEDS: Heparin 5,000 UNITS/ML VIAL SC SCH ×2 (10:12→20:31)
[2020-12-25] MEDS: Amiodarone 200 MG TAB PO SCH ×3 (10:12→20:30)
[2020-12-25] MEDS: Folic Acid 1 MG TAB PO SCH (10:12)
[2020-12-25] MEDS: Nystatin Powder 15 GM BOT TOP SCH ×2 (10:13→20:45)
[2020-12-25] MEDS: NPH, Human Insulin Isophane 300 UNIT/3 ML VIAL SC SCH (10:13)
[2020-12-25 10:15] LABS: #Eosinphils 0.3 thou/uL (0.0-0.7); #Neutrophils 6.5 thou/uL (1.40-6.50); %Basophils 0.4 % (0.0-1.0); %Eosinophils 3.8 % (0.0-10.0); %Lymphocytes 10.9 % (21.0-51.0); %Monocytes 11.7 % (0.0-10.0); %Neutrophils 73.3 % (42.0-75.0); Hemoglobin 10.3 g/dL (14.0-18.0); Mean Corpuscular HGB CONC 33.7 g/dL (32.0-36.0); Mean Corpuscular Hemoglobin 34.5 pg (27.0-31.0); Mean Platelet Volume 9.8 fL (7.4-10.4); Platelet Count 218 thou/uL (130-400); RBC Distribution Width 13.9 % (11.5-14.5); White Blood Cell (WBC) Count 8.9 thou/uL (4.8-10.8)
[2020-12-25] MEDS: Acetaminophen 325 MG TAB PO PRN (20:30)
[2020-12-25] MEDS: Aspirin Chewable 81 MG TAB PO SCH (20:30)
[2020-12-26 06:59] LABS: Anion Gap 17 mmol/L (10-20); BUN (Urea Nitrogen) 8 mg/dL (8.4-25.7); Calc. Creatinine Clearance 115 mL/min (70-130); Carbon Dioxide 21 mmol/L (23-31); Chloride 101 mmol/L (98-107); Glucose 151 mg/dL (80-115); Potassium 3.3 mmol/L (3.5-5.1); Sodium 136 mmol/L (136-145)
[2020-12-26] MEDS ORDERED: Potassium Chloride 20 MEQ TAB PO SCH ×2 (07:30→08:45)
[2020-12-26 07:51] VITALS: TEMP 98.6
[2020-12-26] MEDS: Amiodarone 200 MG TAB PO SCH ×2 (08:43→14:38)
[2020-12-26] MEDS: Heparin 5,000 UNITS/ML VIAL SC SCH (08:43)
[2020-12-26] MEDS: Folic Acid 1 MG TAB PO SCH (08:43)
[2020-12-26] MEDS: NPH, Human Insulin Isophane 300 UNIT/3 ML VIAL SC SCH (08:44)
[2020-12-26] MEDS: Nystatin Powder 15 GM BOT TOP SCH (08:44)
[2020-12-26] MEDS: Lisinopril 20 MG TAB PER TUBE SCH (08:44)
[2020-12-26] MEDS: Acetaminophen 325 MG TAB PO PRN (09:06)
[2020-12-26 17:12] VITALS: BP 163/77
== END 2020-12-26 19:40 | DRG 870 ==
LOC: ERS 01:42 → ERHOLD 03:30 → CCU 11:06 → IMCU/EMU 12-17 16:59 → T4-A 12-25 12:05
PROVIDERS: ADMIT Internal Medicine; ATTEND Internal Medicine
PROC: 5A1955Z Respiratory Ventilation, Greater than 96 Consecutive Hours (ICD-10-PCS; principal; 2020-11-28)
PROC: 5A1D70Z Performance of Urinary Filtration, Intermittent, Less than 6 Hours Per Day (ICD-10-PCS; 2020-11-28)
PROC: 3E043XZ Introduction of Vasopressor into Central Vein, Percutaneous Approach (ICD-10-PCS; 2020-11-28)
PROC: 06HY33Z Insertion of Infusion Device into Lower Vein, Percutaneous Approach (ICD-10-PCS; 2020-11-28)
PROC: 0BH18EZ Insertion of Endotracheal Airway into Trachea, Via Natural or Artificial Opening Endoscopic (ICD-10-PCS; 2020-11-28)
PROC: 02HV33Z Insertion of Infusion Device into Superior Vena Cava, Percutaneous Approach (ICD-10-PCS; 2020-11-28)
PROC: 0W3P8ZZ Control Bleeding in Gastrointestinal Tract, Via Natural or Artificial Opening Endoscopic (ICD-10-PCS; 2020-12-01)
PROC: 5A09457 Assistance with Respiratory Ventilation, 24-96 Consecutive Hours, Continuous Positive Airway Pressure (ICD-10-PCS; 2020-12-12)
DX: A41.01 Sepsis due to Methicillin susceptible Staphylococcus aureus (principal); G93.41 Metabolic encephalopathy; K26.4 Chronic or unspecified duodenal ulcer with hemorrhage; J18.9 Pneumonia, unspecified organism; J96.21 Acute and chronic respiratory failure with hypoxia; D62 Acute posthemorrhagic anemia; E87.1 Hypo-osmolality and hyponatremia; L03.116 Cellulitis of left lower limb; F10.231 Alcohol dependence with withdrawal delirium; N17.9 Acute kidney failure, unspecified; E87.2 Acidosis; F13.20 Sedative, hypnotic or anxiolytic dependence, uncomplicated; E87.0 Hyperosmolality and hypernatremia; I48.92 Unspecified atrial flutter; J44.0 Chronic obstructive pulmonary disease with (acute) lower respiratory infection; I50.32 Chronic diastolic (congestive) heart failure; E44.0 Moderate protein-calorie malnutrition; I13.0 Hypertensive heart and chronic kidney disease with heart failure and stage 1 through stage 4 chronic kidney disease, or unspecified chronic kidney disease; Z20.822 Contact with and (suspected) exposure to COVID-19; E11.649 Type 2 diabetes mellitus with hypoglycemia without coma; E66.01 Morbid (severe) obesity due to excess calories; E88.81 Metabolic syndrome and other insulin resistance; K29.70 Gastritis, unspecified, without bleeding; K25.9 Gastric ulcer, unspecified as acute or chronic, without hemorrhage or perforation; F32.9 Major depressive disorder, single episode, unspecified; E78.5 Hyperlipidemia, unspecified; E87.5 Hyperkalemia; N18.30 Chronic kidney disease, stage 3 unspecified; E11.51 Type 2 diabetes mellitus with diabetic peripheral angiopathy without gangrene; D63.1 Anemia in chronic kidney disease; E11.22 Type 2 diabetes mellitus with diabetic chronic kidney disease; K20.90 Esophagitis, unspecified without bleeding; F17.210 Nicotine dependence, cigarettes, uncomplicated; B36.9 Superficial mycosis, unspecified; I48.0 Paroxysmal atrial fibrillation; E78.1 Pure hyperglyceridemia; T42.4X5A Adverse effect of benzodiazepines, initial encounter; R82.81 Pyuria; E83.42 Hypomagnesemia; E83.39 Other disorders of phosphorus metabolism; R13.10 Dysphagia, unspecified; E86.0 Dehydration; E86.9 Volume depletion, unspecified; E87.6 Hypokalemia; Z89.511 Acquired absence of right leg below knee; Z68.28 Body mass index [BMI] 28.0-28.9, adult; Z78.1 Physical restraint status; Z95.0 Presence of cardiac pacemaker; Z79.899 Other long term (current) drug therapy; Z79.84 Long term (current) use of oral hypoglycemic drugs; Z95.828 Presence of other vascular implants and grafts
CPT/HCPCS: 0240U; 36415; 36416; 36600; 51701; 70450; 70553; 71045; 76770; 80048; 80053; 80202; 80306; 80307; 81003; 81015; 82140; 82565; 82607; 82746; 82805; 83605; 83690; 83735; 84100; 84300; 84443; 84484; 85007; 85025; 85027; 85610; 86140; 87040; 87086; 87149; 87340; 90935; 93005; 93010; 93970; 94002; 94003; 94640; 94660; 95712; 95819; 95957; 96365; 96375; 96376; A9579; C9113; G0257; J0282; J0360; J0692; J1100; J1610; J1630; J1642; J1644; J1815; J1940; J2060; J2185; J2250; J2270; J2704; J2920; J3010; J3370; J3411; J3475; J3480; J3486; J3490; J7042; J7050; J7070; J7620; S0028

== ENCOUNTER 2021-05-29 11:17 | Inpatient (IN) | payer OTHER, MEDICARE ==
[2021-05-29 11:42] LABS: #Eosinphils 0.3 thou/uL (0.0-0.7); #Lymphocytes 1.6 thou/uL (1.20-3.40); #Monocytes 1.2 thou/uL (0.11-0.59); #Neutrophils 5.4 thou/uL (1.40-6.50); %Basophils 0.5 % (0.0-1.0); %Eosinophils 3.4 % (0.0-10.0); %Lymphocytes 18.2 % (21.0-51.0); %Monocytes 14.3 % (0.0-10.0); %Neutrophils 63.6 % (42.0-75.0); Hemoglobin 12.5 g/dL (14.0-18.0); Mean Corpuscular HGB CONC 33.9 g/dL (32.0-36.0); Mean Corpuscular Hemoglobin 34.6 pg (27.0-31.0); Mean Platelet Volume 7.9 fL (7.4-10.4); Platelet Count 214 thou/uL (130-400); RBC Distribution Width 14.7 % (11.5-14.5); Red Blood Cell (RBC) Count 3.63 mill/uL (4.70-6.10); White Blood Cell (WBC) Count 8.5 thou/uL (4.8-10.8)
[2021-05-29 12:10] LABS: ALT (SGPT) 37 U/L (8-55); AST (SGOT) 93 U/L (5-34); Albumin 4.1 g/dL (3.4-4.8); Alkaline Phosphatase 58 U/L (40-110); Anion Gap 20 mmol/L (10-20); BUN (Urea Nitrogen) 33 mg/dL (8.4-25.7); Bilirubin, Total 0.5 mg/dL (0.2-1.2); Calc. Creatinine Clearance 0 mL/min (70-130); Calcium 9.8 mg/dL (7.8-10.44); Carbon Dioxide 27 mmol/L (23-31); Chloride 94 mmol/L (98-107); Globulin 3.8 g/dL (2.4-3.5); Glucose 94 mg/dL (80-115); Protein, Total 7.9 g/dL (5.8-8.1); Sodium 136 mmol/L (136-145)
[2021-05-29 12:26] LABS: Lipase Less than 32 U/L (8-78)
[2021-05-29 12:41] LABS: Bilirubin Negative (Negative); Blood, Urine 1+ (Negative); Clarity Turbid (Clear); Glucose, Urine (Dipstick) Normal (Negative); Ketone, Urine 10 mg/dL (Negative); Leukocyte 500 Leu/uL (Negative); Nitrite Negative (Negative); Protein, Urine (Dipstick) 20 mg/dL (Neg-Trace); RBC/HPF 0-3 HPF (0-3); Specific Gravity, Urine 1.021 (1.002-1.036); Squamous Epithelial 0-3 HPF (0-3); Urobilinogen Normal mg/dL (Less than 2)
[2021-05-29 12:42] LABS: Bacteria/HPF 1+ HPF (None Seen)
[2021-05-29] MEDS ORDERED: methylPREDNISolone Sod Succ/PF 125 MG/2 ML VIAL ONE (14:00)
[2021-05-29] MEDS ORDERED: cefTRIAXone\\ROCEPHIN 1 GM VIAL ONE (14:00)
[2021-05-29] MEDS ORDERED: Famotidine/PF 20 mg/2ml Vial ONE (14:00)
[2021-05-29] MEDS ORDERED: Acetaminophen 325 MG TAB PO PRN ×2 (15:16→16:00)
[2021-05-29] MEDS ORDERED: Dextrose 50% Abboject 50 ML SYRINGE SLOW IVP PRN (15:27)
[2021-05-29] MEDS ORDERED: Dextrose 5% in Water 1,000 ML IV PRN (15:27)
[2021-05-29] MEDS ORDERED: HumaLOG 300 UNITS/3 ML VIAL SC PRN (15:27)
[2021-05-29] MEDS ORDERED: Sodium Chloride 0.9% 1,000 ML IV SCH (15:30)
[2021-05-29] MEDS ORDERED: Electrolyte Replacement Protocol 1 EACH FS SCH (15:30)
[2021-05-29] MEDS ORDERED: Ondansetron ODT 4 MG TAB SL PRN (16:00)
[2021-05-29] MEDS ORDERED: Ondansetron PF 4 MG/2 ML Vial IVP PRN (16:00)
[2021-05-29 16:34] LABS: Amphetamine Not Detected (NotDetected); Barbiturates Screen Not Detected (NotDetected); Benzodiazepine Screen Not Detected (NotDetected); Cocaine Metabolite Screen Not Detected (NotDetected); Methadone Not Detected (NotDetected); Methamphetamine Not Detected (NotDetected); Opiate Screen Not Detected (NotDetected); Oxycodone Screen Not Detected (NotDetected); Phencyclidine (PCP) Not Detected (NotDetected); THC/Cannabinoid Screen Not Detected (NotDetected); Tricyclic Screen Not Detected (NotDetected)
[2021-05-29 16:56] LABS: Alcohol Less than 10 mg/dL (Less than 10); Magnesium 1.9 mg/dL (1.6-2.6)
[2021-05-29] MEDS: diphenhydrAMINE 25 MG CAP PO SCH (17:32)
[2021-05-29] MEDS ORDERED: Electrolyte Replacement Protocol FS PRN (18:00)
[2021-05-29] MEDS: Cefepime 1 GM in Sodium Chloride 0.9% 100 ML IVPB SCH (18:04)
[2021-05-29] MEDS: methylPREDNISolone Sod Succ 40 MG VIAL IVP SCH ×2 (18:05→23:50)
[2021-05-29] MEDS: Vancomycin 1 GM in Premix Bag 1 BAG IVPB SCH (20:43)
[2021-05-29] MEDS: Famotidine/PF 20 mg/2ml Vial SLOW IVP SCH (20:44)
[2021-05-29] MEDS: Heparin 5,000 UNITS/ML VIAL SC SCH (20:44)
[2021-05-29] MEDS: Nystatin Powder 15 GM BOT TOP SCH (23:50)
[2021-05-30] MEDS ORDERED: Magnesium 2 GM/50 ML 2 GM in Premix Bag 1 BAG IVPB SCH (00:30)
[2021-05-30] MEDS: diphenhydrAMINE 25 MG CAP PO SCH ×2 (01:42→10:12)
[2021-05-30 04:57] LABS: #Lymphocytes 0.5 thou/uL (1.20-3.40); #Monocytes 0.2 thou/uL (0.11-0.59); #Neutrophils 5.9 thou/uL (1.40-6.50); %Basophils 0.2 % (0.0-1.0); %Eosinophils 0.3 % (0.0-10.0); %Monocytes 2.7 % (0.0-10.0); %Neutrophils 89.8 % (42.0-75.0); Mean Corpuscular HGB CONC 32.4 g/dL (32.0-36.0); Mean Corpuscular Hemoglobin 33.7 pg (27.0-31.0); Mean Platelet Volume 8.1 fL (7.4-10.4); Platelet Count 207 thou/uL (130-400); RBC Distribution Width 14.9 % (11.5-14.5); Red Blood Cell (RBC) Count 3.55 mill/uL (4.70-6.10); White Blood Cell (WBC) Count 6.6 thou/uL (4.8-10.8)
[2021-05-30 05:20] LABS: Anion Gap 23 mmol/L (10-20); BUN (Urea Nitrogen) 34 mg/dL (8.4-25.7); Calc. Creatinine Clearance 50 mL/min (70-130); Calcium 9.1 mg/dL (7.8-10.44); Carbon Dioxide 20 mmol/L (23-31); Chloride 98 mmol/L (98-107); Glucose 156 mg/dL (80-115); Potassium 4.9 mmol/L (3.5-5.1); Sodium 136 mmol/L (136-145)
[2021-05-30] MEDS: Cefepime 1 GM in Sodium Chloride 0.9% 100 ML IVPB SCH ×2 (06:01→16:24)
[2021-05-30] MEDS: methylPREDNISolone Sod Succ 40 MG VIAL IVP SCH ×3 (06:01→21:51)
[2021-05-30] MEDS ORDERED: FLU VACC QS2021-22(65YR UP)/PF 240 MCG/0.7 ML SYRINGE IM ONE (09:00)
[2021-05-30] MEDS: Heparin 5,000 UNITS/ML VIAL SC SCH ×3 (10:13→21:51)
[2021-05-30] MEDS: Folic Acid 1 MG TAB PO SCH (10:13)
[2021-05-30] MEDS: Metoprolol Tartrate 25 MG TAB PO SCH ×2 (10:13→21:51)
[2021-05-30] MEDS: Nystatin Powder 15 GM BOT TOP SCH ×2 (10:13→21:59)
[2021-05-30] MEDS: Famotidine/PF 20 mg/2ml Vial SLOW IVP SCH (10:30)
[2021-05-30] MEDS: HumaLOG 300 UNITS/3 ML VIAL SC PRN (11:47)
[2021-05-30 15:34] LABS: SARS-CoV-2 PCR by NAA Not Detected (NotDetected)
[2021-05-30] MEDS: Gemfibrozil 600 MG TAB PO SCH (16:20)
[2021-05-30] MEDS: Vancomycin 1 GM in Premix Bag 1 BAG IVPB SCH (21:50)
[2021-05-30] MEDS: Aspirin Chewable 81 MG TAB PO SCH (21:51)
[2021-05-30] MEDS: HYDROcodone/Acetaminophen 5/325 mg Tablet PO PRN (21:51)
[2021-05-31 05:06] LABS: #Lymphocytes 0.6 thou/uL (1.20-3.40); #Monocytes 0.6 thou/uL (0.11-0.59); %Eosinophils 0.3 % (0.0-10.0); %Lymphocytes 8.4 % (21.0-51.0); %Monocytes 8.7 % (0.0-10.0); %Neutrophils 82.6 % (42.0-75.0); Mean Corpuscular HGB CONC 31.1 g/dL (32.0-36.0); Mean Corpuscular Hemoglobin 33.2 pg (27.0-31.0); Mean Platelet Volume 8.3 fL (7.4-10.4); Platelet Count 228 thou/uL (130-400); Red Blood Cell (RBC) Count 3.62 mill/uL (4.70-6.10); White Blood Cell (WBC) Count 7.2 thou/uL (4.8-10.8)
[2021-05-31 05:33] LABS: Glucose 118 mg/dL (80-115)
[2021-05-31 05:34] LABS: Carbon Dioxide 17 mmol/L (23-31)
[2021-05-31 05:35] LABS: Phosphorus 2.7 mg/dL (2.3-4.7)
[2021-05-31 05:36] LABS: Calc. Creatinine Clearance 57 mL/min (70-130)
[2021-05-31 05:37] LABS: BUN (Urea Nitrogen) 34 mg/dL (8.4-25.7)
[2021-05-31 05:38] LABS: Magnesium 2.5 mg/dL (1.6-2.6)
[2021-05-31 05:43] LABS: Chloride 99 mmol/L (98-107); Potassium 5.3 mmol/L (3.5-5.1); Sodium 131 mmol/L (136-145)
[2021-05-31 05:45] LABS: Anion Gap 20 mmol/L (10-20)
[2021-05-31] MEDS: methylPREDNISolone Sod Succ 40 MG VIAL IVP SCH (06:11)
[2021-05-31] MEDS: Cefepime 1 GM in Sodium Chloride 0.9% 100 ML IVPB SCH ×2 (06:11→16:55)
[2021-05-31] MEDS ORDERED: Loperamide HCl 2 MG CAP PO PRN (06:19)
[2021-05-31] MEDS ORDERED: Ondansetron PF 4 MG/2 ML Vial IVP PRN (06:19)
[2021-05-31] MEDS ORDERED: Ondansetron ODT 4 MG TAB PO PRN (06:19)
[2021-05-31] MEDS ORDERED: Calcium Carbonate 500 MG ChewTAB PO PRN (06:19)
[2021-05-31] MEDS ORDERED: Hydrocerin (Eucerin) Cream 120 gm Jar TOP PRN (06:19)
[2021-05-31] MEDS ORDERED: GUAIFENESIN SF SOLN 200 MG/10 ML UDCUP PO PRN (06:19)
[2021-05-31] MEDS ORDERED: Sodium Chloride 0.65% Nasal 44 ML BOT EA NARE PRN (06:19)
[2021-05-31] MEDS ORDERED: Cepastat Lozenges 1 LOZ PO PRN (06:19)
[2021-05-31] MEDS ORDERED: Loratadine 10 MG TAB PO PRN (06:19)
[2021-05-31] MEDS: Gemfibrozil 600 MG TAB PO SCH ×2 (07:00→15:23)
[2021-05-31] MEDS: Heparin 5,000 UNITS/ML VIAL SC SCH ×3 (08:55→20:48)
[2021-05-31] MEDS: Metoprolol Tartrate 25 MG TAB PO SCH ×2 (08:55→20:48)
[2021-05-31] MEDS: Multivitamin W/ Minerals 1 TAB PO SCH (08:55)
[2021-05-31] MEDS: Folic Acid 1 MG TAB PO SCH (08:55)
[2021-05-31] MEDS: Nystatin Powder 15 GM BOT TOP SCH ×2 (08:55→20:49)
[2021-05-31] MEDS: Cyanocobalamin (Vitamin B-12) 1,000 MCG TAB PO SCH (08:55)
[2021-05-31] MEDS: Thiamine 100 MG TAB PO SCH (08:55)
[2021-05-31] MEDS: Sodium Bicarbonate Tab 325 MG TAB PO SCH ×3 (08:55→20:48)
[2021-05-31] MEDS: HumaLOG 300 UNITS/3 ML VIAL SC PRN (11:45)
[2021-05-31] MEDS: HYDROcodone/Acetaminophen 5/325 mg Tablet PO PRN ×2 (11:53→16:55)
[2021-05-31] MEDS: Lorazepam 1 MG TAB PO PRN (16:55)
[2021-05-31 19:40] LABS: Vancomycin, Trough 14.1 ug/mL
[2021-05-31] MEDS: Aspirin Chewable 81 MG TAB PO SCH (20:48)
[2021-05-31] MEDS: Vancomycin 1 GM in Premix Bag 1 BAG IVPB SCH (20:48)
[2021-06-01] MEDS ORDERED: Lorazepam 2 MG/ML VIAL SLOW IVP SCH (00:30)
[2021-06-01] MEDS: Cefepime 1 GM in Sodium Chloride 0.9% 100 ML IVPB SCH ×2 (06:06→17:08)
[2021-06-01] MEDS: Heparin 5,000 UNITS/ML VIAL SC SCH ×3 (09:00→21:12)
[2021-06-01] MEDS: Folic Acid 1 MG TAB PO SCH (09:00)
[2021-06-01] MEDS: Gemfibrozil 600 MG TAB PO SCH ×2 (09:00→17:08)
[2021-06-01] MEDS: Multivitamin W/ Minerals 1 TAB PO SCH (09:00)
[2021-06-01] MEDS: Sodium Bicarbonate Tab 325 MG TAB PO SCH ×3 (09:00→21:13)
[2021-06-01] MEDS: Metoprolol Tartrate 25 MG TAB PO SCH ×2 (09:00→21:13)
[2021-06-01] MEDS: Cyanocobalamin (Vitamin B-12) 1,000 MCG TAB PO SCH (09:00)
[2021-06-01] MEDS: Nystatin Powder 15 GM BOT TOP SCH ×2 (09:01→23:19)
[2021-06-01] MEDS: Thiamine 100 MG TAB PO SCH (09:01)
[2021-06-01] MEDS: hydrALAZINE 20 MG/ML VIAL SLOW IVP PRN (11:38)
[2021-06-01] MEDS: Lorazepam 1 MG TAB PO PRN ×2 (13:51→21:13)
[2021-06-01 14:13] LABS: Anion Gap 18 mmol/L (10-20); BUN (Urea Nitrogen) 25 mg/dL (8.4-25.7); Calc. Creatinine Clearance 82 mL/min (70-130); Calcium 9.4 mg/dL (7.8-10.44); Carbon Dioxide 21 mmol/L (23-31); Chloride 98 mmol/L (98-107); Glucose 117 mg/dL (80-115); Potassium 4.1 mmol/L (3.5-5.1); Sodium 133 mmol/L (136-145)
[2021-06-01 15:08] LABS: Band 2 % (5-11); Hemoglobin 13.2 g/dL (14.0-18.0); Lymphocytes 15 % (21-51); MDiff Complete? YES; Macrocytosis SLIGHT = 6-15 cells (100X) (0-5/hpf); Mean Corpuscular HGB CONC 34.4 g/dL (32.0-36.0); Mean Corpuscular Hemoglobin 34.9 pg (27.0-31.0); Mean Platelet Volume 7.4 fL (7.4-10.4); Metamyelocyte 1 % (0-0); Monocytes 21 % (0-10); Neutrophil 60 % (42-75); Nucleated RBC 1 % (0); Platelet Count 276 thou/uL (130-400); Polychromasia SLIGHT = 2-3 cells (100X) (0-2/hpf); RBC Distribution Width 14.9 % (11.5-14.5); Reactive Lymphocytes 1 % (0-10); Red Blood Cell (RBC) Count 3.79 mill/uL (4.70-6.10); White Blood Cell (WBC) Count 7.2 thou/uL (4.8-10.8)
[2021-06-01] MEDS: Vancomycin 1 GM in Premix Bag 1 BAG IVPB SCH (21:12)
[2021-06-01] MEDS: Aspirin Chewable 81 MG TAB PO SCH (21:13)
[2021-06-02 04:51] LABS: Hemoglobin 14.2 g/dL (14.0-18.0); Mean Platelet Volume 7.8 fL (7.4-10.4); Platelet Count 270 thou/uL (130-400); Red Blood Cell (RBC) Count 4.05 mill/uL (4.70-6.10); White Blood Cell (WBC) Count 6.9 thou/uL (4.8-10.8)
[2021-06-02 05:08] LABS: Anion Gap 16 mmol/L (10-20); BUN (Urea Nitrogen) 22 mg/dL (8.4-25.7); Calc. Creatinine Clearance 89 mL/min (70-130); Calcium 9.6 mg/dL (7.8-10.44); Carbon Dioxide 23 mmol/L (23-31); Chloride 99 mmol/L (98-107); Glucose 111 mg/dL (80-115); Potassium 4.2 mmol/L (3.5-5.1); Sodium 134 mmol/L (136-145)
[2021-06-02 05:41] LABS: Band 1 % (5-11); Eosinophils 2 % (0-10); Lymphocytes 21 % (21-51); MDiff Complete? YES; Metamyelocyte 1 % (0-0); Monocytes 19 % (0-10); Myelocyte 1 % (0-0); Neutrophil 55 % (42-75)
[2021-06-02] MEDS: hydrALAZINE 20 MG/ML VIAL SLOW IVP PRN (06:25)
[2021-06-02] MEDS: Cefepime 1 GM in Sodium Chloride 0.9% 100 ML IVPB SCH ×2 (06:25→17:23)
[2021-06-02] MEDS: Lorazepam 1 MG TAB PO PRN ×2 (07:38→15:46)
[2021-06-02] MEDS: Heparin 5,000 UNITS/ML VIAL SC SCH ×3 (09:30→21:14)
[2021-06-02] MEDS: Metoprolol Tartrate 25 MG TAB PO SCH ×2 (09:30→21:27)
[2021-06-02] MEDS: Folic Acid 1 MG TAB PO SCH (09:30)
[2021-06-02] MEDS: Thiamine 100 MG TAB PO SCH (09:30)
[2021-06-02] MEDS: Sodium Bicarbonate Tab 325 MG TAB PO SCH ×3 (09:30→21:27)
[2021-06-02] MEDS: Cyanocobalamin (Vitamin B-12) 1,000 MCG TAB PO SCH (09:30)
[2021-06-02] MEDS: Nystatin Powder 15 GM BOT TOP SCH ×2 (09:31→21:26)
[2021-06-02] MEDS: Gemfibrozil 600 MG TAB PO SCH ×2 (09:31→15:46)
[2021-06-02] MEDS: Multivitamin W/ Minerals 1 TAB PO SCH (09:31)
[2021-06-02 19:24] LABS: Vancomycin, Trough 15.2 ug/mL
[2021-06-02] MEDS: VANCOMYCIN 1.25 GM/250 ML BAG 1.25 GM in Premix Bag 1 BAG IVPB SCH (21:27)
[2021-06-02] MEDS: Aspirin Chewable 81 MG TAB PO SCH (21:27)
[2021-06-03 04:57] LABS: Hemoglobin 13.9 g/dL (14.0-18.0); Mean Corpuscular HGB CONC 33.2 g/dL (32.0-36.0); Mean Platelet Volume 7.6 fL (7.4-10.4); Platelet Count 265 thou/uL (130-400); RBC Distribution Width 15.5 % (11.5-14.5); Red Blood Cell (RBC) Count 3.97 mill/uL (4.70-6.10); White Blood Cell (WBC) Count 6.2 thou/uL (4.8-10.8)
[2021-06-03] MEDS: Cefepime 1 GM in Sodium Chloride 0.9% 100 ML IVPB SCH (05:06)
[2021-06-03] MEDS: hydrALAZINE 20 MG/ML VIAL SLOW IVP PRN (05:06)
[2021-06-03 05:17] LABS: Anion Gap 19 mmol/L (10-20); BUN (Urea Nitrogen) 17 mg/dL (8.4-25.7); Calc. Creatinine Clearance 90 mL/min (70-130); Calcium 9.5 mg/dL (7.8-10.44); Carbon Dioxide 20 mmol/L (23-31); Chloride 101 mmol/L (98-107); Cholesterol 327 mg/dl (< 200 Desired); Glucose 100 mg/dL (80-115); HDL Cholesterol 66 mg/dL (>60 Neg Risk); Potassium 4.5 mmol/L (3.5-5.1); Sodium 135 mmol/L (136-145)
[2021-06-03 05:36] LABS: Triglycerides 1661 mg/dL (Less than 150)
[2021-06-03] MEDS: Lorazepam 1 MG TAB PO PRN ×3 (05:43→20:36)
[2021-06-03 06:33] LABS: Eosinophils 1 % (0-10); Lymphocytes 34 % (21-51); MDiff Complete? YES; Macrocytosis SLIGHT = 6-15 cells (100X) (0-5/hpf); Monocytes 11 % (0-10); Neutrophil 54 % (42-75)
[2021-06-03] MEDS ORDERED: Lisinopril 20 MG TAB PO SCH (08:15)
[2021-06-03] MEDS: Metoprolol Tartrate 25 MG TAB PO SCH ×2 (09:18→20:37)
[2021-06-03] MEDS: Folic Acid 1 MG TAB PO SCH (09:18)
[2021-06-03] MEDS: Multivitamin W/ Minerals 1 TAB PO SCH (09:18)
[2021-06-03] MEDS: Sodium Bicarbonate Tab 325 MG TAB PO SCH ×3 (09:18→20:36)
[2021-06-03] MEDS: Cyanocobalamin (Vitamin B-12) 1,000 MCG TAB PO SCH (09:19)
[2021-06-03] MEDS: Gemfibrozil 600 MG TAB PO SCH (09:19)
[2021-06-03] MEDS: Nystatin Powder 15 GM BOT TOP SCH ×2 (09:19→20:37)
[2021-06-03] MEDS: Thiamine 100 MG TAB PO SCH (09:19)
[2021-06-03] MEDS: Heparin 5,000 UNITS/ML VIAL SC SCH ×3 (09:20→20:36)
[2021-06-03 13:07] LABS: Glucose 102 mg/dL (80-115)
[2021-06-03] MEDS ORDERED: Fenofibrate Nanocrystallized 145 MG TAB PO SCH ×2 (13:12→13:30)
[2021-06-03 17:41] LABS: Glucose 125 mg/dL (80-115)
[2021-06-03] MEDS: Aspirin Chewable 81 MG TAB PO SCH (20:36)
[2021-06-03] MEDS: VANCOMYCIN 1.25 GM/250 ML BAG 1.25 GM in Premix Bag 1 BAG IVPB SCH (20:37)
[2021-06-03 21:33] LABS: Glucose 94 mg/dL (80-115)
[2021-06-04 05:12] LABS: Cardiac Risk 5.4 (Less than 4.5); Cholesterol 327 mg/dl (< 200 Desired); HDL Cholesterol 61 mg/dL (>60 Neg Risk)
[2021-06-04 06:06] LABS: Triglycerides 1579 mg/dL (Less than 150)
[2021-06-04 07:49] LABS: Glucose 118 mg/dL (80-115)
[2021-06-04] MEDS: Fenofibrate Nanocrystallized 145 MG TAB PO SCH (08:58)
[2021-06-04] MEDS: Heparin 5,000 UNITS/ML VIAL SC SCH ×3 (08:58→21:31)
[2021-06-04] MEDS: Metoprolol Tartrate 25 MG TAB PO SCH ×2 (08:58→21:32)
[2021-06-04] MEDS: Lisinopril 20 MG TAB PO SCH (08:58)
[2021-06-04] MEDS: Folic Acid 1 MG TAB PO SCH (08:59)
[2021-06-04] MEDS: Thiamine 100 MG TAB PO SCH (08:59)
[2021-06-04] MEDS: Cyanocobalamin (Vitamin B-12) 1,000 MCG TAB PO SCH (08:59)
[2021-06-04] MEDS: Multivitamin W/ Minerals 1 TAB PO SCH (08:59)
[2021-06-04] MEDS: Sodium Bicarbonate Tab 325 MG TAB PO SCH ×3 (08:59→21:32)
[2021-06-04] MEDS: HYDROcodone/Acetaminophen 5/325 mg Tablet PO PRN (08:59)
[2021-06-04] MEDS: Nystatin Powder 15 GM BOT TOP SCH ×2 (09:01→21:31)
[2021-06-04] MEDS: Lorazepam 1 MG TAB PO PRN ×2 (11:32→21:31)
[2021-06-04 12:23] LABS: Glucose 117 mg/dL (80-115)
[2021-06-04 14:23] VITALS: BMI 32.0
[2021-06-04 18:14] LABS: Glucose 132 mg/dL (80-115)
[2021-06-04 21:18] LABS: Glucose 183 mg/dL (80-115)
[2021-06-04 21:21] LABS: Vancomycin, Trough 18.5 ug/mL
[2021-06-04] MEDS: VANCOMYCIN 1.25 GM/250 ML BAG 1.25 GM in Premix Bag 1 BAG IVPB SCH (21:31)
[2021-06-04] MEDS: Aspirin Chewable 81 MG TAB PO SCH (21:31)
[2021-06-05 08:41] LABS: Cardiac Risk 5.5 (Less than 4.5); Cholesterol 349 mg/dl (< 200 Desired); Glucose 112 mg/dL (80-115); HDL Cholesterol 64 mg/dL (>60 Neg Risk)
[2021-06-05 08:59] LABS: Triglycerides 1609 mg/dL (Less than 150)
[2021-06-05] MEDS: Metoprolol Tartrate 25 MG TAB PO SCH ×2 (09:45→21:56)
[2021-06-05] MEDS: Lisinopril 20 MG TAB PO SCH (09:45)
[2021-06-05] MEDS: Folic Acid 1 MG TAB PO SCH (09:45)
[2021-06-05] MEDS: Fenofibrate Nanocrystallized 145 MG TAB PO SCH (09:45)
[2021-06-05] MEDS: Cyanocobalamin (Vitamin B-12) 1,000 MCG TAB PO SCH (09:45)
[2021-06-05] MEDS: Thiamine 100 MG TAB PO SCH (09:46)
[2021-06-05] MEDS: Multivitamin W/ Minerals 1 TAB PO SCH (09:46)
[2021-06-05] MEDS: HYDROcodone/Acetaminophen 5/325 mg Tablet PO PRN (09:46)
[2021-06-05] MEDS: Heparin 5,000 UNITS/ML VIAL SC SCH ×3 (09:46→21:56)
[2021-06-05] MEDS: Sodium Bicarbonate Tab 325 MG TAB PO SCH ×3 (09:46→21:56)
[2021-06-05] MEDS: Nystatin Powder 15 GM BOT TOP SCH ×2 (09:47→22:37)
[2021-06-05 12:01] LABS: Glucose 115 mg/dL (80-115)
[2021-06-05] MEDS ORDERED: Lisinopril 20 MG TAB PO SCH (15:07)
[2021-06-05] MEDS ORDERED: hydrALAZINE 25 MG TAB PO SCH (15:27)
[2021-06-05] MEDS ORDERED: NIFEdipine XL 60 MG TAB PO SCH (15:45)
[2021-06-05 17:25] LABS: Glucose 112 mg/dL (80-115)
[2021-06-05 21:31] LABS: Glucose 130 mg/dL (80-115)
[2021-06-05] MEDS: VANCOMYCIN 1.25 GM/250 ML BAG 1.25 GM in Premix Bag 1 BAG IVPB SCH (21:55)
[2021-06-05] MEDS: Aspirin Chewable 81 MG TAB PO SCH (21:56)
[2021-06-06 07:53] LABS: Glucose 112 mg/dL (80-115)
[2021-06-06] MEDS: Folic Acid 1 MG TAB PO SCH (09:56)
[2021-06-06] MEDS: Thiamine 100 MG TAB PO SCH (09:56)
[2021-06-06] MEDS: NIFEdipine XL 60 MG TAB PO SCH (09:56)
[2021-06-06] MEDS: Metoprolol Tartrate 25 MG TAB PO SCH ×2 (09:56→21:37)
[2021-06-06] MEDS: Sodium Bicarbonate Tab 325 MG TAB PO SCH ×3 (09:56→21:37)
[2021-06-06] MEDS: Multivitamin W/ Minerals 1 TAB PO SCH (09:56)
[2021-06-06] MEDS: Fenofibrate Nanocrystallized 145 MG TAB PO SCH (09:56)
[2021-06-06] MEDS: Cyanocobalamin (Vitamin B-12) 1,000 MCG TAB PO SCH (09:56)
[2021-06-06] MEDS: Heparin 5,000 UNITS/ML VIAL SC SCH ×3 (09:57→21:35)
[2021-06-06] MEDS: Nystatin Powder 15 GM BOT TOP SCH ×2 (09:57→21:39)
[2021-06-06 12:03] LABS: Glucose 112 mg/dL (80-115)
[2021-06-06 17:48] LABS: Glucose 125 mg/dL (80-115)
[2021-06-06] MEDS: HYDROcodone/Acetaminophen 5/325 mg Tablet PO PRN (19:49)
[2021-06-06 20:30] LABS: Vancomycin, Trough 18.4 ug/mL
[2021-06-06 20:43] LABS: Glucose 143 mg/dL (80-115)
[2021-06-06] MEDS ORDERED: Atorvastatin Calcium 40 MG TAB PO SCH (21:00)
[2021-06-06] MEDS: Aspirin Chewable 81 MG TAB PO SCH (21:36)
[2021-06-06] MEDS: VANCOMYCIN 1.25 GM/250 ML BAG 1.25 GM in Premix Bag 1 BAG IVPB SCH (21:37)
[2021-06-07] MEDS: HYDROcodone/Acetaminophen 5/325 mg Tablet PO PRN (05:09)
[2021-06-07 08:58] LABS: Glucose 116 mg/dL (80-115)
[2021-06-07] MEDS: Folic Acid 1 MG TAB PO SCH (09:56)
[2021-06-07] MEDS: Fenofibrate Nanocrystallized 145 MG TAB PO SCH (09:56)
[2021-06-07] MEDS: NIFEdipine XL 60 MG TAB PO SCH (09:56)
[2021-06-07] MEDS: Multivitamin W/ Minerals 1 TAB PO SCH (09:56)
[2021-06-07] MEDS: Cyanocobalamin (Vitamin B-12) 1,000 MCG TAB PO SCH (09:57)
[2021-06-07] MEDS: Heparin 5,000 UNITS/ML VIAL SC SCH (09:57)
[2021-06-07] MEDS: Metoprolol Tartrate 25 MG TAB PO SCH (09:57)
[2021-06-07] MEDS: Sodium Bicarbonate Tab 325 MG TAB PO SCH (09:57)
[2021-06-07] MEDS: Nystatin Powder 15 GM BOT TOP SCH (09:57)
[2021-06-07] MEDS: Thiamine 100 MG TAB PO SCH (09:57)
[2021-06-07 11:41] LABS: Glucose 113 mg/dL (80-115)
[2021-06-07 12:48] VITALS: BP 134/62; TEMP 97.9
== END 2021-06-07 13:19 | DRG 177 ==
LOC: ERS 11:17 → 2NO 13:38 → OBSVTOIN 05-30 08:00
PROVIDERS: ADMIT Internal Medicine; ATTEND Internal Medicine
PROC: 02HV33Z Insertion of Infusion Device into Superior Vena Cava, Percutaneous Approach (ICD-10-PCS; principal; 2021-06-05)
PROC: B548ZZA Ultrasonography of Superior Vena Cava, Guidance (ICD-10-PCS; 2021-06-05)
PROC: B5181ZA Fluoroscopy of Superior Vena Cava using Low Osmolar Contrast, Guidance (ICD-10-PCS; 2021-06-05)
DX: J69.0 Pneumonitis due to inhalation of food and vomit (principal); G93.41 Metabolic encephalopathy; Z20.822 Contact with and (suspected) exposure to COVID-19; T78.2XXA Anaphylactic shock, unspecified, initial encounter; L03.116 Cellulitis of left lower limb; N17.9 Acute kidney failure, unspecified; N30.01 Acute cystitis with hematuria; E87.2 Acidosis; R78.81 Bacteremia; F10.20 Alcohol dependence, uncomplicated; D63.1 Anemia in chronic kidney disease; E66.9 Obesity, unspecified; J44.9 Chronic obstructive pulmonary disease, unspecified; I12.9 Hypertensive chronic kidney disease with stage 1 through stage 4 chronic kidney disease, or unspecified chronic kidney disease; E78.5 Hyperlipidemia, unspecified; E11.51 Type 2 diabetes mellitus with diabetic peripheral angiopathy without gangrene; E11.22 Type 2 diabetes mellitus with diabetic chronic kidney disease; I25.10 Atherosclerotic heart disease of native coronary artery without angina pectoris; I48.0 Paroxysmal atrial fibrillation; N18.30 Chronic kidney disease, stage 3 unspecified; E78.1 Pure hyperglyceridemia; Z79.82 Long term (current) use of aspirin; Z79.899 Other long term (current) drug therapy; Z95.0 Presence of cardiac pacemaker; Z87.891 Personal history of nicotine dependence; Z68.32 Body mass index [BMI] 32.0-32.9, adult; Z89.511 Acquired absence of right leg below knee; Z87.11 Personal history of peptic ulcer disease; Z78.1 Physical restraint status
CPT/HCPCS: 36415; 36416; 36569; 51701; 71045; 80048; 80053; 80061; 80202; 80306; 80307; 81003; 81015; 82565; 82947; 83605; 83690; 83735; 84100; 84145; 84484; 85025; 87040; 87077; 87149; 87186; 93005; 93306; 96365; 96372; 96374; 96375; 96376; C1751; G0378; J0360; J0692; J0696; J1644; J1815; J2060; J2920; J2930; J3370; J3475; J3490; J7050; S0028; U0003; U0005

== ENCOUNTER 2021-07-07 12:30 | Inpatient (IN) | payer MEDICARE, OTHER ==
[2021-07-07 14:09] LABS: #Eosinphils 0.1 thou/uL (0.0-0.7); #Lymphocytes 0.9 thou/uL (1.20-3.40); #Monocytes 1.1 thou/uL (0.11-0.59); %Basophils 0.2 % (0.0-1.0); %Eosinophils 0.7 % (0.0-10.0); %Lymphocytes 8.1 % (21.0-51.0); %Monocytes 9.9 % (0.0-10.0); %Neutrophils 81.1 % (42.0-75.0); Hemoglobin 11.5 g/dL (14.0-18.0); Mean Corpuscular Hemoglobin 35.4 pg (27.0-31.0); Mean Platelet Volume 8.3 fL (7.4-10.4); Platelet Count 267 thou/uL (130-400); RBC Distribution Width 14.5 % (11.5-14.5); Red Blood Cell (RBC) Count 3.26 mill/uL (4.70-6.10); White Blood Cell (WBC) Count 11.1 thou/uL (4.8-10.8)
[2021-07-07 14:35] LABS: Acetaminophen Less than 6.0 mcg/mL (10.0-30.0); Alcohol Less than 10 mg/dL (Less than 10); CK (CPK) 302 U/L (30-200); Salicylate Less than 8.0 mg/dL (15.0-30.0)
[2021-07-07 14:36] LABS: ALT (SGPT) 17 U/L (8-55); AST (SGOT) 30 U/L (5-34); Albumin 2.9 g/dL (3.4-4.8); Alkaline Phosphatase 69 U/L (40-110); Anion Gap 17 mmol/L (10-20); BUN (Urea Nitrogen) 18 mg/dL (8.4-25.7); Bilirubin, Total 0.4 mg/dL (0.2-1.2); Calc. Creatinine Clearance 0 mL/min (70-130); Calcium 9.1 mg/dL (7.8-10.44); Carbon Dioxide 27 mmol/L (23-31); Chloride 95 mmol/L (98-107); Globulin 4.1 g/dL (2.4-3.5); Glucose 128 mg/dL (80-115); Potassium 4.6 mmol/L (3.5-5.1); Sodium 134 mmol/L (136-145)
[2021-07-07 15:50] LABS: Amphetamine Not Detected (NotDetected); Barbiturates Screen Not Detected (NotDetected); Benzodiazepine Screen Not Detected (NotDetected); Cocaine Metabolite Screen Not Detected (NotDetected); Methadone Not Detected (NotDetected); Methamphetamine Not Detected (NotDetected); Opiate Screen Not Detected (NotDetected); Oxycodone Screen Not Detected (NotDetected); Phencyclidine (PCP) Not Detected (NotDetected); THC/Cannabinoid Screen Not Detected (NotDetected); Tricyclic Screen Detected (NotDetected)
[2021-07-07 17:05] LABS: Bilirubin Negative (Negative); Blood, Urine Negative (Negative); Clarity Clear (Clear); Glucose, Urine (Dipstick) Normal (Negative); Ketone, Urine Negative (Negative); Leukocyte Negative Leu/uL (Negative); Nitrite Negative (Negative); Protein, Urine (Dipstick) Negative (Neg-Trace); Specific Gravity, Urine 1.017 (1.002-1.036); Urobilinogen Normal mg/dL (Less than 2)
[2021-07-07 17:17] LABS: SARS-CoV-2 NAA Rapid Test DETECTED (NotDetected)
[2021-07-07] MEDS ORDERED: Thiamine HCl 200 MG/2 ML VIAL SLOW IVP SCH (17:30)
[2021-07-07] MEDS ORDERED: Folic Acid 1 MG, Multivitamins, Adult 10 ML in Dextrose 5 %-0.45 % NaCl 1,000 ML IV SCH (17:30)
[2021-07-07] MEDS ORDERED: HumaLOG 300 UNITS/3 ML VIAL SC PRN (21:27)
[2021-07-07] MEDS ORDERED: Guaifenesin DM 100-10/5 ML UDCUP PO PRN (21:27)
[2021-07-07] MEDS ORDERED: Dextrose 50% Abboject 50 ML SYRINGE SLOW IVP PRN (21:27)
[2021-07-07] MEDS ORDERED: Dextrose 5% in Water 1,000 ML IV PRN (21:27)
[2021-07-07] MEDS ORDERED: Ondansetron PF 4 MG/2 ML Vial IVP PRN (21:27)
[2021-07-07] MEDS ORDERED: Morphine 2 MG/ML VIAL SLOW IVP PRN (21:29)
[2021-07-07] MEDS ORDERED: hydrALAZINE 20 MG/ML VIAL SLOW IVP PRN (21:29)
[2021-07-07] MEDS ORDERED: Lorazepam 2 MG/ML VIAL SLOW IVP PRN (21:30)
[2021-07-08] MEDS ORDERED: Acetaminophen 325 MG TAB ONE (03:06)
[2021-07-08] MEDS: Acetaminophen 325 MG TAB PO PRN ×2 (03:13→23:52)
[2021-07-08 05:24] LABS: Band 9 % (5-11); Hemoglobin 11.3 g/dL (14.0-18.0); Hypochromia SLIGHT = 6-15 cells (100X) (0-5/hpf); Lymphocytes 16 % (21-51); MDiff Complete? YES; Macrocytosis SLIGHT = 6-15 cells (100X) (0-5/hpf); Mean Corpuscular HGB CONC 34.2 g/dL (32.0-36.0); Mean Corpuscular Hemoglobin 34.9 pg (27.0-31.0); Mean Platelet Volume 7.8 fL (7.4-10.4); Monocytes 7 % (0-10); Neutrophil 68 % (42-75); Platelet Count 232 thou/uL (130-400); Platelet Morphology Comment Appears Adequate; RBC Distribution Width 14.6 % (11.5-14.5); Red Blood Cell (RBC) Count 3.25 mill/uL (4.70-6.10); White Blood Cell (WBC) Count 8.6 thou/uL (4.8-10.8)
[2021-07-08 05:32] LABS: ALT (SGPT) 17 U/L (8-55); AST (SGOT) 26 U/L (5-34); Alkaline Phosphatase 67 U/L (40-110); Anion Gap 19 mmol/L (10-20); BUN (Urea Nitrogen) 21 mg/dL (8.4-25.7); Bilirubin, Total 0.4 mg/dL (0.2-1.2); Calc. Creatinine Clearance 0 mL/min (70-130); Calcium 8.9 mg/dL (7.8-10.44); Carbon Dioxide 25 mmol/L (23-31); Chloride 97 mmol/L (98-107); Globulin 3.6 g/dL (2.4-3.5); Glucose 109 mg/dL (80-115); Potassium 4.2 mmol/L (3.5-5.1); Protein, Total 6.6 g/dL (5.8-8.1); Sodium 137 mmol/L (136-145)
[2021-07-08] MEDS: Nicotine 14 MG PATCH TD SCH ×2 (07:56→22:27)
[2021-07-08] MEDS: Albuterol 200 PUFF (6.7GM INHALER) INH SCH ×7 (07:56→22:44)
[2021-07-08] MEDS ORDERED: Enoxaparin Sodium 40 MG/0.4 ML SYRINGE ONE (08:20)
[2021-07-08] MEDS ORDERED: Dexamethasone 4 MG TAB ONE (08:20)
[2021-07-08] MEDS ORDERED: Famotidine 20 MG TAB ONE (08:20)
[2021-07-08] MEDS ORDERED: Albuterol 200 PUFF (6.7GM INHALER) ONE (08:21)
[2021-07-08] MEDS: Dexamethasone 1 MG TAB PO SCH ×2 (08:24→16:53)
[2021-07-08] MEDS: Enoxaparin Sodium 40 MG/0.4 ML SYRINGE SC SCH (08:24)
[2021-07-08] MEDS: Famotidine 20 MG TAB PO SCH ×2 (08:25→22:27)
[2021-07-08] MEDS ORDERED: Furosemide 40 MG TAB ONE (08:36)
[2021-07-08] MEDS: Zinc Sulfate 220 MG CAP PO SCH (11:34)
[2021-07-08] MEDS ORDERED: Zinc Sulfate 220 MG CAP ONE (11:37)
[2021-07-08] MEDS ORDERED: VANCOMYCIN 1.75 GM/350 ML BAG 1.75 GM in Premix Bag 1 BAG IVPB SCH (21:00)
[2021-07-08] MEDS ORDERED: HumaLOG 300 UNITS/3 ML VIAL SC PRN (21:23)
[2021-07-08] MEDS: Metoprolol Tartrate 25 MG TAB PO SCH (22:27)
[2021-07-08] MEDS: Aspirin Chewable 81 MG TAB PO SCH (22:27)
[2021-07-09] MEDS ORDERED: Melatonin 3 MG TAB PO SCH (00:15)
[2021-07-09] MEDS: Albuterol 200 PUFF (6.7GM INHALER) INH SCH ×4 (03:42→16:18)
[2021-07-09] MEDS: Acetaminophen 325 MG TAB PO PRN ×2 (04:31→12:00)
[2021-07-09 06:45] LABS: #Eosinphils 0.1 thou/uL (0.0-0.7); #Monocytes 0.7 thou/uL (0.11-0.59); #Neutrophils 6.2 thou/uL (1.40-6.50); %Basophils 0.6 % (0.0-1.0); %Eosinophils 0.7 % (0.0-10.0); %Lymphocytes 13.1 % (21.0-51.0); %Monocytes 8.3 % (0.0-10.0); %Neutrophils 77.4 % (42.0-75.0); Hemoglobin 11.3 g/dL (14.0-18.0); Mean Corpuscular HGB CONC 33.9 g/dL (32.0-36.0); Mean Corpuscular Hemoglobin 34.9 pg (27.0-31.0); Mean Platelet Volume 7.9 fL (7.4-10.4); Platelet Count 266 thou/uL (130-400); RBC Distribution Width 14.8 % (11.5-14.5); Red Blood Cell (RBC) Count 3.23 mill/uL (4.70-6.10)
[2021-07-09 07:10] LABS: Anion Gap 17 mmol/L (10-20); BUN (Urea Nitrogen) 15 mg/dL (8.4-25.7); Calc. Creatinine Clearance 88 mL/min (70-130); Calcium 8.7 mg/dL (7.8-10.44); Carbon Dioxide 24 mmol/L (23-31); Chloride 99 mmol/L (98-107); Glucose 96 mg/dL (80-115); Potassium 4.8 mmol/L (3.5-5.1); Sodium 135 mmol/L (136-145)
[2021-07-09] MEDS: Thiamine 100 MG TAB PO SCH (09:46)
[2021-07-09] MEDS: Zinc Sulfate 220 MG CAP PO SCH (09:46)
[2021-07-09] MEDS: NIFEdipine XL 60 MG TAB PO SCH (09:46)
[2021-07-09] MEDS: Furosemide 20 MG TAB PO SCH (09:46)
[2021-07-09] MEDS: Metoprolol Tartrate 25 MG TAB PO SCH ×2 (09:46→21:43)
[2021-07-09] MEDS: Fenofibrate Nanocrystallized 145 MG TAB PO SCH (09:46)
[2021-07-09] MEDS: Rosuvastatin 20 MG TAB PO SCH (09:47)
[2021-07-09] MEDS: Enoxaparin Sodium 40 MG/0.4 ML SYRINGE SC SCH (09:47)
[2021-07-09] MEDS: Famotidine 20 MG TAB PO SCH ×2 (09:47→21:42)
[2021-07-09] MEDS: Folic Acid 1 MG TAB PO SCH (09:47)
[2021-07-09] MEDS: Morphine 4 MG/ML VIAL SLOW IVP PRN (17:17)
[2021-07-09] MEDS: Aspirin Chewable 81 MG TAB PO SCH (21:43)
[2021-07-09] MEDS: Nicotine 14 MG PATCH TD SCH (22:31)
[2021-07-10 02:22] VITALS: BMI 307128.7
[2021-07-10 06:46] LABS: #Basophils 0.1 thou/uL (0.0-0.2); #Eosinphils 0.1 thou/uL (0.0-0.7); #Lymphocytes 1.5 thou/uL (1.20-3.40); #Neutrophils 6.5 thou/uL (1.40-6.50); %Basophils 0.6 % (0.0-1.0); %Eosinophils 0.5 % (0.0-10.0); %Lymphocytes 16.8 % (21.0-51.0); %Monocytes 10.9 % (0.0-10.0); %Neutrophils 71.2 % (42.0-75.0); Hemoglobin 11.3 g/dL (14.0-18.0); Mean Corpuscular HGB CONC 34.2 g/dL (32.0-36.0); Mean Corpuscular Hemoglobin 34.5 pg (27.0-31.0); Mean Platelet Volume 8.1 fL (7.4-10.4); Platelet Count 295 thou/uL (130-400); RBC Distribution Width 14.7 % (11.5-14.5); Red Blood Cell (RBC) Count 3.28 mill/uL (4.70-6.10); White Blood Cell (WBC) Count 9.1 thou/uL (4.8-10.8)
[2021-07-10 07:01] LABS: Anion Gap 17 mmol/L (10-20); BUN (Urea Nitrogen) 16 mg/dL (8.4-25.7); Calc. Creatinine Clearance 82 mL/min (70-130); Calcium 8.5 mg/dL (7.8-10.44); Carbon Dioxide 25 mmol/L (23-31); Chloride 98 mmol/L (98-107); Glucose 148 mg/dL (80-115); Potassium 3.7 mmol/L (3.5-5.1); Sodium 136 mmol/L (136-145)
[2021-07-10] MEDS: Albuterol 200 PUFF (6.7GM INHALER) INH SCH ×3 (07:46→13:01)
[2021-07-10] MEDS: Enoxaparin Sodium 40 MG/0.4 ML SYRINGE SC SCH (08:22)
[2021-07-10] MEDS: Folic Acid 1 MG TAB PO SCH (08:23)
[2021-07-10] MEDS: Metoprolol Tartrate 25 MG TAB PO SCH (08:23)
[2021-07-10] MEDS: Furosemide 20 MG TAB PO SCH (08:23)
[2021-07-10] MEDS: Fenofibrate Nanocrystallized 145 MG TAB PO SCH (08:23)
[2021-07-10] MEDS: Famotidine 20 MG TAB PO SCH (08:23)
[2021-07-10] MEDS: Zinc Sulfate 220 MG CAP PO SCH (08:24)
[2021-07-10] MEDS: Rosuvastatin 20 MG TAB PO SCH (08:24)
[2021-07-10] MEDS: Thiamine 100 MG TAB PO SCH (08:24)
[2021-07-10] MEDS: NIFEdipine XL 60 MG TAB PO SCH (08:24)
[2021-07-10] MEDS: Morphine 4 MG/ML VIAL SLOW IVP PRN (08:24)
[2021-07-10] MEDS ORDERED: FLU VACC QS2021-22(65YR UP)/PF 240 MCG/0.7 ML SYRINGE IM ONE (09:00)
[2021-07-10 12:15] VITALS: BP 117/63; TEMP 98.1
[2021-07-10] MEDS: Acetaminophen 325 MG TAB PO PRN (13:39)
== END 2021-07-10 15:05 | disposition home or self-care (01) | DRG 896 ==
LOC: ERS 12:30 → ERHOLD 17:05 → 2SW 07-08 19:12 → OBSVTOIN 07-09 10:41
PROVIDERS: ADMIT Internal Medicine; ATTEND Internal Medicine
PROC: 8E0ZXY6 Isolation (ICD-10-PCS; principal; 2021-07-09)
DX: F10.239 Alcohol dependence with withdrawal, unspecified (principal); G93.41 Metabolic encephalopathy; U07.1 COVID-19; E87.1 Hypo-osmolality and hyponatremia; I13.0 Hypertensive heart and chronic kidney disease with heart failure and stage 1 through stage 4 chronic kidney disease, or unspecified chronic kidney disease; I50.32 Chronic diastolic (congestive) heart failure; J44.0 Chronic obstructive pulmonary disease with (acute) lower respiratory infection; N18.9 Chronic kidney disease, unspecified; I48.91 Unspecified atrial fibrillation; W18.30XA Fall on same level, unspecified, initial encounter; S00.03XA Contusion of scalp, initial encounter; F17.210 Nicotine dependence, cigarettes, uncomplicated; I25.10 Atherosclerotic heart disease of native coronary artery without angina pectoris; I73.9 Peripheral vascular disease, unspecified; Z87.11 Personal history of peptic ulcer disease; Z79.899 Other long term (current) drug therapy; Z79.82 Long term (current) use of aspirin; Z95.810 Presence of automatic (implantable) cardiac defibrillator; Z89.511 Acquired absence of right leg below knee; Z86.14 Personal history of Methicillin resistant Staphylococcus aureus infection
CPT/HCPCS: 0240U; 36415; 36416; 70450; 71045; 72125; 72192; 80048; 80053; 80306; 80307; 81003; 82550; 84484; 85007; 85025; 85027; 87040; 96372; 96375; 96376; G0378; J1650; J1815; J2270; J3370; J3411; J7042; J8540

== ENCOUNTER 2021-07-16 09:50 | Inpatient (IN) | payer MEDICARE, OTHER ==
[2021-07-16 11:59] LABS: ALT (SGPT) 27 U/L (8-55); AST (SGOT) 46 U/L (5-34); Albumin 3.6 g/dL (3.4-4.8); Alkaline Phosphatase 68 U/L (40-110); Anion Gap 23 mmol/L (10-20); BUN (Urea Nitrogen) 24 mg/dL (8.4-25.7); Bilirubin, Total 0.6 mg/dL (0.2-1.2); Calc. Creatinine Clearance 0 mL/min (70-130); Calcium 8.6 mg/dL (7.8-10.44); Carbon Dioxide 20 mmol/L (23-31); Chloride 96 mmol/L (98-107); Globulin 3.8 g/dL (2.4-3.5); Glucose 73 mg/dL (80-115); Potassium 3.8 mmol/L (3.5-5.1); Protein, Total 7.4 g/dL (5.8-8.1); Sodium 135 mmol/L (136-145)
[2021-07-16 12:11] LABS: Hemoglobin 11.6 g/dL (14.0-18.0); Mean Corpuscular HGB CONC 32.7 g/dL (32.0-36.0); Mean Corpuscular Hemoglobin 33.6 pg (27.0-31.0); Mean Platelet Volume 8.8 fL (7.4-10.4); Platelet Count 340 thou/uL (130-400); RBC Distribution Width 15.3 % (11.5-14.5); Red Blood Cell (RBC) Count 3.46 mill/uL (4.70-6.10); White Blood Cell (WBC) Count 10.3 thou/uL (4.8-10.8)
[2021-07-16 12:22] LABS: Band 30 % (5-11); Lymphocytes 12 % (21-51); MDiff Complete? YES; Metamyelocyte 1 % (0-0); Monocytes 11 % (0-10); Neutrophil 46 % (42-75); Platelet Morphology Comment Appears Adequate; RBC Morphology Normal
[2021-07-16] MEDS ORDERED: Cefepime 2 GM VIAL ONE (12:58)
[2021-07-16] MEDS ORDERED: Dextrose 50% Abboject 50 ML SYRINGE SLOW IVP PRN (13:48)
[2021-07-16] MEDS ORDERED: HumaLOG 300 UNITS/3 ML VIAL SC PRN ×2 (13:48)
[2021-07-16] MEDS ORDERED: Dextrose 5% in Water 1,000 ML IV PRN (13:48)
[2021-07-16] MEDS ORDERED: Vancomycin 1 GM/200 ML BAG ONE (13:52)
[2021-07-16] MEDS ORDERED: metroNIDAZOLE 250 MG TAB ONE (14:05)
[2021-07-16] MEDS ORDERED: Sodium Chloride 0.9% 1,000 ML IV SCH (14:30)
[2021-07-16] MEDS ORDERED: Calcium Carbonate 500 MG ChewTAB PO PRN (14:59)
[2021-07-16] MEDS ORDERED: Ondansetron ODT 4 MG TAB PO PRN (14:59)
[2021-07-16] MEDS ORDERED: Nystatin Powder 15 GM BOT TOP PRN (16:14)
[2021-07-16] MEDS ORDERED: Lorazepam 1 MG TAB PO PRN (16:19)
[2021-07-16] MEDS ORDERED: Vancomycin HCl 750 MG in Sodium Chloride 0.9% 250 ML 250 ML IVPB SCH (16:30)
[2021-07-16] MEDS ORDERED: Electrolyte Replacement Protocol 1 EACH FS SCH (16:30)
[2021-07-16] MEDS ORDERED: Electrolyte Replacement Protocol FS PRN (16:45)
[2021-07-16] MEDS ORDERED: Multivit, Therapeutic 1 TAB PO SCH (16:45)
[2021-07-16] MEDS: Acetaminophen 325 MG TAB PO PRN (17:12)
[2021-07-16] MEDS: Rosuvastatin 20 MG TAB PO SCH (20:25)
[2021-07-16] MEDS: Aspirin Chewable 81 MG TAB PO SCH (20:25)
[2021-07-16] MEDS: metroNIDAZOLE 500 MG TAB PO SCH (20:26)
[2021-07-16] MEDS: Metoprolol Tartrate 25 MG TAB PO SCH (20:26)
[2021-07-17] MEDS: Cefepime 2 GM in Sodium Chloride 0.9% 100 ML IVPB SCH ×2 (00:24→12:04)
[2021-07-17] MEDS ORDERED: Rosuvastatin 20 MG TAB PO SCH (09:00)
[2021-07-17] MEDS ORDERED: Multivit, Chewable SF 1 TAB PO SCH (09:00)
[2021-07-17] MEDS: Enoxaparin Sodium 40 MG/0.4 ML SYRINGE SC SCH (09:46)
[2021-07-17] MEDS: Cyanocobalamin (Vitamin B-12) 1,000 MCG TAB PO SCH (09:46)
[2021-07-17] MEDS: metroNIDAZOLE 500 MG TAB PO SCH ×3 (09:47→20:16)
[2021-07-17] MEDS: Thiamine 100 MG TAB PO SCH (09:47)
[2021-07-17] MEDS: Folic Acid 1 MG TAB PO SCH (09:47)
[2021-07-17] MEDS: Saccharomyces boulardii 250 MG CAP PO SCH (09:47)
[2021-07-17] MEDS: Metoprolol Tartrate 25 MG TAB PO SCH ×2 (09:47→20:16)
[2021-07-17] MEDS: NIFEdipine XL 60 MG TAB PO SCH (09:47)
[2021-07-17] MEDS: Multivit, Therapeutic 1 TAB PO SCH (09:47)
[2021-07-17] MEDS: Fenofibrate Nanocrystallized 145 MG TAB PO SCH (09:47)
[2021-07-17] MEDS: Furosemide 20 MG TAB PO SCH ×2 (09:47)
[2021-07-17 10:04] LABS: Hemoglobin 10.8 g/dL (14.0-18.0); Mean Corpuscular HGB CONC 32.8 g/dL (32.0-36.0); Mean Corpuscular Hemoglobin 34.3 pg (27.0-31.0); Mean Platelet Volume 9.2 fL (7.4-10.4); Platelet Count 351 thou/uL (130-400); RBC Distribution Width 15.4 % (11.5-14.5); Red Blood Cell (RBC) Count 3.15 mill/uL (4.70-6.10); White Blood Cell (WBC) Count 15.6 thou/uL (4.8-10.8)
[2021-07-17 10:06] LABS: Anion Gap 18 mmol/L (10-20); BUN (Urea Nitrogen) 19 mg/dL (8.4-25.7); Calc. Creatinine Clearance 86 mL/min (70-130); Carbon Dioxide 18 mmol/L (23-31); Chloride 103 mmol/L (98-107); Glucose 79 mg/dL (80-115); Potassium 3.1 mmol/L (3.5-5.1); Sodium 136 mmol/L (136-145)
[2021-07-17 10:18] LABS: Hemoglobin A1c 5.7 % (4.0-6.0)
[2021-07-17] MEDS ORDERED: Potassium Chloride 20 MEQ TAB PO SCH (10:30)
[2021-07-17 13:05] LABS: Band 44 % (5-11); Lymphocytes 2 % (21-51); MDiff Complete? YES; Metamyelocyte 1 % (0-0); Monocytes 9 % (0-10); Neutrophil 42 % (42-75); Platelet Morphology Comment Appears Adequate; Polychromasia SLIGHT = 2-3 cells (100X) (0-2/hpf); Reactive Lymphocytes 2 % (0-10); Vacuoles SLIGHT
[2021-07-17] MEDS: Acetaminophen 325 MG TAB PO PRN (15:43)
[2021-07-17] MEDS ORDERED: VANCOMYCIN 1.75 GM/350 ML BAG 1.75 GM in Premix Bag 1 BAG IVPB SCH (16:00)
[2021-07-17] MEDS ORDERED: Lorazepam 1 MG TAB PO PRN (16:19)
[2021-07-17] MEDS: Aspirin Chewable 81 MG TAB PO SCH (20:16)
[2021-07-17] MEDS: Rosuvastatin 20 MG TAB PO SCH (20:16)
[2021-07-18] MEDS: Cefepime 2 GM in Sodium Chloride 0.9% 100 ML IVPB SCH ×2 (00:34→13:09)
[2021-07-18] MEDS: Enoxaparin Sodium 40 MG/0.4 ML SYRINGE SC SCH (08:01)
[2021-07-18] MEDS: Cyanocobalamin (Vitamin B-12) 1,000 MCG TAB PO SCH (08:01)
[2021-07-18] MEDS: Furosemide 20 MG TAB PO SCH (08:01)
[2021-07-18] MEDS: Saccharomyces boulardii 250 MG CAP PO SCH (08:01)
[2021-07-18] MEDS: Thiamine 100 MG TAB PO SCH (08:01)
[2021-07-18] MEDS: Folic Acid 1 MG TAB PO SCH (08:01)
[2021-07-18] MEDS: Multivit, Therapeutic 1 TAB PO SCH (08:01)
[2021-07-18] MEDS: Metoprolol Tartrate 25 MG TAB PO SCH ×2 (08:01→20:31)
[2021-07-18] MEDS: Fenofibrate Nanocrystallized 145 MG TAB PO SCH (08:01)
[2021-07-18] MEDS: metroNIDAZOLE 500 MG TAB PO SCH ×3 (08:01→20:31)
[2021-07-18] MEDS: NIFEdipine XL 60 MG TAB PO SCH (08:01)
[2021-07-18] MEDS: Acetaminophen 325 MG TAB PO PRN ×2 (10:59→23:31)
[2021-07-18 14:34] LABS: Hemoglobin 10.6 g/dL (14.0-18.0); Mean Corpuscular HGB CONC 31.4 g/dL (32.0-36.0); Mean Corpuscular Hemoglobin 33.3 pg (27.0-31.0); Mean Platelet Volume 8.3 fL (7.4-10.4); Platelet Count 352 thou/uL (130-400); RBC Distribution Width 15.5 % (11.5-14.5); Red Blood Cell (RBC) Count 3.17 mill/uL (4.70-6.10); White Blood Cell (WBC) Count 11.3 thou/uL (4.8-10.8)
[2021-07-18 14:50] LABS: Anisocytosis SLIGHT = 6-15 cells (100X) (0-5/hpf); Band 12 % (5-11); Eosinophils 1 % (0-10); Lymphocytes 5 % (21-51); MDiff Complete? YES; Macrocytosis SLIGHT = 6-15 cells (100X) (0-5/hpf); Monocytes 11 % (0-10); Myelocyte 2 % (0-0); Neutrophil 68 % (42-75); Platelet Morphology Comment Appears Adequate; Polychromasia SLIGHT = 2-3 cells (100X) (0-2/hpf)
[2021-07-18 14:53] LABS: Anion Gap 15 mmol/L (10-20); BUN (Urea Nitrogen) 14 mg/dL (8.4-25.7); Calc. Creatinine Clearance 97 mL/min (70-130); Calcium 8.2 mg/dL (7.8-10.44); Carbon Dioxide 20 mmol/L (23-31); Chloride 103 mmol/L (98-107); Glucose 104 mg/dL (80-115); Sodium 134 mmol/L (136-145)
[2021-07-18] MEDS ORDERED: Acetaminophen W/ Codeine 5 ML UDCUP PO PRN (15:09)
[2021-07-18] MEDS ORDERED: Lorazepam 1 MG TAB PO PRN (16:19)
[2021-07-18] MEDS: Aspirin Chewable 81 MG TAB PO SCH (20:31)
[2021-07-18] MEDS: Rosuvastatin 20 MG TAB PO SCH (20:31)
[2021-07-18] MEDS: Acetaminophen/Codeine 30-300mg Tablet PO PRN (20:32)
[2021-07-19] MEDS: Cefepime 2 GM in Sodium Chloride 0.9% 100 ML IVPB SCH (00:03)
[2021-07-19] MEDS ORDERED: Lorazepam 2 MG/ML VIAL SLOW IVP SCH (03:00)
[2021-07-19] MEDS ORDERED: OLANZapine 10 MG VIAL IM SCH (06:00)
[2021-07-19] MEDS ORDERED: Sterile Water 10 ML VIAL FS PRN (06:00)
[2021-07-19 08:30] LABS: Anion Gap 13 mmol/L (10-20); BUN (Urea Nitrogen) 10 mg/dL (8.4-25.7); Calc. Creatinine Clearance 114 mL/min (70-130); Calcium 8.2 mg/dL (7.8-10.44); Carbon Dioxide 23 mmol/L (23-31); Chloride 102 mmol/L (98-107); Glucose 103 mg/dL (80-115); Potassium 3.6 mmol/L (3.5-5.1); Sodium 134 mmol/L (136-145)
[2021-07-19] MEDS: Enoxaparin Sodium 40 MG/0.4 ML SYRINGE SC SCH (08:42)
[2021-07-19] MEDS: Multivit, Therapeutic 1 TAB PO SCH (08:42)
[2021-07-19] MEDS: Furosemide 20 MG TAB PO SCH (08:43)
[2021-07-19] MEDS: Metoprolol Tartrate 25 MG TAB PO SCH ×2 (08:43→19:40)
[2021-07-19] MEDS: NIFEdipine XL 60 MG TAB PO SCH (08:43)
[2021-07-19] MEDS: Fenofibrate Nanocrystallized 145 MG TAB PO SCH (08:43)
[2021-07-19] MEDS: metroNIDAZOLE 500 MG TAB PO SCH ×3 (08:43→19:41)
[2021-07-19] MEDS: Thiamine 100 MG TAB PO SCH (08:44)
[2021-07-19] MEDS: Saccharomyces boulardii 250 MG CAP PO SCH (08:44)
[2021-07-19] MEDS: Cyanocobalamin (Vitamin B-12) 1,000 MCG TAB PO SCH (08:44)
[2021-07-19] MEDS: Folic Acid 1 MG TAB PO SCH (08:44)
[2021-07-19] MEDS: Acetaminophen/Codeine 30-300mg Tablet PO PRN (08:52)
[2021-07-19 10:17] LABS: Band 3 % (5-11); Eosinophils 6 % (0-10); Hemoglobin 10.5 g/dL (14.0-18.0); Lymphocytes 12 % (21-51); MDiff Complete? YES; Mean Corpuscular HGB CONC 33.2 g/dL (32.0-36.0); Mean Corpuscular Hemoglobin 34.4 pg (27.0-31.0); Monocytes 12 % (0-10); Myelocyte 1 % (0-0); Neutrophil 66 % (42-75); Platelet Count 361 thou/uL (130-400); Platelet Morphology Comment Appears Adequate; RBC Distribution Width 15.4 % (11.5-14.5); RBC Morphology Normal; Red Blood Cell (RBC) Count 3.06 mill/uL (4.70-6.10); White Blood Cell (WBC) Count 12.6 thou/uL (4.8-10.8)
[2021-07-19] MEDS: Aspirin Chewable 81 MG TAB PO SCH (19:40)
[2021-07-19] MEDS: Acetaminophen 325 MG TAB PO PRN (19:40)
[2021-07-19] MEDS: Lorazepam 2 MG/ML VIAL SLOW IVP PRN (19:41)
[2021-07-19] MEDS: Rosuvastatin 20 MG TAB PO SCH (19:41)
[2021-07-20] MEDS: Lorazepam 2 MG/ML VIAL SLOW IVP PRN ×2 (01:18→20:16)
[2021-07-20 03:47] LABS: Anion Gap 14 mmol/L (10-20); BUN (Urea Nitrogen) 8 mg/dL (8.4-25.7); Calc. Creatinine Clearance 111 mL/min (70-130); Calcium 8.4 mg/dL (7.8-10.44); Carbon Dioxide 25 mmol/L (23-31); Chloride 101 mmol/L (98-107); Glucose 82 mg/dL (80-115); Potassium 3.8 mmol/L (3.5-5.1); Sodium 136 mmol/L (136-145)
[2021-07-20 04:03] LABS: Hemoglobin 10.7 g/dL (14.0-18.0); MDiff Complete? YES; Mean Corpuscular HGB CONC 32.7 g/dL (32.0-36.0); Mean Corpuscular Hemoglobin 33.9 pg (27.0-31.0); Platelet Count 379 thou/uL (130-400); RBC Distribution Width 15.3 % (11.5-14.5); Red Blood Cell (RBC) Count 3.16 mill/uL (4.70-6.10); White Blood Cell (WBC) Count 12.2 thou/uL (4.8-10.8)
[2021-07-20 04:04] LABS: Anisocytosis SLIGHT = 6-15 cells (100X) (0-5/hpf); Band 3 % (5-11); Eosinophils 6 % (0-10); Lymphocytes 15 % (21-51); Macrocytosis SLIGHT = 6-15 cells (100X) (0-5/hpf); Metamyelocyte 2 % (0-0); Monocytes 7 % (0-10); Myelocyte 5 % (0-0); Neutrophil 62 % (42-75); Platelet Morphology Comment Appears Adequate; Polychromasia SLIGHT = 2-3 cells (100X) (0-2/hpf); RBC Morphology Normal; Target Cells SLIGHT = 2-5 cells (100X) (0-1/hpf)
[2021-07-20] MEDS ORDERED: Heparin 10,000 UNITS/ 10 ML VIAL ONE (06:27)
[2021-07-20] MEDS ORDERED: Midazolam HCl 2 mg/2 ml Vial ONE (06:27)
[2021-07-20] MEDS ORDERED: Lidocaine 1% (PF) 30 ML VIAL ONE (06:27)
[2021-07-20] MEDS ORDERED: Fentanyl 100 MCG/2 ML VIAL ONE (06:27)
[2021-07-20] MEDS ORDERED: Iopamidol 370 76% 50 ML VIAL FS ONE (09:52)
[2021-07-20] MEDS: Fenofibrate Nanocrystallized 145 MG TAB PO SCH (09:52)
[2021-07-20] MEDS: Multivit, Therapeutic 1 TAB PO SCH (09:52)
[2021-07-20] MEDS: Folic Acid 1 MG TAB PO SCH (09:52)
[2021-07-20] MEDS: NIFEdipine XL 60 MG TAB PO SCH (09:52)
[2021-07-20] MEDS: Enoxaparin Sodium 40 MG/0.4 ML SYRINGE SC SCH (09:52)
[2021-07-20] MEDS: metroNIDAZOLE 500 MG TAB PO SCH ×3 (09:52→20:15)
[2021-07-20] MEDS: Cyanocobalamin (Vitamin B-12) 1,000 MCG TAB PO SCH (09:53)
[2021-07-20] MEDS: Saccharomyces boulardii 250 MG CAP PO SCH (09:53)
[2021-07-20] MEDS: Thiamine 100 MG TAB PO SCH (09:53)
[2021-07-20] MEDS: Metoprolol Tartrate 25 MG TAB PO SCH ×2 (09:53→20:15)
[2021-07-20] MEDS: Furosemide 20 MG TAB PO SCH (09:53)
[2021-07-20] MEDS: Penicillin V Potassium 250 MG TAB PO SCH (20:14)
[2021-07-20] MEDS: Aspirin Chewable 81 MG TAB PO SCH (20:15)
[2021-07-20] MEDS: Rosuvastatin 20 MG TAB PO SCH (20:15)
[2021-07-20] MEDS: Acetaminophen/Codeine 30-300mg Tablet PO PRN (20:15)
[2021-07-21] MEDS: Lorazepam 2 MG/ML VIAL SLOW IVP PRN ×3 (01:59→17:57)
[2021-07-21] MEDS: Acetaminophen/Codeine 30-300mg Tablet PO PRN ×2 (07:44→14:59)
[2021-07-21] MEDS: Enoxaparin Sodium 40 MG/0.4 ML SYRINGE SC SCH (09:12)
[2021-07-21] MEDS: NIFEdipine XL 60 MG TAB PO SCH (09:13)
[2021-07-21] MEDS: Multivit, Therapeutic 1 TAB PO SCH (09:13)
[2021-07-21] MEDS: Thiamine 100 MG TAB PO SCH (09:13)
[2021-07-21] MEDS: metroNIDAZOLE 500 MG TAB PO SCH ×3 (09:13→20:06)
[2021-07-21] MEDS: Penicillin V Potassium 250 MG TAB PO SCH ×2 (09:14→20:06)
[2021-07-21] MEDS: Saccharomyces boulardii 250 MG CAP PO SCH (09:14)
[2021-07-21] MEDS: Cyanocobalamin (Vitamin B-12) 1,000 MCG TAB PO SCH (09:14)
[2021-07-21] MEDS: Furosemide 20 MG TAB PO SCH (09:14)
[2021-07-21] MEDS: Folic Acid 1 MG TAB PO SCH (09:14)
[2021-07-21] MEDS: Metoprolol Tartrate 25 MG TAB PO SCH ×2 (09:14→20:06)
[2021-07-21] MEDS: Fenofibrate Nanocrystallized 145 MG TAB PO SCH (09:14)
[2021-07-21] MEDS: Acetaminophen 325 MG TAB PO PRN (20:04)
[2021-07-21] MEDS: Aspirin Chewable 81 MG TAB PO SCH (20:05)
[2021-07-21] MEDS: Rosuvastatin 20 MG TAB PO SCH (20:06)
[2021-07-21] MEDS: Lorazepam 0.5 MG TAB PO PRN (21:56)
[2021-07-22] MEDS: Lorazepam 0.5 MG TAB PO PRN ×2 (01:54→08:28)
[2021-07-22 08:11] VITALS: BP 145/77; TEMP 97.7
[2021-07-22] MEDS: NIFEdipine XL 60 MG TAB PO SCH (08:28)
[2021-07-22] MEDS: Metoprolol Tartrate 25 MG TAB PO SCH (08:28)
[2021-07-22] MEDS: Saccharomyces boulardii 250 MG CAP PO SCH (08:28)
[2021-07-22] MEDS: Cyanocobalamin (Vitamin B-12) 1,000 MCG TAB PO SCH (08:28)
[2021-07-22] MEDS: metroNIDAZOLE 500 MG TAB PO SCH (08:29)
[2021-07-22] MEDS: Fenofibrate Nanocrystallized 145 MG TAB PO SCH (08:29)
[2021-07-22] MEDS: Thiamine 100 MG TAB PO SCH (08:29)
[2021-07-22] MEDS: Furosemide 20 MG TAB PO SCH (08:29)
[2021-07-22] MEDS: Folic Acid 1 MG TAB PO SCH (08:29)
[2021-07-22] MEDS: Penicillin V Potassium 250 MG TAB PO SCH (08:30)
[2021-07-22] MEDS: Enoxaparin Sodium 40 MG/0.4 ML SYRINGE SC SCH (08:30)
[2021-07-22] MEDS: Multivit, Therapeutic 1 TAB PO SCH (08:30)
[2021-07-22] MEDS: Acetaminophen/Codeine 30-300mg Tablet PO PRN (14:32)
== END 2021-07-22 16:19 | DRG 300 ==
LOC: ERS 09:50 → T4-A 13:07 → OBSVTOIN 07-17 08:57
PROVIDERS: ADMIT Family Medicine; ATTEND Internal Medicine
PROC: B41D1ZZ Fluoroscopy of Aorta and Bilateral Lower Extremity Arteries using Low Osmolar Contrast (ICD-10-PCS; principal; 2021-07-20)
DX: E11.51 Type 2 diabetes mellitus with diabetic peripheral angiopathy without gangrene (principal); I50.22 Chronic systolic (congestive) heart failure; I13.0 Hypertensive heart and chronic kidney disease with heart failure and stage 1 through stage 4 chronic kidney disease, or unspecified chronic kidney disease; E87.1 Hypo-osmolality and hyponatremia; R19.7 Diarrhea, unspecified; J44.9 Chronic obstructive pulmonary disease, unspecified; E66.9 Obesity, unspecified; I48.0 Paroxysmal atrial fibrillation; N18.30 Chronic kidney disease, stage 3 unspecified; F10.20 Alcohol dependence, uncomplicated; E78.2 Mixed hyperlipidemia; D63.1 Anemia in chronic kidney disease; E78.00 Pure hypercholesterolemia, unspecified; I25.10 Atherosclerotic heart disease of native coronary artery without angina pectoris; K21.9 Gastro-esophageal reflux disease without esophagitis; Z28.21 Immunization not carried out because of patient refusal; Z68.30 Body mass index [BMI] 30.0-30.9, adult; Z86.14 Personal history of Methicillin resistant Staphylococcus aureus infection; Z89.511 Acquired absence of right leg below knee; Z95.810 Presence of automatic (implantable) cardiac defibrillator; Z87.11 Personal history of peptic ulcer disease; Z86.16 Personal history of COVID-19; Z88.8 Allergy status to other drugs, medicaments and biological substances; Z79.899 Other long term (current) drug therapy; Z79.82 Long term (current) use of aspirin; Z95.828 Presence of other vascular implants and grafts; Z87.891 Personal history of nicotine dependence
CPT/HCPCS: 36012; 36415; 36416; 71045; 80048; 80053; 83036; 83605; 84484; 85025; 87040; 87045; 87046; 87324; 87328; 87329; 87427; 87449; 93005; 93923; 96365; 96367; 96376; G0378; J0692; J1644; J1650; J2001; J2060; J2250; J2358; J3010; J3370; J3490; J7050; Q0162; Q9967

== ENCOUNTER 2021-08-05 02:28 | Emergency (ER) | payer OTHER ==
[2021-08-05 08:04] LABS: Hemoglobin 10.6 g/dL (14.0-18.0); Mean Corpuscular HGB CONC 34.4 g/dL (32.0-36.0); Mean Corpuscular Hemoglobin 35.6 pg (27.0-31.0); Mean Platelet Volume 8.6 fL (7.4-10.4); Platelet Count 293 thou/uL (130-400); RBC Distribution Width 15.1 % (11.5-14.5); Red Blood Cell (RBC) Count 2.99 mill/uL (4.70-6.10); White Blood Cell (WBC) Count 8.2 thou/uL (4.8-10.8)
[2021-08-05 08:08] LABS: ALT (SGPT) 32 U/L (8-55); AST (SGOT) 38 U/L (5-34); Albumin 3.4 g/dL (3.4-4.8); Alcohol Less than 10 mg/dL (Less than 10); Alkaline Phosphatase 51 U/L (40-110); Anion Gap 15 mmol/L (10-20); BUN (Urea Nitrogen) 15 mg/dL (8.4-25.7); Bilirubin, Total 0.2 mg/dL (0.2-1.2); Calc. Creatinine Clearance 0 mL/min (70-130); Calcium 9.3 mg/dL (7.8-10.44); Carbon Dioxide 23 mmol/L (23-31); Chloride 102 mmol/L (98-107); Globulin 3.9 g/dL (2.4-3.5); Glucose 108 mg/dL (80-115); Protein, Total 7.3 g/dL (5.8-8.1); Sodium 136 mmol/L (136-145)
[2021-08-05 08:22] LABS: Clarity Clear (Clear); Leukocyte Negative Leu/uL (Negative); Specific Gravity, Urine 1.021 (1.002-1.036)
[2021-08-05 08:23] LABS: Bilirubin Negative (Negative); Blood, Urine Negative (Negative); Glucose, Urine (Dipstick) Normal (Negative); Ketone, Urine Negative (Negative); Nitrite Negative (Negative); Protein, Urine (Dipstick) Negative (Neg-Trace); Urobilinogen Normal mg/dL (Less than 2)
[2021-08-05 08:36] LABS: Band 6 % (5-11); Eosinophils 8 % (0-10); Lymphocytes 20 % (21-51); Monocytes 15 % (0-10); Neutrophil 50 % (42-75); Reactive Lymphocytes 1 % (0-10)
[2021-08-05 08:39] LABS: Platelet Morphology Comment Appears Adequate; Polychromasia SLIGHT = 2-3 cells (100X) (0-2/hpf)
[2021-08-05 08:40] LABS: MDiff Complete? YES
[2021-08-05 08:42] LABS: Troponin I 0.012 ng/mL (< 0.028)
== END 2021-08-05 10:45 | disposition home or self-care (01) ==
LOC: ERS 02:28
DX: R53.1 Weakness (principal); I44.0 Atrioventricular block, first degree; W18.12XA Fall from or off toilet with subsequent striking against object, initial encounter; Y92.002 Bathroom of unspecified non-institutional (private) residence as the place of occurrence of the external cause
CPT/HCPCS: 51701; 70450; 80053; 80307; 81003; 83880; 84484; 85025; 93005

== ENCOUNTER 2021-08-21 20:17 | Inpatient (IN) | payer OTHER ==
[2021-08-21 22:02] LABS: #Basophils 0.1 thou/uL (0.0-0.2); #Eosinphils 0.5 thou/uL (0.0-0.7); #Lymphocytes 1.3 thou/uL (1.20-3.40); #Neutrophils 7.3 thou/uL (1.40-6.50); %Basophils 0.6 % (0.0-1.0); %Eosinophils 5.3 % (0.0-10.0); %Lymphocytes 13.2 % (21.0-51.0); %Monocytes 9.3 % (0.0-10.0); %Neutrophils 71.6 % (42.0-75.0); Hemoglobin 10.7 g/dL (14.0-18.0); Mean Corpuscular HGB CONC 33.5 g/dL (32.0-36.0); Mean Corpuscular Hemoglobin 35.3 pg (27.0-31.0); Mean Platelet Volume 8.4 fL (7.4-10.4); Platelet Count 285 thou/uL (130-400); RBC Distribution Width 14.7 % (11.5-14.5); Red Blood Cell (RBC) Count 3.04 mill/uL (4.70-6.10); White Blood Cell (WBC) Count 10.1 thou/uL (4.8-10.8)
[2021-08-21 22:16] LABS: ALT (SGPT) 25 U/L (8-55); AST (SGOT) 47 U/L (5-34); Albumin 3.7 g/dL (3.4-4.8); Alkaline Phosphatase 45 U/L (40-110); Anion Gap 19 mmol/L (10-20); BUN (Urea Nitrogen) 13 mg/dL (8.4-25.7); Bilirubin, Total 0.5 mg/dL (0.2-1.2); Calc. Creatinine Clearance 0 mL/min (70-130); Calcium 8.8 mg/dL (7.8-10.44); Carbon Dioxide 22 mmol/L (23-31); Chloride 101 mmol/L (98-107); Globulin 3.5 g/dL (2.4-3.5); Glucose 114 mg/dL (80-115); Potassium 3.6 mmol/L (3.5-5.1); Protein, Total 7.2 g/dL (5.8-8.1); Sodium 138 mmol/L (136-145)
[2021-08-21 22:29] LABS: Lipase Less than 32 U/L (8-78)
[2021-08-21] MEDS ORDERED: Thiamine HCl 200 MG/2 ML VIAL SLOW IVP SCH (23:45)
[2021-08-21] MEDS ORDERED: Folic Acid 1 MG, Multivitamins, Adult 10 ML in Dextrose 5 %-0.45 % NaCl 1,000 ML IV SCH (23:45)
[2021-08-22] MEDS ORDERED: Ondansetron ODT 4 MG TAB SL PRN (01:15)
[2021-08-22] MEDS ORDERED: Ondansetron PF 4 MG/2 ML Vial IVP PRN (01:15)
[2021-08-22] MEDS ORDERED: Acetaminophen 325 MG TAB PO PRN (01:15)
[2021-08-22 01:38] VITALS: BMI 32.8
[2021-08-22 02:10] LABS: Troponin I 0.018 ng/mL (< 0.028)
[2021-08-22] MEDS ORDERED: HumaLOG 300 UNITS/3 ML VIAL SC PRN ×2 (04:43)
[2021-08-22] MEDS ORDERED: Dextrose 5% in Water 1,000 ML IV PRN (04:43)
[2021-08-22] MEDS ORDERED: Dextrose 50% Abboject 50 ML SYRINGE SLOW IVP PRN (04:43)
[2021-08-22 04:59] LABS: Troponin I 0.013 ng/mL (< 0.028)
[2021-08-22 06:04] LABS: Bilirubin Negative (Negative); Blood, Urine Negative (Negative); Clarity Clear (Clear); Glucose, Urine (Dipstick) Normal (Negative); Ketone, Urine Negative (Negative); Leukocyte 25 Leu/uL (Negative); Nitrite 2+ (Negative); Protein, Urine (Dipstick) Negative (Neg-Trace); RBC/HPF None Seen HPF (0-3); Specific Gravity, Urine 1.014 (1.002-1.036); Squamous Epithelial None Seen HPF (0-3); Urobilinogen Normal mg/dL (Less than 2)
[2021-08-22 06:06] LABS: Bacteria/HPF 1+ HPF (None Seen)
[2021-08-22 06:09] LABS: Urine Culture Reflex Yes Yes
[2021-08-22 06:12] LABS: Amphetamine Not Detected (NotDetected); Barbiturates Screen Not Detected (NotDetected); Benzodiazepine Screen Not Detected (NotDetected); Cocaine Metabolite Screen Not Detected (NotDetected); Methadone Not Detected (NotDetected); Methamphetamine Not Detected (NotDetected); Opiate Screen Not Detected (NotDetected); Oxycodone Screen Not Detected (NotDetected); Phencyclidine (PCP) Not Detected (NotDetected); THC/Cannabinoid Screen Not Detected (NotDetected); Tricyclic Screen Detected (NotDetected)
[2021-08-22 06:40] LABS: #Basophils 0.1 thou/uL (0.0-0.2); #Eosinphils 0.5 thou/uL (0.0-0.7); #Lymphocytes 1.2 thou/uL (1.20-3.40); #Monocytes 0.8 thou/uL (0.11-0.59); #Neutrophils 5.4 thou/uL (1.40-6.50); %Basophils 0.7 % (0.0-1.0); %Eosinophils 6.3 % (0.0-10.0); %Lymphocytes 15.5 % (21.0-51.0); %Monocytes 10.2 % (0.0-10.0); %Neutrophils 67.3 % (42.0-75.0); Hemoglobin 10.9 g/dL (14.0-18.0); Mean Corpuscular HGB CONC 31.6 g/dL (32.0-36.0); Mean Corpuscular Hemoglobin 34.1 pg (27.0-31.0); Mean Platelet Volume 8.9 fL (7.4-10.4); Platelet Count 268 thou/uL (130-400); RBC Distribution Width 14.7 % (11.5-14.5); Red Blood Cell (RBC) Count 3.19 mill/uL (4.70-6.10)
[2021-08-22 06:53] LABS: Anion Gap 16 mmol/L (10-20); BUN (Urea Nitrogen) 11 mg/dL (8.4-25.7); Calc. Creatinine Clearance 89 mL/min (70-130); Calcium 8.6 mg/dL (7.8-10.44); Carbon Dioxide 24 mmol/L (23-31); Chloride 102 mmol/L (98-107); Glucose 139 mg/dL (80-115); Potassium 3.2 mmol/L (3.5-5.1); Sodium 139 mmol/L (136-145)
[2021-08-22] MEDS ORDERED: Ketoconazole 2% Cream 15 gm Tube TOP SCH (09:00)
[2021-08-22] MEDS ORDERED: Folic Acid 1 MG TAB PO SCH (09:00)
[2021-08-22] MEDS: Thiamine 100 MG TAB PO SCH (09:27)
[2021-08-22] MEDS: Potassium Bicarbonate/Cit Ac 20 MEQ TAB PO SCH ×2 (09:27→11:08)
[2021-08-22] MEDS: Enoxaparin Sodium 40 MG/0.4 ML SYRINGE SC SCH (09:27)
[2021-08-22] MEDS ORDERED: Clotrimazole 1 % Cream 30 GM TUBE TOP SCH (12:15)
[2021-08-22 14:54] LABS: SARS-CoV-2 PCR by NAA Not Detected (NotDetected)
[2021-08-22] MEDS: Aspirin Chewable 81 MG TAB PO SCH (20:10)
[2021-08-22] MEDS: Acetaminophen 500 MG TAB PO SCH (20:10)
[2021-08-22] MEDS: Metoprolol Tartrate 25 MG TAB PO SCH (20:10)
[2021-08-22] MEDS: Rosuvastatin 20 MG TAB PO SCH (20:12)
[2021-08-22] MEDS ORDERED: traMADol HCl 50 MG TAB PO SCH (23:30)
[2021-08-23 04:44] LABS: #Basophils 0.1 thou/uL (0.0-0.2); #Eosinphils 0.4 thou/uL (0.0-0.7); #Lymphocytes 1.4 thou/uL (1.20-3.40); #Monocytes 0.8 thou/uL (0.11-0.59); #Neutrophils 3.9 thou/uL (1.40-6.50); %Basophils 1.2 % (0.0-1.0); %Eosinophils 5.8 % (0.0-10.0); %Lymphocytes 21.7 % (21.0-51.0); %Monocytes 12.8 % (0.0-10.0); %Neutrophils 58.5 % (42.0-75.0); Hemoglobin 10.6 g/dL (14.0-18.0); Mean Corpuscular HGB CONC 31.5 g/dL (32.0-36.0); Mean Corpuscular Hemoglobin 33.8 pg (27.0-31.0); Mean Platelet Volume 8.2 fL (7.4-10.4); Platelet Count 269 thou/uL (130-400); RBC Distribution Width 14.7 % (11.5-14.5); Red Blood Cell (RBC) Count 3.15 mill/uL (4.70-6.10); White Blood Cell (WBC) Count 6.6 thou/uL (4.8-10.8)
[2021-08-23] MEDS: Folic Acid 1 MG TAB PO SCH (09:05)
[2021-08-23] MEDS: Metoprolol Tartrate 25 MG TAB PO SCH ×2 (09:05→21:32)
[2021-08-23] MEDS: Multivit, Therapeutic 1 TAB PO SCH (09:05)
[2021-08-23] MEDS: Furosemide 20 MG TAB PO SCH (09:05)
[2021-08-23] MEDS: NIFEdipine XL 60 MG TAB PO SCH (09:05)
[2021-08-23] MEDS: Thiamine 100 MG TAB PO SCH (09:06)
[2021-08-23] MEDS: Acetaminophen 500 MG TAB PO SCH ×3 (09:06→21:29)
[2021-08-23] MEDS: Fenofibrate Nanocrystallized 145 MG TAB PO SCH (09:06)
[2021-08-23] MEDS: Cyanocobalamin (Vitamin B-12) 1,000 MCG TAB PO SCH (09:06)
[2021-08-23] MEDS: Clotrimazole 1 % Cream 30 GM TUBE TOP SCH (09:07)
[2021-08-23] MEDS: Enoxaparin Sodium 40 MG/0.4 ML SYRINGE SC SCH (09:07)
[2021-08-23] MEDS: cefTRIAXone\\ROCEPHIN 2 GM in Sodium Chloride 0.9% 100 ML IVPB SCH (18:15)
[2021-08-23] MEDS ORDERED: Meloxicam 15 MG TAB PO SCH (18:15)
[2021-08-23] MEDS ORDERED: traZODone HCl 50 MG TAB PO PRN (20:00)
[2021-08-23] MEDS: Penicillin V Potassium 250 MG TAB PO SCH (21:28)
[2021-08-23] MEDS: Aspirin Chewable 81 MG TAB PO SCH (21:29)
[2021-08-23] MEDS: Rosuvastatin 20 MG TAB PO SCH (21:32)
[2021-08-23] MEDS: Polyethylene Glycol 3350 17 GM Packet PO SCH (22:55)
[2021-08-24 04:48] LABS: #Basophils 0.1 thou/uL (0.0-0.2); #Eosinphils 0.4 thou/uL (0.0-0.7); #Lymphocytes 1.6 thou/uL (1.20-3.40); #Monocytes 0.9 thou/uL (0.11-0.59); #Neutrophils 4.2 thou/uL (1.40-6.50); %Basophils 0.9 % (0.0-1.0); %Eosinophils 5.9 % (0.0-10.0); %Lymphocytes 22.3 % (21.0-51.0); %Monocytes 12.9 % (0.0-10.0); %Neutrophils 57.9 % (42.0-75.0); Mean Corpuscular HGB CONC 32.3 g/dL (32.0-36.0); Mean Platelet Volume 8.9 fL (7.4-10.4); Platelet Count 297 thou/uL (130-400); RBC Distribution Width 14.7 % (11.5-14.5); Red Blood Cell (RBC) Count 3.23 mill/uL (4.70-6.10); White Blood Cell (WBC) Count 7.3 thou/uL (4.8-10.8)
[2021-08-24 05:05] LABS: Anion Gap 14 mmol/L (10-20); BUN (Urea Nitrogen) 13 mg/dL (8.4-25.7); Calc. Creatinine Clearance 85 mL/min (70-130); Calcium 8.9 mg/dL (7.8-10.44); Carbon Dioxide 28 mmol/L (23-31); Chloride 99 mmol/L (98-107); Glucose 106 mg/dL (80-115); Potassium 3.7 mmol/L (3.5-5.1); Sodium 137 mmol/L (136-145)
[2021-08-24] MEDS: Enoxaparin Sodium 40 MG/0.4 ML SYRINGE SC SCH (09:46)
[2021-08-24] MEDS: NIFEdipine XL 60 MG TAB PO SCH (09:47)
[2021-08-24] MEDS: Polyethylene Glycol 3350 17 GM Packet PO SCH ×3 (09:47→20:15)
[2021-08-24] MEDS: Acetaminophen 500 MG TAB PO SCH ×3 (09:48→20:15)
[2021-08-24] MEDS: Saccharomyces boulardii 250 MG CAP PO SCH (09:48)
[2021-08-24] MEDS: Thiamine 100 MG TAB PO SCH (09:48)
[2021-08-24] MEDS: Fenofibrate Nanocrystallized 145 MG TAB PO SCH (09:49)
[2021-08-24] MEDS: Clotrimazole 1 % Cream 30 GM TUBE TOP SCH (09:49)
[2021-08-24] MEDS: Metoprolol Tartrate 25 MG TAB PO SCH ×2 (09:49→20:15)
[2021-08-24] MEDS: Folic Acid 1 MG TAB PO SCH (09:49)
[2021-08-24] MEDS: Cyanocobalamin (Vitamin B-12) 1,000 MCG TAB PO SCH (09:49)
[2021-08-24] MEDS: Furosemide 20 MG TAB PO SCH (09:49)
[2021-08-24] MEDS: Multivit, Therapeutic 1 TAB PO SCH (09:49)
[2021-08-24] MEDS: Penicillin V Potassium 250 MG TAB PO SCH ×2 (09:50→20:45)
[2021-08-24] MEDS: Meloxicam 15 MG TAB PO SCH (09:54)
[2021-08-24] MEDS: cefTRIAXone\\ROCEPHIN 2 GM in Sodium Chloride 0.9% 100 ML IVPB SCH (17:51)
[2021-08-24] MEDS: Aspirin Chewable 81 MG TAB PO SCH (20:15)
[2021-08-24] MEDS: Rosuvastatin 20 MG TAB PO SCH (20:15)
[2021-08-25 06:49] LABS: #Basophils 0.1 thou/uL (0.0-0.2); #Eosinphils 0.5 thou/uL (0.0-0.7); #Lymphocytes 1.4 thou/uL (1.20-3.40); #Monocytes 0.9 thou/uL (0.11-0.59); #Neutrophils 3.8 thou/uL (1.40-6.50); %Lymphocytes 21.3 % (21.0-51.0); %Neutrophils 57.7 % (42.0-75.0); Hemoglobin 12.4 g/dL (14.0-18.0); Mean Corpuscular HGB CONC 32.4 g/dL (32.0-36.0); Mean Corpuscular Hemoglobin 34.1 pg (27.0-31.0); Mean Platelet Volume 8.3 fL (7.4-10.4); Platelet Count 299 thou/uL (130-400); RBC Distribution Width 14.7 % (11.5-14.5); Red Blood Cell (RBC) Count 3.64 mill/uL (4.70-6.10); White Blood Cell (WBC) Count 6.6 thou/uL (4.8-10.8)
[2021-08-25 07:14] LABS: Anion Gap 14 mmol/L (10-20); BUN (Urea Nitrogen) 11 mg/dL (8.4-25.7); Calc. Creatinine Clearance 85 mL/min (70-130); Calcium 9.5 mg/dL (7.8-10.44); Carbon Dioxide 27 mmol/L (23-31); Chloride 99 mmol/L (98-107); Glucose 101 mg/dL (80-115); Potassium 3.8 mmol/L (3.5-5.1); Sodium 136 mmol/L (136-145)
[2021-08-25] MEDS: Fenofibrate Nanocrystallized 145 MG TAB PO SCH (08:09)
[2021-08-25] MEDS: Penicillin V Potassium 250 MG TAB PO SCH (08:09)
[2021-08-25] MEDS: Acetaminophen 500 MG TAB PO SCH ×2 (08:09→14:48)
[2021-08-25] MEDS: Metoprolol Tartrate 25 MG TAB PO SCH (08:10)
[2021-08-25] MEDS: Cyanocobalamin (Vitamin B-12) 1,000 MCG TAB PO SCH (08:11)
[2021-08-25] MEDS: Furosemide 20 MG TAB PO SCH (08:11)
[2021-08-25] MEDS: Folic Acid 1 MG TAB PO SCH (08:11)
[2021-08-25] MEDS: Multivit, Therapeutic 1 TAB PO SCH (08:11)
[2021-08-25] MEDS: Saccharomyces boulardii 250 MG CAP PO SCH (08:11)
[2021-08-25] MEDS: Meloxicam 15 MG TAB PO SCH (08:11)
[2021-08-25] MEDS: NIFEdipine XL 60 MG TAB PO SCH (08:12)
[2021-08-25] MEDS: Polyethylene Glycol 3350 17 GM Packet PO SCH (08:12)
[2021-08-25] MEDS: Clotrimazole 1 % Cream 30 GM TUBE TOP SCH (08:12)
[2021-08-25] MEDS: Enoxaparin Sodium 40 MG/0.4 ML SYRINGE SC SCH (08:12)
[2021-08-25] MEDS: Thiamine 100 MG TAB PO SCH (08:13)
[2021-08-25 12:55] VITALS: BP 129/62; TEMP 97.9
== END 2021-08-25 16:23 | disposition home health service (06) | DRG 689 ==
LOC: ERS 20:17 → 2NO 23:37 → OBSVTOIN 08-24 13:08 → T4-A 08-24 13:52
PROVIDERS: ADMIT Internal Medicine; ATTEND Hospitalist
DX: N39.0 Urinary tract infection, site not specified (principal); G92.8 Other toxic encephalopathy; I50.32 Chronic diastolic (congestive) heart failure; I25.10 Atherosclerotic heart disease of native coronary artery without angina pectoris; Z20.822 Contact with and (suspected) exposure to COVID-19; I11.0 Hypertensive heart disease with heart failure; E78.5 Hyperlipidemia, unspecified; I48.0 Paroxysmal atrial fibrillation; J44.9 Chronic obstructive pulmonary disease, unspecified; E11.51 Type 2 diabetes mellitus with diabetic peripheral angiopathy without gangrene; F10.10 Alcohol abuse, uncomplicated; F41.9 Anxiety disorder, unspecified; F32.A Depression, unspecified; M94.0 Chondrocostal junction syndrome [Tietze]; L30.4 Erythema intertrigo; D50.9 Iron deficiency anemia, unspecified; E66.9 Obesity, unspecified; R29.6 Repeated falls; Z95.810 Presence of automatic (implantable) cardiac defibrillator; Z91.81 History of falling; Z89.511 Acquired absence of right leg below knee; Z68.32 Body mass index [BMI] 32.0-32.9, adult; Z99.3 Dependence on wheelchair; Z79.899 Other long term (current) drug therapy; Z79.82 Long term (current) use of aspirin
CPT/HCPCS: 36415; 36416; 70450; 71045; 80048; 80053; 80306; 81001; 82140; 82607; 82746; 83605; 83690; 83880; 84484; 85025; 87040; 87077; 87086; 87186; 93005; 96365; 96372; 96375; G0378; J0696; J1650; J3411; J3490; J7042; U0003; U0005

== ENCOUNTER 2021-11-27 17:06 | Emergency (ER) | payer OTHER ==
[2021-11-27] MEDS ORDERED: Ketorolac Tromethamine 30 MG/ML VIAL ONE (19:00)
[2021-11-27] MEDS ORDERED: Fentanyl 100 MCG/2 ML VIAL ONE (19:00)
== END 2021-11-27 20:19 ==
LOC: ERS 17:06
DX: S06.9X9A Unspecified intracranial injury with loss of consciousness of unspecified duration, initial encounter (principal); S70.01XA Contusion of right hip, initial encounter; I11.0 Hypertensive heart disease with heart failure; I50.9 Heart failure, unspecified; W04.XXXA Fall while being carried or supported by other persons, initial encounter; Y92.129 Unspecified place in nursing home as the place of occurrence of the external cause; Z87.19 Personal history of other diseases of the digestive system; Z89.511 Acquired absence of right leg below knee; Z95.0 Presence of cardiac pacemaker; Z87.891 Personal history of nicotine dependence; Z79.82 Long term (current) use of aspirin; Z79.899 Other long term (current) drug therapy
CPT/HCPCS: 70450; 72170; 72192; 96372; J1885; J3010

== ENCOUNTER 2021-12-09 09:48 | Emergency (ER) | payer OTHER ==
[2021-12-09 10:55] LABS: #Basophils 0.1 thou/uL (0.0-0.2); #Eosinphils 0.6 thou/uL (0.0-0.7); #Lymphocytes 0.9 thou/uL (1.20-3.40); #Monocytes 1.3 thou/uL (0.11-0.59); #Neutrophils 8.1 thou/uL (1.40-6.50); %Basophils 0.6 % (0.0-1.0); %Eosinophils 5.5 % (0.0-10.0); %Lymphocytes 8.1 % (21.0-51.0); %Monocytes 11.5 % (0.0-10.0); %Neutrophils 74.3 % (42.0-75.0); Hemoglobin 11.6 g/dL (14.0-18.0); Mean Corpuscular HGB CONC 32.1 g/dL (32.0-36.0); Mean Corpuscular Hemoglobin 30.8 pg (27.0-31.0); Mean Corpuscular Volume 95.8 fL (78.0-98.0); Mean Platelet Volume 8.6 fL (7.4-10.4); Platelet Count 260 thou/uL (130-400); RBC Distribution Width 14.1 % (11.5-14.5); Red Blood Cell (RBC) Count 3.78 mill/uL (4.70-6.10); White Blood Cell (WBC) Count 10.9 thou/uL (4.8-10.8)
[2021-12-09 11:17] LABS: ALT (SGPT) 22 U/L (8-55); AST (SGOT) 42 U/L (5-34); Albumin 3.7 g/dL (3.4-4.8); Alcohol Less than 10 mg/dL (Less than 10); Alkaline Phosphatase 82 U/L (40-110); Anion Gap 17 mmol/L (10-20); BUN (Urea Nitrogen) 12 mg/dL (8.4-25.7); Bilirubin, Total 0.4 mg/dL (0.2-1.2); Calc. Creatinine Clearance 0 mL/min (70-130); Calcium 9.6 mg/dL (7.8-10.44); Carbon Dioxide 25 mmol/L (23-31); Chloride 103 mmol/L (98-107); Globulin 4.8 g/dL (2.4-3.5); Glucose 100 mg/dL (80-115); Potassium 4.6 mmol/L (3.5-5.1); Protein, Total 8.5 g/dL (5.8-8.1); Sodium 140 mmol/L (136-145)
[2021-12-09] MEDS ORDERED: Thiamine HCl 200 MG/2 ML VIAL IVPB SCH (11:30)
== END 2021-12-09 13:55 | disposition home or self-care (01) ==
LOC: ERS 09:48
DX: S16.1XXA Strain of muscle, fascia and tendon at neck level, initial encounter (principal); F10.10 Alcohol abuse, uncomplicated; R53.83 Other fatigue; I11.0 Hypertensive heart disease with heart failure; I50.9 Heart failure, unspecified; Z87.891 Personal history of nicotine dependence; Z79.82 Long term (current) use of aspirin; Z79.899 Other long term (current) drug therapy; W05.0XXA Fall from non-moving wheelchair, initial encounter; Y90.0 Blood alcohol level of less than 20 mg/100 ml
CPT/HCPCS: 36415; 70450; 72125; 72170; 80053; 80307; 85025; 93005; 96374; J3411

== ENCOUNTER 2022-01-18 09:24 | Inpatient (IN) | payer MEDICARE, OTHER ==
[2022-01-18] MEDS ORDERED: Nitroglycerin 2% Ointment 1 INCH/1 GM Packet ONE (10:08)
[2022-01-18 10:27] LABS: Hemoglobin 12.3 g/dL (14.0-18.0); Mean Corpuscular HGB CONC 30.6 g/dL (32.0-36.0); Mean Corpuscular Hemoglobin 28.9 pg (27.0-31.0); Mean Corpuscular Volume 94.4 fL (78.0-98.0); Mean Platelet Volume 8.8 fL (7.4-10.4); Platelet Count 270 thou/uL (130-400); RBC Distribution Width 15.9 % (11.5-14.5); Red Blood Cell (RBC) Count 4.28 mill/uL (4.70-6.10); White Blood Cell (WBC) Count 12.6 thou/uL (4.8-10.8)
[2022-01-18 10:48] LABS: ALT (SGPT) 12 U/L (8-55); AST (SGOT) 20 U/L (5-34); Albumin 4.1 g/dL (3.4-4.8); Alkaline Phosphatase 84 U/L (40-110); Anion Gap 17 mmol/L (10-20); BUN (Urea Nitrogen) 14 mg/dL (8.4-25.7); Bilirubin, Total 0.7 mg/dL (0.2-1.2); Calc. Creatinine Clearance 0 mL/min (70-130); Calcium 9.4 mg/dL (7.8-10.44); Carbon Dioxide 28 mmol/L (23-31); Chloride 101 mmol/L (98-107); Estimated GFR 95; Globulin 4.2 g/dL (2.4-3.5); Glucose 132 mg/dL (83-110); Potassium 4.4 mmol/L (3.5-5.1); Protein, Total 8.3 g/dL (5.8-8.1); Sodium 142 mmol/L (136-145)
[2022-01-18 11:07] LABS: Band 5 % (5-11); Lymphocytes 8 % (21-51); MDiff Complete? YES; Monocytes 9 % (0-10); Neutrophil 78 % (42-75); Platelet Morphology Comment Appears Adequate; RBC Morphology Normal
[2022-01-18] MEDS ORDERED: Furosemide 40 MG/4 ML VIAL ONE (11:47)
[2022-01-18 14:41] LABS: Troponin I 0.044 ng/mL (< 0.028)
[2022-01-18 16:11] LABS: Bacteria/HPF None Seen HPF (None Seen); Bilirubin Negative (Negative); Blood, Urine Negative (Negative); Clarity Clear (Clear); Glucose, Urine (Dipstick) Normal (Negative); Ketone, Urine Negative (Negative); Leukocyte Negative Leu/uL (Negative); Nitrite Negative (Negative); Protein, Urine (Dipstick) 200 mg/dL (Neg-Trace); RBC/HPF 0-3 HPF (0-3); Specific Gravity, Urine 1.015 (1.002-1.036); Squamous Epithelial None Seen HPF (0-3); Urobilinogen Normal mg/dL (Less than 2); WBC/HPF 0-3 HPF (0-3); pH, Urine 7.5 (5.0-9.0)
[2022-01-18 16:50] LABS: SARS-CoV-2 NAA Rapid Test Not Detected (NotDetected)
[2022-01-18] MEDS ORDERED: hydrALAZINE 20 MG/ML VIAL SLOW IVP PRN (17:28)
[2022-01-18] MEDS ORDERED: Lorazepam 2 MG/ML VIAL IM PRN (17:28)
[2022-01-18] MEDS ORDERED: Ondansetron ODT 4 MG TAB PO PRN ×2 (17:28)
[2022-01-18] MEDS ORDERED: Labetalol HCl 100 MG/20 ML VIAL SLOW IVP PRN (17:28)
[2022-01-18] MEDS ORDERED: Ondansetron PF 4 MG/2 ML Vial IVP PRN (17:28)
[2022-01-18] MEDS ORDERED: Lorazepam 1 MG TAB PO PRN (17:28)
[2022-01-18] MEDS ORDERED: Electrolyte Replacement Protocol 1 EACH FS SCH (17:30)
[2022-01-18] MEDS ORDERED: Furosemide 40 MG/4 ML VIAL SLOW IVP SCH (17:30)
[2022-01-18 17:43] LABS: Troponin I 0.045 ng/mL (< 0.028)
[2022-01-18] MEDS ORDERED: Electrolyte Replacement Protocol FS PRN (17:45)
[2022-01-18 18:04] VITALS: BMI 31.4
[2022-01-18 18:04] LABS: #Eosinphils 0.1 thou/uL (0.0-0.7); #Lymphocytes 1.5 thou/uL (1.20-3.40); #Monocytes 1.5 thou/uL (0.11-0.59); #Neutrophils 9.7 thou/uL (1.40-6.50); %Basophils 0.4 % (0.0-1.0); %Eosinophils 0.7 % (0.0-10.0); %Lymphocytes 11.3 % (21.0-51.0); %Monocytes 11.8 % (0.0-10.0); %Neutrophils 75.8 % (42.0-75.0); Hemoglobin 12.1 g/dL (14.0-18.0); Mean Corpuscular HGB CONC 31.6 g/dL (32.0-36.0); Mean Corpuscular Hemoglobin 29.9 pg (27.0-31.0); Mean Corpuscular Volume 94.8 fL (78.0-98.0); Mean Platelet Volume 8.9 fL (7.4-10.4); Platelet Count 244 thou/uL (130-400); RBC Distribution Width 15.9 % (11.5-14.5); Red Blood Cell (RBC) Count 4.04 mill/uL (4.70-6.10); White Blood Cell (WBC) Count 12.8 thou/uL (4.8-10.8)
[2022-01-18 18:24] LABS: ALT (SGPT) 10 U/L (8-55); AST (SGOT) 17 U/L (5-34); Albumin 3.9 g/dL (3.4-4.8); Alkaline Phosphatase 78 U/L (40-110); Anion Gap 14 mmol/L (10-20); BUN (Urea Nitrogen) 16 mg/dL (8.4-25.7); Bilirubin, Direct 0.4 mg/dL (0.1-0.3); Bilirubin, Total 0.8 mg/dL (0.2-1.2); Calc. Creatinine Clearance 112 mL/min (70-130); Calcium 9.5 mg/dL (7.8-10.44); Carbon Dioxide 33 mmol/L (23-31); Chloride 99 mmol/L (98-107); Estimated GFR 94; Globulin 4.2 g/dL (2.4-3.5); Glucose 137 mg/dL (83-110); Magnesium 1.9 mg/dL (1.6-2.6); Phosphorus 2.2 mg/dL (2.3-4.7); Potassium 3.5 mmol/L (3.5-5.1); Protein, Total 8.1 g/dL (5.8-8.1); Sodium 142 mmol/L (136-145)
[2022-01-18 18:26] LABS: Troponin I 0.048 ng/mL (< 0.028)
[2022-01-18] MEDS: Thiamine HCl 200 MG/2 ML VIAL SLOW IVP SCH (18:41)
[2022-01-18] MEDS ORDERED: Lorazepam (BATCHED) 2 MG/ML SYR SLOW IVP SCH (19:00)
[2022-01-18] MEDS: Lorazepam 1 MG TAB PO SCH ×2 (19:05→23:42)
[2022-01-18] MEDS ORDERED: Lorazepam 2 MG/ML VIAL SLOW IVP SCH ×2 (19:15→22:30)
[2022-01-18] MEDS: Rosuvastatin 20 MG TAB PO SCH (22:06)
[2022-01-18] MEDS: Famotidine 20 MG TAB PO SCH (22:06)
[2022-01-18] MEDS: Gabapentin 300 MG CAP PO SCH (22:06)
[2022-01-19] MEDS: Lorazepam 1 MG TAB PO SCH ×4 (02:56→17:29)
[2022-01-19] MEDS: Furosemide 20 MG/2 ML VIAL SLOW IVP SCH ×2 (06:40→15:13)
[2022-01-19] MEDS: Levothyroxine Sodium 50 MCG TAB PO SCH (06:40)
[2022-01-19 07:15] LABS: #Eosinphils 0.1 thou/uL (0.0-0.7); #Lymphocytes 1.5 thou/uL (1.20-3.40); #Monocytes 1.7 thou/uL (0.11-0.59); #Neutrophils 8.3 thou/uL (1.40-6.50); %Basophils 0.4 % (0.0-1.0); %Eosinophils 0.9 % (0.0-10.0); %Lymphocytes 12.6 % (21.0-51.0); %Monocytes 14.8 % (0.0-10.0); %Neutrophils 71.3 % (42.0-75.0); Hemoglobin 12.6 g/dL (14.0-18.0); Mean Corpuscular HGB CONC 31.5 g/dL (32.0-36.0); Mean Corpuscular Hemoglobin 29.5 pg (27.0-31.0); Mean Corpuscular Volume 93.7 fL (78.0-98.0); Mean Platelet Volume 8.6 fL (7.4-10.4); Platelet Count 269 thou/uL (130-400); Red Blood Cell (RBC) Count 4.29 mill/uL (4.70-6.10); White Blood Cell (WBC) Count 11.6 thou/uL (4.8-10.8)
[2022-01-19 07:37] LABS: ALT (SGPT) 10 U/L (8-55); AST (SGOT) 17 U/L (5-34); Albumin 3.8 g/dL (3.4-4.8); Alkaline Phosphatase 78 U/L (40-110); Anion Gap 14 mmol/L (10-20); BUN (Urea Nitrogen) 20 mg/dL (8.4-25.7); Bilirubin, Total 0.8 mg/dL (0.2-1.2); Calc. Creatinine Clearance 91 mL/min (70-130); Calcium 9.4 mg/dL (7.8-10.44); Carbon Dioxide 33 mmol/L (23-31); Chloride 97 mmol/L (98-107); Estimated GFR 87; Globulin 4.4 g/dL (2.4-3.5); Glucose 134 mg/dL (83-110); Potassium 3.3 mmol/L (3.5-5.1); Protein, Total 8.2 g/dL (5.8-8.1); Sodium 141 mmol/L (136-145)
[2022-01-19] MEDS ORDERED: Magnesium 2 GM/50 ML(in water) 2 GM in Premix Bag 1 BAG IVPB SCH (08:00)
[2022-01-19] MEDS ORDERED: Potassium Chloride 20 MEQ TAB PO SCH (08:00)
[2022-01-19] MEDS ORDERED: Multivit, Therapeutic 1 TAB PO SCH (09:00)
[2022-01-19] MEDS ORDERED: Folic Acid 1 MG TAB PO SCH (09:00)
[2022-01-19] MEDS: Gabapentin 300 MG CAP PO SCH ×2 (09:53→20:38)
[2022-01-19] MEDS: Aspirin Chewable 81 MG TAB PO SCH (09:53)
[2022-01-19] MEDS: Magnesium Oxide 400 MG TAB PO SCH (09:53)
[2022-01-19] MEDS: Famotidine 20 MG TAB PO SCH ×2 (09:54→20:38)
[2022-01-19] MEDS: Fenofibrate 48 MG TAB PO SCH (09:54)
[2022-01-19] MEDS: Cyanocobalamin (Vitamin B-12) 1,000 MCG TAB PO SCH (09:55)
[2022-01-19] MEDS: Multivit, Therapeutic 1 TAB PO SCH (09:55)
[2022-01-19] MEDS: Folic Acid 1 MG TAB PO SCH (09:55)
[2022-01-19] MEDS: Metoprolol Tartrate 25 MG TAB PO SCH (09:55)
[2022-01-19] MEDS ORDERED: Lorazepam 1 MG TAB PO PRN (17:28)
[2022-01-19] MEDS: Thiamine HCl 200 MG/2 ML VIAL SLOW IVP SCH (17:29)
[2022-01-19] MEDS: Rosuvastatin 20 MG TAB PO SCH (20:38)
[2022-01-20] MEDS: Lorazepam 1 MG TAB PO SCH ×3 (00:12→12:22)
[2022-01-20] MEDS: Levothyroxine Sodium 50 MCG TAB PO SCH (05:50)
[2022-01-20] MEDS: Furosemide 20 MG/2 ML VIAL SLOW IVP SCH ×2 (05:50→14:13)
[2022-01-20] MEDS: Aspirin Chewable 81 MG TAB PO SCH (10:07)
[2022-01-20] MEDS: Famotidine 20 MG TAB PO SCH ×2 (10:07→20:55)
[2022-01-20] MEDS: Magnesium Oxide 400 MG TAB PO SCH (10:07)
[2022-01-20] MEDS: Multivit, Therapeutic 1 TAB PO SCH (10:07)
[2022-01-20] MEDS: Folic Acid 1 MG TAB PO SCH (10:08)
[2022-01-20] MEDS: Metoprolol Tartrate 25 MG TAB PO SCH (10:08)
[2022-01-20] MEDS: Gabapentin 300 MG CAP PO SCH ×2 (10:08→20:53)
[2022-01-20] MEDS: Cyanocobalamin (Vitamin B-12) 1,000 MCG TAB PO SCH (10:08)
[2022-01-20] MEDS: Fenofibrate 48 MG TAB PO SCH (10:09)
[2022-01-20] MEDS ORDERED: Lorazepam 1 MG TAB PO PRN (17:28)
[2022-01-20] MEDS: Lorazepam 0.5 MG TAB PO SCH ×2 (18:26→20:54)
[2022-01-20] MEDS: Thiamine HCl 200 MG/2 ML VIAL SLOW IVP SCH (18:28)
[2022-01-20] MEDS: Rosuvastatin 20 MG TAB PO SCH (20:54)
[2022-01-21] MEDS: Lorazepam 0.5 MG TAB PO SCH ×2 (05:44→12:32)
[2022-01-21] MEDS: Levothyroxine Sodium 50 MCG TAB PO SCH (05:44)
[2022-01-21] MEDS: Thiamine 100 MG TAB PO SCH (08:40)
[2022-01-21] MEDS: Aspirin Chewable 81 MG TAB PO SCH (08:40)
[2022-01-21] MEDS: Magnesium Oxide 400 MG TAB PO SCH (08:40)
[2022-01-21] MEDS: Multivit, Therapeutic 1 TAB PO SCH (08:40)
[2022-01-21] MEDS: Folic Acid 1 MG TAB PO SCH (08:40)
[2022-01-21] MEDS: Cyanocobalamin (Vitamin B-12) 1,000 MCG TAB PO SCH (08:40)
[2022-01-21] MEDS: Famotidine 20 MG TAB PO SCH ×2 (08:40→20:24)
[2022-01-21] MEDS: Metoprolol Tartrate 25 MG TAB PO SCH (08:40)
[2022-01-21] MEDS: Gabapentin 300 MG CAP PO SCH ×2 (08:40→20:24)
[2022-01-21] MEDS: Fenofibrate 48 MG TAB PO SCH (09:46)
[2022-01-21] MEDS: Furosemide 20 MG/2 ML VIAL SLOW IVP SCH ×2 (10:18→14:10)
[2022-01-21] MEDS ORDERED: Thiamine 100 MG TAB PO SCH (17:30)
[2022-01-21] MEDS: Lorazepam 0.5 MG TAB PO PRN (20:24)
[2022-01-21] MEDS: Rosuvastatin 20 MG TAB PO SCH (20:25)
[2022-01-21] MEDS: Acetaminophen 500 MG TAB PO PRN (20:25)
[2022-01-21] MEDS: Melatonin 3 MG TAB PO PRN (22:46)
[2022-01-22] MEDS: Furosemide 20 MG/2 ML VIAL SLOW IVP SCH ×2 (06:10→13:54)
[2022-01-22] MEDS: Levothyroxine Sodium 50 MCG TAB PO SCH (06:11)
[2022-01-22] MEDS: Acetaminophen 500 MG TAB PO PRN ×3 (06:25→20:36)
[2022-01-22] MEDS: Cyanocobalamin (Vitamin B-12) 1,000 MCG TAB PO SCH (08:15)
[2022-01-22] MEDS: Folic Acid 1 MG TAB PO SCH (08:15)
[2022-01-22] MEDS: Fenofibrate 48 MG TAB PO SCH (08:15)
[2022-01-22] MEDS: Famotidine 20 MG TAB PO SCH ×2 (08:15→20:37)
[2022-01-22] MEDS: Thiamine 100 MG TAB PO SCH (08:15)
[2022-01-22] MEDS: Aspirin Chewable 81 MG TAB PO SCH (08:15)
[2022-01-22] MEDS: Gabapentin 300 MG CAP PO SCH ×2 (08:15→20:37)
[2022-01-22] MEDS: Magnesium Oxide 400 MG TAB PO SCH (08:16)
[2022-01-22] MEDS: Multivit, Therapeutic 1 TAB PO SCH (08:16)
[2022-01-22] MEDS: Metoprolol Tartrate 25 MG TAB PO SCH (08:16)
[2022-01-22] MEDS: HYDROcodone/Acetaminophen 5/325 mg Tablet PO PRN (18:08)
[2022-01-22] MEDS: Melatonin 3 MG TAB PO PRN (20:36)
[2022-01-22] MEDS: Rosuvastatin 20 MG TAB PO SCH (20:37)
[2022-01-23] MEDS: HYDROcodone/Acetaminophen 5/325 mg Tablet PO PRN ×2 (00:10→06:15)
[2022-01-23] MEDS: Levothyroxine Sodium 50 MCG TAB PO SCH (06:15)
[2022-01-23] MEDS: Furosemide 20 MG/2 ML VIAL SLOW IVP SCH (06:15)
[2022-01-23] MEDS: Multivit, Therapeutic 1 TAB PO SCH (07:50)
[2022-01-23] MEDS: Famotidine 20 MG TAB PO SCH (07:50)
[2022-01-23] MEDS: Aspirin Chewable 81 MG TAB PO SCH (07:51)
[2022-01-23] MEDS: Metoprolol Tartrate 25 MG TAB PO SCH (07:51)
[2022-01-23] MEDS: Thiamine 100 MG TAB PO SCH (07:51)
[2022-01-23] MEDS: Magnesium Oxide 400 MG TAB PO SCH (07:51)
[2022-01-23] MEDS: Folic Acid 1 MG TAB PO SCH (07:51)
[2022-01-23] MEDS: Cyanocobalamin (Vitamin B-12) 1,000 MCG TAB PO SCH (07:51)
[2022-01-23] MEDS: Gabapentin 300 MG CAP PO SCH (07:51)
[2022-01-23] MEDS: Fenofibrate 48 MG TAB PO SCH (07:51)
[2022-01-23] MEDS ORDERED: Potassium Chloride 20 MEQ TAB PO SCH (08:30)
[2022-01-23] MEDS ORDERED: Amlodipine 5 MG TAB PO SCH (09:00)
[2022-01-23 11:56] VITALS: BP 145/67; TEMP 97.4
[2022-01-23] MEDS: Lorazepam 0.5 MG TAB PO PRN (11:56)
== END 2022-01-23 13:30 | DRG 280 ==
LOC: ERS 09:24 → ERHOLD 13:35 → NEURO 16:38
PROVIDERS: ADMIT Family Medicine; ATTEND Family Medicine
DX: I11.0 Hypertensive heart disease with heart failure (principal); I21.A1 Myocardial infarction type 2; J96.21 Acute and chronic respiratory failure with hypoxia; G93.41 Metabolic encephalopathy; I50.33 Acute on chronic diastolic (congestive) heart failure; R44.3 Hallucinations, unspecified; R18.8 Other ascites; L03.116 Cellulitis of left lower limb; F10.231 Alcohol dependence with withdrawal delirium; N17.9 Acute kidney failure, unspecified; F31.9 Bipolar disorder, unspecified; F41.9 Anxiety disorder, unspecified; I25.10 Atherosclerotic heart disease of native coronary artery without angina pectoris; I48.0 Paroxysmal atrial fibrillation; J44.9 Chronic obstructive pulmonary disease, unspecified; I73.9 Peripheral vascular disease, unspecified; E66.01 Morbid (severe) obesity due to excess calories; E03.9 Hypothyroidism, unspecified; Z20.822 Contact with and (suspected) exposure to COVID-19; Z95.0 Presence of cardiac pacemaker; Z87.891 Personal history of nicotine dependence; Z88.8 Allergy status to other drugs, medicaments and biological substances; Z79.82 Long term (current) use of aspirin; Z79.899 Other long term (current) drug therapy; Z89.511 Acquired absence of right leg below knee; Z68.29 Body mass index [BMI] 29.0-29.9, adult
CPT/HCPCS: 36415; 71045; 80053; 81003; 81015; 82248; 83735; 83880; 84100; 84484; 85025; 93005; 96374; J0360; J1940; J2060; J3411; J3475; U0002; U0003; U0005

== ENCOUNTER 2022-11-06 15:21 | Emergency (ER) | payer OTHER, MEDICARE | END 2022-11-06 17:51 | LOC: ERS 15:21 | DX: F10.20 Alcohol dependence, uncomplicated (principal); I11.0 Hypertensive heart disease with heart failure; I50.9 Heart failure, unspecified; Z87.891 Personal history of nicotine dependence; Z79.899 Other long term (current) drug therapy; Z79.82 Long term (current) use of aspirin | CPT/HCPCS: 99283 ==